=== PATIENT | female | born 1980 | race Caucasian/White ===

== ENCOUNTER 2017-02-13 12:37 | Emergency (ER) | payer SELFPAY ==
--- NOTE | 2017-02-13 14:26 | RAD ---
INDICATION: Cough COMPARISON: None TECHNIQUE: PA and lateral views of the chest were obtained. FINDINGS: The heart and mediastinum are normal in size and contour. The lungs are grossly clear. There is no evidence of large pleural effusion. Visualized bones are normal for the patient's age. There is no radiographic evidence of free air beneath the diaphragm IMPRESSION: No radiographic evidence of acute cardiopulmonary disease.
--- NOTE | 2017-02-13 14:48 | ED ---
Shasta Rocha Erika, scribed for Lobo Cline MD on 02/13/17 at 1334 . Palpitations / Dysrhythmia - HPI Summary HPI Summary: Patient is a 36-year-old female presenting to the ED with a CC of palpitations starting a few days ago. Patient reports that she developed a rapid heart rate then. Associated symptoms include SOB and left 4th and 5th finger numbness. Patient also reports that since October 2016, she has had a cough, nausea, and decreased appetite. Cough is aggravated by deep breathing. Patient also reports symptoms of polydipsia and polyuria, and intermittent bilateral lower extremity swelling. Patient reports she has been under a lot of stress. She denies any chest pain. Patient takes suboxone and sertraline. Patient reports suboxone treatment started after patient was prescribed oxycodone for knee pain a few years ago. Hx kidney stones, anxiety. Patient is followed by Dr. Robertson. Patient smokes and is trying to quit. - History of Current Complaint Chief Complaint: EDShortnessOfBreath Time Seen by Provider: 02/13/17 12:55 Hx Obtained From: Patient Onset/Duration: Gradual Onset, Lasting Days, Still Present Timing: Constant Severity Currently: Moderate Character: Fast Alleviating: Nothing Associated Signs & Symptoms: Shortness of Breath - Allergy/Home Medications Allergies/Adverse Reactions: Allergies Allergy/AdvReac Type Severity Reaction Status Date / Time No Known Allergies Allergy Verified 02/13/17 12:45 PMH/Surg Hx/FS Hx/Imm Hx Endocrine/Hematology History: Reports: Hx Diabetes - Gestational Diabetes Denies: Hx Thyroid Disease Cardiovascular History: Denies: Hx Hypertension Respiratory History: Denies: Hx Asthma, Hx Chronic Obstructive Pulmonary Disease (COPD) GI History: Denies: Hx Ulcer Psychiatric History: Reports: Hx Anxiety, Hx Depression Denies: Hx Eating Disorder, Hx of Violent Episodes Against Others - Surgical History Surgery Procedure, Year, and Place: KIDNEY STENTS, C SECTION Infectious Disease History: Yes Infectious Disease History: Reports: Hx Shingles - Age 71` Denies: Hx Hepatitis, Hx Human Immunodeficiency Virus (HIV), Traveled Outside the [place] in Last 30 Days - Family History Known Family History: Positive: Other - depression - Social History Alcohol Use: Daily Alcohol Amount: 2 drinks Hx Substance Use: No Substance Use Type: Reports: None Hx Tobacco Use: Yes Smoking Status (MU): Light Every Day Tobacco Smoker Type: Cigarettes Review of Systems Constitutional: Other - polydipsia and polyuria Positive: Palpitations. Negative: Chest Pain Positive: Shortness Of Breath, Cough Positive: Nausea - with decreased appetite Positive: Edema - bilateral Positive: Numbness - left 4th and 5th fingers Positive: Anxious - with stress All Other Systems Reviewed And Are Negative: Yes Physical Exam Triage Information Reviewed: Yes Vital Signs On Initial Exam: Initial Vitals Temp Pulse Resp BP Pulse Ox 98.8 F 102 16 143/83 97 02/13/17 12:40 02/13/17 12:40 02/13/17 12:40 02/13/17 12:40 02/13/17 12:40 Vital Signs Reviewed: Yes Appearance: Positive: Well-Appearing, No Pain Distress, Obese Skin: Positive: Warm, Skin Color Reflects Adequate Perfusion, Dry, Other - Skin popping scars Head/Face: Positive: Normal Head/Face Inspection Eyes: Positive: Normal ENT: Positive: Normal ENT inspection Neck: Positive: Supple, Nontender Respiratory/Lung Sounds: Positive: Breath Sounds Present, Rhonchi - bilateral lung bases Cardiovascular: Positive: Tachycardia Abdomen Description: Positive: Nontender, Soft Bowel Sounds: Positive: Present Musculoskeletal: Positive: Normal Neurological: Positive: Normal Psychiatric: Positive: Anxious - [place] Coma Scale Coma Scale Total: 15 Diagnostics - Vital Signs Vital Signs Temp Pulse Resp BP Pulse Ox 02/13/17 12:40 98.8 F 102 16 143/83 97 - Laboratory Lab Results: Lab Results 02/13/17 Range/Units 13:22 Influenza A (Rapid) Negative (Negative) Influenza B (Rapid) Negative (Negative) Lab Statement: Any lab studies that have been ordered have been reviewed, and results considered in the medical decision making process. - Radiology CXR Radiology Interpretation Completed By: Radiologist - IMPRESSION: No radiographic evidence of acute cardiopulmonary disease. - EKG 12:56 Cardiac Rate: Tachycardia - borderline at 103 bpm EKG Rhythm: Sinus Tachycardia Re-Evaluation - Re-Evaluation First Eval Re-Evaluation Time: 14:41 Comment: Discussed all results with patient and answered patient's questions. Patient is no longer tachycardic. Pt will be discharged at this time Course/Dx - Course Course Of Treatment: Ms. Martinez C/O a productive cough and occasional rapid heart rate. She is trying to cut down on smoking and is down to about 1/2 ppd. She denies CP or SOB to me, her HR is initially about 100 and she is visibly anxious. A CXR was negative and her lungs were clear although she had paoxysmal coughing during the exam. After she calmed down, her HR dropped down and I am going to treat her for acute bronchitis and recommend close F/U. - Diagnoses Provider Diagnoses: Bronchitis Discharge - Discharge Plan Condition: Stable Disposition: HOME Prescriptions: Clarithromycin TAB* [Biaxin TAB*] 500 mg PO BID #20 tab guaiFENesin/CODIEN 100MG-10MG* [Robitussin AC 100Mg-10Mg*] 5 ml PO Q4H PRN #250 udc MDD 30 PRN Reason: Cough Patient Education Materials: Acute Bronchitis (ED) Referrals: Patricio Robertson MD [Medical Doctor] - 2 Days Additional Instructions: Please follow up with Dr. Robertson. The documentation as recorded by the Shasta levin Erika accurately reflects the service I personally performed and the decisions made by me, Lobo Cline MD.
[2017-02-13 15:02] VITALS: BP 127/72
== END 2017-02-13 15:01 | disposition home or self-care (01) ==
LOC: ED 12:37
DX: J40 Bronchitis, not specified as acute or chronic (principal); R00.0 Tachycardia, unspecified
CPT/HCPCS: 71020; 87502; 93005; 99283

== ENCOUNTER 2017-02-28 10:53 | Emergency (ER) | payer MEDICAID ==
[2017-02-28 11:21] VITALS: BP 147/85
--- NOTE | 2017-03-07 14:53 | UC ---
Nalini Rocha Alok, scribed for Vashti Hayden DO on 02/28/17 at 1218 . Complaint Female HPI - HPI Summary HPI Summary: 36 y/o female presents to the with N/V/D and c/o inability to tolerate food for over a month. Pt states that she is able to ingest liquid foods but often vomits it back up later, whereas solid food she is unable to ingest at all. Pt states her abd feels distended with tenderness to palpation and has lost about 15-20 lbs in the last month. Her nausea has been continuous, vomiting at least twice a day and her diarrhea is dark. Additionally, pt notes bilateral lower extremity edema with pruritus and erythema. Pt also notes some chills, scleral icterous as of two days ago, finger numbness in her left hand, lightheadedness, fatigue, dark urine color, heart racing, and SOB. Pt denies confusion, fever, sore throat, or ear ache. PMHx includes intrehepatic cholestasis and gestational DM during her last about 6 years ago with liver enzyme elevation she did not follow up on. Pt was last diagnosed with bronchitis 3 weeks ago after visiting the ED for increased HR, leg swelling, and a cough. Pt takes Zoloft and Soboxone. Pt states she has been stressed at home, and drinks EtOH daily approximately 4 drinks/day plus 15 cigarettes/day tobacco product. - History Of Current Complaint Chief Complaint: UCGeneralIllness Stated Complaint: NAUSEA,DIZZY,CONFUSED Time Seen by Provider: 02/28/17 11:00 Hx Obtained From: Patient Hx Last Menstrual Period: unknown ?: No Onset/Duration: Gradual Onset, Lasting Weeks, Still Present Timing: Constant Severity Initially: Moderate Severity Currently: Moderate Aggravating Factor(s): Nothing Alleviating Factor(s): Nothing Associated Signs And Symptoms: Positive: Nausea, Vomiting(# Of Episodes =) - twice per day. Negative: Fever - Allergies/Home Medications Allergies/Adverse Reactions: Allergies Allergy/AdvReac Type Severity Reaction Status Date / Time No Known Allergies Allergy Verified 02/28/17 11:21 PMH/Surg Hx/FS Hx/Imm Hx Previously Healthy: No Endocrine History Of: Reports: Diabetes - Gestational Diabetes Denies: Thyroid Disease Cardiovascular History Of: Denies: Cardiac Disorders, Hypertension Respiratory History Of: Denies: COPD, Asthma GI/ History Of: Denies: Ulcer - liver dz Psychological History Of: Reports: Anxiety, Depression - Surgical History Surgical History: Yes Surgery Procedure, Year, and Place: KIDNEY STENTS, C SECTION - Family History Known Family History: Positive: Hypertension - Mother, Diabetes - Grandmother, Other - depression Family History: R & n/C - Social History Lives: With Family Alcohol Use: Daily Alcohol Amount: 3 drinks per day Substance Use Type: None, Prescribed Substance Use Comment - Amount & Last Used: suboxone Smoking Status (MU): Light Every Day Tobacco Smoker Type: Cigarettes Amount Used/How Often: 1/2ppd Cessation Counseling: Patient Advised to Stop - Immunization History Most Recent Influenza Vaccination: [id number] Most Recent Tetanus Shot: Pt is unsure Most Recent Pneumonia Vaccination: never Review of Systems Constitutional: Chills Skin: Rash - bl le redness Eyes: Other - scleral icterous ENT: Negative Respiratory: Shortness Of Breath Cardiovascular: Negative Gastrointestinal: Abdominal Pain, Vomiting, Diarrhea Genitourinary: Other - Dark urine Motor: Negative Neurovascular: Other - left hand finger numbness Musculoskeletal: Edema - bl le Neurological: Weakness Psychological: Anxious All Other Systems Reviewed And Are Negative: Yes Physical Exam Triage Information Reviewed: Yes Appearance: No Pain Distress, Ill-Appearing - mild, Obese Vital Signs: Initial Vital Signs Temp 96.7 F 02/28/17 11:14 Pulse 108 02/28/17 11:14 Resp 24 02/28/17 11:14 BP 147/85 02/28/17 11:14 Pulse Ox 98 02/28/17 11:14 Vital Signs Reviewed: Yes Eyes: Positive: Other: - borderline sclera icterus. Negative: Discharge ENT: Positive: Hearing grossly normal. Negative: Muffled/hoarse voice Neck exam: Normal Neck: Positive: Supple Respiratory: Positive: Lungs clear, Normal breath sounds, No respiratory distress, No accessory muscle use Cardiovascular: Positive: RRR, No Murmur Abdomen Description: Positive: Distended, Hepatomegaly, Other: - eval for shifting dullness inconclusive. Negative: CVA Tenderness (R), CVA Tenderness (L ), Guarding, [place]'s Point Tenderness Bowel Sounds: Positive: Present Musculoskeletal Exam: Normal Neurological: Positive: Alert, Muscle Tone Normal Psychological Exam: Normal Psychological: Positive: Age Appropriate Behavior Skin Exam: Normal, Other - warm, dry, normal color Diagnostics - EKG Cardiac Rate: Tachycardia - 106 bpm Cardiac Rhythm: Sinus: New - Time: 1105. No ST Elevations Complaint Female Dx - Differential Dx/Diagnosis Differential Diagnosis/HQI/PQRI: Urinary Tract Infection, Other - hepatitis, ascites, metabolic abnormality Provider Diagnoses: lower extremity edema Discharge - Discharge Plan Condition: Stable Disposition: TRANS HIGHER LVL OF CARE FAC Referrals: Brian Rios MD [Primary Care Provider] - The documentation as recorded by the Nalini levin Alok accurately reflects the service I personally performed and the decisions made by , Vashti Hayden DO.
== END 2017-02-28 13:20 | disposition short-term general hospital (02) ==
LOC: UCEAST 10:53
DX: R60.0 Localized edema (principal); R06.02 Shortness of breath; R42 Dizziness and giddiness; R53.83 Other fatigue; R21 Rash and other nonspecific skin eruption; R11.2 Nausea with vomiting, unspecified; R20.0 Anesthesia of skin; R00.0 Tachycardia, unspecified; F41.8 Other specified anxiety disorders; E66.9 Obesity, unspecified; F17.210 Nicotine dependence, cigarettes, uncomplicated
CPT/HCPCS: 93005; 99213; G0463

== ENCOUNTER 2017-02-28 13:36 | Inpatient (IN) | payer MEDICAID, OTHER ==
[2017-02-28] MEDS ORDERED: NS 0.9% 1000 ML* 1,000 ML IV ONE (15:00)
[2017-02-28] MEDS ORDERED: Ondansetron INJ* 2 MG/ML VIAL IV ONE (15:00)
[2017-02-28 15:30] LABS: Hematocrit 32 % (35-47); Hemoglobin 10.7 g/dl (12.0-16.0); Mean Corpuscular HGB Conc 34 g/dl (31-36); Mean Corpuscular Hemoglobin 33 pg (27-31); Mean Corpuscular Volume 100 fL (80-97); Mean Platelet Volume 11 um3 (7.4-10.4); Red Blood Count 3.21 10^6/ul (4.0-5.4); Red Cell Distribution Width 16 % (10.5-15); White Blood Count 9.7 10^3/ul (3.5-10.8)
[2017-02-28 15:53] LABS: Urine Bacteria Absent (Absent); Urine Bilirubin 2+ (Negative); Urine Glucose Negative (Negative); Urine Nitrite Negative (Negative)
[2017-02-28 16:03] LABS: ALT 59 U/L (7-52); AST 201 U/L (13-39); Albumin 2.7 g/dL (3.2-5.2); Alkaline Phosphatase 292 U/L (34-104); Anion Gap 8 mmol/L (2-11); BUN/Creatinine Ratio 6.8 (8-20); Blood Urea Nitrogen 3 mg/dL (6-24); CO2 Carbon Dioxide 29 mmol/L (22-32); Calcium 8.3 mg/dL (8.6-10.3); Chloride 98 mmol/L (101-111); EGFR African American 206.9 (>60); EGFR Non-African American 160.9 (>60); Globulin 4.8 g/dL (2-4); Glucose 162 mg/dL (70-100); Potassium 3.2 mmol/L (3.5-5.0); Sodium 135 mmol/L (133-145); Total Protein 7.5 g/dL (6.4-8.9)
--- NOTE | 2017-02-28 16:06 | RAD ---
INDICATION: Distended abdomen, enlarged liver and evaluate for ascites. COMPARISON: Comparison is made with a prior CT of the abdomen and pelvis from November 25, 2013. TECHNIQUE: Multiple real-time images of the right upper quadrant were obtained. FINDINGS: The gallbladder appear normal. No gallbladder wall thickening or pericholecystic fluid is present. No intra or extrahepatic ductal distention is present. The common bile duct measured 0.5 cm in diameter. The liver is enlarged and heterogeneous in echogenicity. No focal abnormality is seen. The portal vein is not well visualized. The pancreas is not visualized. The right kidney is normal in size without evidence for hydronephrosis. There is a small amount of ascites adjacent to the liver. IMPRESSION: 1. ENLARGED HETEROGENEOUS LIVER. 2. SMALL AMOUNT OF ASCITES.
--- NOTE | 2017-02-28 16:15 | RAD ---
INDICATION: Nausea. COMPARISON: Comparison is made with a prior chest x-ray study from our 26 2017. TECHNIQUE: A portable view of the chest was obtained. FINDINGS: Cardiac and mediastinal contours appear to be within normal limits. The lungs are clear. No pleural effusion is seen. IMPRESSION: NO EVIDENCE FOR ACUTE DISEASE.
[2017-02-28] MEDS ORDERED: Potassium Chlor TAB* 20 MEQ TAB.ER PO ONE (17:31)
--- NOTE | 2017-02-28 17:34 | ED ---
Aj, DoctorChinyere, scribed for Miroslava Bonds MD on 02/28/17 at 1501 . Complex/Multi-Sys Presentation - HPI Summary HPI Summary: 36 year old female arrived to [facility] c/o nausea and decreased appetite for the past few weeks. She reports vomiting, diarrhea, and stomach distention as well. Pt was dx with Bronchitis at [facility] a few weeks ago; no longer coughing. She reports a PMHx of gestational diabetes and intrahepatic cholestasis with her past two pregnancies. Additionally, pt is a regular drinker and reports skin diaphoresis with alcohol withdrawal; pt has history with narcotics abuse ( currently taking Seboxone). - History Of Current Complaint Chief Complaint: EDWeakness Hx Obtained From: Patient Onset/Duration: Gradual Onset Timing: Constant Severity Currently: Moderate Severity Initially: Moderate Associated Signs And Symptoms: Positive: Nausea, Vomiting, Diarrhea, Decreased Oral Intake, Diaphoresis - with alcohol withdrawal, Other - stomach distention - Allergies/Home Medications Allergies/Adverse Reactions: Allergies Allergy/AdvReac Type Severity Reaction Status Date / Time No Known Allergies Allergy Verified 02/28/17 11:21 Home Medications: Home Medications Buprenorphine/Naloxone SL TAB* [Suboxone 8-2 mg SL TAB*] 1 tab.sl SL DAILY 02/28 [History Confirmed 02/28/17] PMH/Surg Hx/FS Hx/Imm Hx Endocrine/Hematology History: Reports: Hx Diabetes - Gestational Diabetes Denies: Hx Thyroid Disease Cardiovascular History: Denies: Hx Hypertension Respiratory History: Denies: Hx Asthma, Hx Chronic Obstructive Pulmonary Disease (COPD) GI History: Denies: Hx Ulcer Psychiatric History: Reports: Hx Anxiety, Hx Depression Denies: Hx Eating Disorder, Hx of Violent Episodes Against Others - Surgical History Surgery Procedure, Year, and Place: KIDNEY STENTS, C SECTION Infectious Disease History: No Infectious Disease History: Reports: Hx Shingles - Age 71` Denies: Hx Hepatitis, Hx Human Immunodeficiency Virus (HIV), Traveled Outside the [place] in Last 30 Days - Family History Known Family History: Positive: Other - depression Family History: R & n/C - Social History Occupation: Employed Full-time Lives: With Family Alcohol Use: Daily Alcohol Amount: 3 drinks per day Hx Substance Use: No Substance Use Type: Reports: None, Prescribed Substance Use Comment - Amount & Last Used: suboxone Hx Tobacco Use: Yes Smoking Status (MU): Light Every Day Tobacco Smoker Type: Cigarettes Amount Used/How Often: 1/2ppd Review of Systems Positive: Skin Diaphoresis - with alcohol withdrawal. Negative: Fever Positive: Vomiting, Diarrhea, Nausea, Other - decreased per os intake Positive: Other - stomach distention All Other Systems Reviewed And Are Negative: Yes Physical Exam Triage Information Reviewed: Yes Vital Signs On Initial Exam: Initial Vitals Temp Pulse Resp BP Pulse Ox 99.8 F 104 18 146/79 96 02/28/17 13:44 02/28/17 13:44 02/28/17 13:44 02/28/17 13:44 02/28/17 13:44 Vital Signs Reviewed: Yes Appearance: Positive: Well-Appearing, No Pain Distress Skin: Positive: Warm, Skin Color Reflects Adequate Perfusion, Dry Eyes: Positive: EOMI, ADDI ENT: Positive: Pharynx normal, TMs normal Neck: Positive: Supple, Nontender Respiratory/Lung Sounds: Positive: Clear to Auscultation, Breath Sounds Present. Negative: Rales, Rhonchi, Wheezes Cardiovascular: Positive: RRR. Negative: Murmur, Rub Abdomen Description: Positive: Soft, Other: - Liver edge 4 cm below position. Negative: Nontender Bowel Sounds: Positive: Present Musculoskeletal: Positive: Strength/ROM Intact, Edema Left - some bilateral lower extremity edema, Edema Right - some bilateral lower extremity edema Neurological: Positive: Sensory/Motor Intact, Alert, Oriented to Person Place, Time, CN Intact II-III Psychiatric: Positive: Affect/Mood Appropriate - [place] Coma Scale Coma Scale Total: 15 Diagnostics - Vital Signs Vital Signs Temp Pulse Resp BP Pulse Ox 02/28/17 13:45 99.8 F 103 18 146/79 96 02/28/17 13:44 99.8 F 104 18 146/79 96 - Laboratory Lab Results: Lab Results 02/28/17 02/28/17 02/28/17 Range/Units 12:40 12:40 12:40 WBC 9.7 (3.5-10.8) 10^3/ul RBC 3.21 L (4.0-5.4) 10^6/ul Hgb 10.7 L (12.0-16.0) g/dl Hct 32 L (35-47) % MCV 100 H (80-97) fL MCH 33 H (27-31) pg MCHC 34 (31-36) g/dl RDW 16 H (10.5-15) % Plt Count 119 L (150-450) 10^3/ul MPV 11 H (7.4-10.4) um3 Neut % (Auto) 84.8 H (38-83) % Lymph % (Auto) 8.8 L (25-47) % [place] % (Auto) 5.1 (1-9) % Eos % (Auto) 0.5 (0-6) % Baso % (Auto) 0.8 (0-2) % Absolute Neuts (auto) 8.2 H (1.5-7.7) 10^3/ul Absolute Lymphs (auto) 0.9 L (1.0-4.8) 10^3/ul Absolute Monos (auto) 0.5 (0-0.8) 10^3/ul Absolute Eos (auto) 0 (0-0.6) 10^3/ul Absolute Basos (auto) 0.1 (0-0.2) 10^3/ul Absolute Nucleated RBC 0 10^3/ul Nucleated RBC % 0 INR (Anticoag Therapy) 1.65 H (0.89-1.11) APTT 38.0 H (26.0-36.3) seconds Sodium 135 (133-145) mmol/L Potassium 3.2 L (3.5-5.0) mmol/L Chloride 98 L (101-111) mmol/L Carbon Dioxide 29 (22-32) mmol/L Anion Gap 8 (2-11) mmol/L BUN 3 L (6-24) mg/dL Creatinine 0.44 L (0.51-0.95) mg/dL Est GFR ( Amer) 206.9 (>60) Est GFR (Non-Af Amer) 160.9 (>60) BUN/Creatinine Ratio 6.8 L (8-20) Glucose 162 H (70-100) mg/dL Lactic Acid (0.5-2.0) mmol/L Calcium 8.3 L (8.6-10.3) mg/dL Total Bilirubin 6.60 H (0.2-1.0) mg/dL AST 201 H (13-39) U/L ALT 59 H (7-52) U/L Alkaline Phosphatase 292 H (34-104) U/L Ammonia (16-53) mol/L Troponin I Pending Total Protein 7.5 (6.4-8.9) g/dL Albumin 2.7 L (3.2-5.2) g/dL Globulin 4.8 H (2-4) g/dL Albumin/Globulin Ratio 0.6 L (1-3) Beta HCG, Quant Pending Urine Color Urine Appearance Urine pH (5-9) Ur Specific [place] (1.010-1.030) Urine Protein (Negative) Urine Ketones (Negative) Urine Blood (Negative) Urine Nitrate (Negative) Urine Bilirubin (Negative) Urine Urobilinogen (Negative) Ur Leukocyte Esterase (Negative) Urine WBC (Auto) (Absent) Urine RBC (Auto) (Absent) Ur Squamous Epith Cells (Absent) Urine Bacteria (Absent) Urine Glucose (Negative) 02/28/17 02/28/17 02/28/17 Range/Units 15:40 15:40 15:40 WBC (3.5-10.8) 10^3/ul RBC (4.0-5.4) 10^6/ul Hgb (12.0-16.0) g/dl Hct (35-47) % MCV (80-97) fL MCH (27-31) pg MCHC (31-36) g/dl RDW (10.5-15) % Plt Count (150-450) 10^3/ul MPV (7.4-10.4) um3 Neut % (Auto) (38-83) % Lymph % (Auto) (25-47) % [place] % (Auto) (1-9) % Eos % (Auto) (0-6) % Baso % (Auto) (0-2) % Absolute Neuts (auto) (1.5-7.7) 10^3/ul Absolute Lymphs (auto) (1.0-4.8) 10^3/ul Absolute Monos (auto) (0-0.8) 10^3/ul Absolute Eos (auto) (0-0.6) 10^3/ul Absolute Basos (auto) (0-0.2) 10^3/ul Absolute Nucleated RBC 10^3/ul Nucleated RBC % INR (Anticoag Therapy) (0.89-1.11) APTT (26.0-36.3) seconds Sodium (133-145) mmol/L Potassium (3.5-5.0) mmol/L Chloride (101-111) mmol/L Carbon Dioxide (22-32) mmol/L Anion Gap (2-11) mmol/L BUN (6-24) mg/dL Creatinine (0.51-0.95) mg/dL Est GFR ( Amer) (>60) Est GFR (Non-Af Amer) (>60) BUN/Creatinine Ratio (8-20) Glucose (70-100) mg/dL Lactic Acid 1.6 (0.5-2.0) mmol/L Calcium (8.6-10.3) mg/dL Total Bilirubin (0.2-1.0) mg/dL AST (13-39) U/L ALT (7-52) U/L Alkaline Phosphatase (34-104) U/L Ammonia 101 H (16-53) mol/L Troponin I Total Protein (6.4-8.9) g/dL Albumin (3.2-5.2) g/dL Globulin (2-4) g/dL Albumin/Globulin Ratio (1-3) Beta HCG, Quant Urine Color Sue Urine Appearance Clear Urine pH 7.0 (5-9) Ur Specific [place] 1.014 (1.010-1.030) Urine Protein 2+(100 mg/dl) H (Negative) Urine Ketones Negative (Negative) Urine Blood Negative (Negative) Urine Nitrate Negative (Negative) Urine Bilirubin 2+ H (Negative) Urine Urobilinogen Positive H (Negative) Ur Leukocyte Esterase Negative (Negative) Urine WBC (Auto) Trace(0-5/hpf) (Absent) Urine RBC (Auto) Trace(0-2/hpf) (Absent) Ur Squamous Epith Cells Present H (Absent) Urine Bacteria Absent (Absent) Urine Glucose Negative (Negative) Result Diagrams: 02/28/17 12:40 02/28/17 12:40 Lab Statement: Any lab studies that have been ordered have been reviewed, and results considered in the medical decision making process. - Radiology CXR Radiology Interpretation Completed By: Radiologist - IMPRESSION: NO EVIDENCE FOR ACUTE DISEASE. - Ultrasound No standard instances Ultrasound Interpretation Completed By: Radiologist - Abdomen US IMPRESSION: 1. ENLARGED HETEROGENEOUS LIVER. 2. SMALL AMOUNT OF ASCITES. Complex Multi-Symp Course/Dx Course Of Treatment: 36 yo female with a difficult social situation,she is leaving the father of her children. Both the father and the pt drink heavily, she is stable on suboxone for opiate use disorder (she has never injected drugs ) and reports several weeks of vomiting and at this point not being able to keep anything down, she notices that her abdomen is bloated. She does admit to being quite fearful that her symptoms are due to her liver. Her labs show she does have cirhossis and GI and the hospitalists have been contacted - Diagnoses Provider Diagnoses: Cirrhosis, Alcoholism - Physician Notifications Discussed Care Of Patient With: 15:18 - Discussed care of pt with Dr. Anthony ( hospitalist), agrees to admit pt. 16:37 - Discussed care of pt with Dr. Nash (GI) Discharge - Discharge Plan Condition: Stable Disposition: ADMITTED TO [facility] The documentation as recorded by the Doctor levin Tahera accurately reflects the service I personally performed and the decisions made by me, Miroslava Bonds MD.
[2017-02-28] MEDS ORDERED: Nicotine Inhaler* 10 MG AMP INH PRN (17:49)
[2017-02-28] MEDS: Spironolactone TAB* 25 MG PO SCH (18:13)
[2017-02-28] MEDS: Thiamine TAB* 100 MG TAB PO SCH (18:14)
[2017-02-28] MEDS: Nicotine PATCH 14 MG/24 HR* PATCH TRANSDERM SCH (18:14)
[2017-02-28 18:27] LABS: Troponin I 0.01 ng/mL (<0.04)
[2017-02-28] MEDS: Lactulose* 15 ML UDC PO SCH (21:24)
[2017-02-28] MEDS: Nicotine Patch Removal NOTE PATCH OFF SCH (21:24)
[2017-02-28] MEDS: LORazepam TAB(*) 1 MG PO SCH (22:32)
[2017-02-28] MEDS ORDERED: CMCS - Melatonin (NF) 3 MG TAB PO PRN (22:59)
[2017-03-01] MEDS: LORazepam TAB(*) 1 MG PO SCH (00:50)
[2017-03-01 05:02] LABS: Hematocrit 30 % (35-47); Hemoglobin 10.2 g/dl (12.0-16.0); Mean Corpuscular HGB Conc 34 g/dl (31-36); Mean Corpuscular Hemoglobin 34 pg (27-31); Mean Corpuscular Volume 100 fL (80-97); Mean Platelet Volume 10 um3 (7.4-10.4); Red Blood Count 3.04 10^6/ul (4.0-5.4); Red Cell Distribution Width 16 % (10.5-15); White Blood Count 9.5 10^3/ul (3.5-10.8)
[2017-03-01 05:17] LABS: Albumin 2.4 g/dL (3.2-5.2); Calcium 7.9 mg/dL (8.6-10.3); EGFR African American 153.5 (>60); EGFR Non-African American 119.3 (>60); Globulin 4.7 g/dL (2-4); Potassium 3.1 mmol/L (3.5-5.0); Total Bilirubin 7.1 mg/dL (0.2-1.0); Total Protein 7.1 g/dL (6.4-8.9)
--- NOTE | 2017-03-01 06:05 | HP ---
HISTORY AND PHYSICAL: DATE OF ADMISSION: 02/28/17 PRIMARY CARE PHYSICIAN: Dr. Robertson. CHIEF COMPLAINT: Generalized weakness. HISTORY OF PRESENT ILLNESS: Ms. Martinez is a 36-year-old female with history of daily alcohol use ever since she turned 18 with a short break of a few months in between August 2016 and November 2016. Also, has a history of chronic narcotic use and she was placed on Suboxone by her primary care provider. The patient stated that for the past month she has been having early satiety. She lost approximately 15 pounds of weight, although she also noted that her abdomen had increased circumference and her legs were more swollen. She also noted more pruritus, especially on the skin in bilateral lower extremities. She states that she drinks at least 5 heavy liquor drinks a day. Once again, she started drinking when she was 18. PAST MEDICAL HISTORY: 1. History of liver cholestasis during her pregnancies in 2004 and 2009. 2. Depression. 3. History of alcohol use in the past. 4. History of osteoarthritis of the knee, history of chronic narcotic use due to that and currently on Suboxone. 5. History of depression. 6. Agoraphobia. 7. Anxiety. MEDICATIONS: Include: 1. Suboxone 1 tablet daily. 2. Zoloft 50 mg daily. ALLERGIES: No known drug allergies. FAMILY HISTORY: Positive for mother who at the age of 60 of bladder cancer. Father secondary to COPD. SOCIAL HISTORY: The patient denies any drug use. She smoked approximately a little bit less than a pack a day and she started smoking when she was a teenager. Alcohol use as above. She is . Her also has problems with alcohol. As a surrogate, she names her father, Blake Guzman. REVIEW OF SYSTEMS: Please see history of present illness. Positive for weight loss of 15 pounds in the past 4 weeks. For the past month, the patient had problems with 4 to 5 loose bowel movements a day. She denies abdominal pain. She denies any increase in abdominal girth and leg edema. She also noted generalized weakness. She stated that her skin was "itchy" and she had been scratching it on her legs. All the remaining 14 systems were reviewed with the patient and were otherwise negative. The patient's last drink was yesterday. PHYSICAL EXAMINATION GENERAL: The patient is a very pleasant 36-year-old female who is in no acute distress. The patient is alert, awake, and oriented x3. Tearful during the evaluation due to her diagnosis. VITAL SIGNS: Blood pressure 131/79, heart rate of 116 and regular, respiratory rate 18, oxygen saturation 96% on room air, and temperature of 99.8. HEENT: Head: Atraumatic, normocephalic. Eyes: Pupils equal, reactive to light and accommodation. Scleral icterus noted bilaterally. Oropharynx clear. Mucosa moist. NECK: Supple. No JVD, no bruit bilaterally. RESPIRATORY: Clear to auscultation bilaterally. CARDIOVASCULAR: Regular rate and rhythm. No murmurs. ABDOMEN: Very protuberant. Soft, nontender. Hepatomegaly is palpated approximately 8 cm below the right costal margin. Marked moderate ascites noted. EXTREMITIES: There is trace bilateral pedal edema. Pulses +2 bilaterally. No clubbing or cyanosis. Upon evaluation of the skin, the patient is jaundiced. There are superficial excoriations noted in bilateral lower extremities. NEUROLOGIC: Cranial nerves II through XII grossly intact. Motor strength is 5/ 5 bilaterally. PSYCHIATRIC EVALUATION: The patient is visibly upset about diagnosis of liver failure. Otherwise, there is no anxiety noted. LABORATORY DATA AND DIAGNOSTIC STUDIES: Showed sodium of 135, potassium of 3.2 , chloride 98, carbon dioxide 29, BUN 3, creatinine 0.44. Liver function tests showed bilirubin of 6.6, AST of 201, ALT of 59, alkaline phosphatase of 292. Ammonia was 101. Albumin of 2.7, globulin of 4.8. INR was 1.6. Urinalysis showed +2 protein, +2 bilirubin. Ultrasound of the abdomen, impression: "Enlarged heterogenous liver. Small amount of ascites." Portable chest x-ray, impression: "No evidence of acute disease." ASSESSMENT AND PLAN: A 36-year-old female with a history of alcohol use on a daily basis as well as depression and chronic narcotic use, currently on Suboxone, who presents with acute renal failure. In regards to the patient's acute renal failure, it is most likely alcoholic. Nevertheless, antimitochondrial antibody is going to be obtained as well as acute hepatitis panel. The patient is going to be placed on Aldactone and omeprazole. Dr. Lechuga will see the patient in consult in the morning. In regards to the patient's chronic pain, I educated the patient that Suboxone is contraindicated in liver failure. The patient is going to be weaned off narcotic opioid medications. If she develops withdrawal, she may need to be treated with benzodiazepines and/or clonidine. In regards to alcoholism, as above mentioned, benzodiazepines are going to be used for withdrawal. The patient is also going to be placed on thiamine and folate. Social work consult is going to be requested. In regards to DVT prophylaxis, the patient is at low risk and ambulation is encouraged. In regards to tobacco abuse, the patient was counseled to quit. The patient is going to be placed on nicotine patch and nicotine inhaler as needed. TIME SPENT: Approximately 65 minutes were spent on admission of this patient, more than half that time was spent [id number] with the patient during the interview and physical exam. CC: Dr. Lechuga; Dr. Robertson* [id number]/[facility] #: [id number] MTDD
[2017-03-01] MEDS: Omeprazole CAP* 20 MG PO SCH (06:17)
[2017-03-01] MEDS ORDERED: Potassium Chlor TAB* 20 MEQ TAB.ER PO ONE (07:19)
[2017-03-01] MEDS: Thiamine TAB* 100 MG TAB PO SCH (08:05)
[2017-03-01] MEDS: Folic Acid TAB* 1 MG PO SCH (08:05)
[2017-03-01] MEDS: Multivitamins/Minerals TAB PO SCH (08:05)
[2017-03-01] MEDS: Sertraline* 50 MG TAB PO SCH (08:05)
[2017-03-01] MEDS: Spironolactone TAB* 25 MG PO SCH (08:05)
[2017-03-01] MEDS: Lactulose* 15 ML UDC PO SCH (08:06)
[2017-03-01] MEDS: Nicotine PATCH 14 MG/24 HR* PATCH TRANSDERM SCH (08:07)
--- NOTE | 2017-03-01 13:59 | PN ---
Subjective Date of Service: 03/01/17 Interval History: pt feels "more awake". Has occasional "pulling sensation" on R abd when moving. Pt c/o mild tremor and seeing "animal faces" when eyes closed. Objective Active Medications: Folic Acid (Folvite Tab*) 1 mg PO DAILY [facility] Last Admin: 03/01/17 08:05 Dose: 1 mg Lactulose (Lactulose*) 15 ml PO BID [facility] Last Admin: 03/01/17 08:06 Dose: 15 ml Lorazepam (Ativan Tab(*)) 0 mg PO .[facility] PRN Reason: Protocol Last Admin: 03/01/17 00:50 Dose: 1 mg Melatonin (Melatonin (Nf)) 3 mg PO BEDTIME PRN; Protocol PRN Reason: Sleep Last Admin: 03/01/17 00:51 Dose: 3 mg Multivitamins/Minerals (Theragran/Minerals Tab*) 1 tab PO DAILY [facility] Last Admin: 03/01/17 08:05 Dose: 1 tab Nicotine (Nicotine Inhaler*) 10 mg INH Q2H PRN PRN Reason: CRAVING Nicotine (Nicotine Patch 14 Mg/24 Hr*) 1 patch TRANSDERM Q24HR [facility] Last Admin: 03/01/17 08:07 Dose: 1 patch Omeprazole (Prilosec Cap*) 20 mg PO DAILY@0600 [facility] Last Admin: 03/01/17 06:17 Dose: 20 mg Pharmacy Profile Note (Nicotine Patch Removal Note*) 1 note PATCH OFF 2100 [facility] Last Admin: 02/28/17 21:24 Dose: 1 note Sertraline HCl (Zoloft*) 50 mg PO DAILY [facility] Last Admin: 03/01/17 08:05 Dose: 50 mg Spironolactone (Aldactone Tab*) 25 mg PO DAILY [facility] Last Admin: 03/01/17 08:05 Dose: 25 mg Thiamine HCl (Vitamin B-1 Tab*) 100 mg PO DAILY [facility] Last Admin: 03/01/17 08:05 Dose: 100 mg Vital Signs 02/28/17 02/28/17 02/28/17 18:10 20:00 20:02 Temperature 97.3 F 98.4 F Pulse Rate 104 109 Respiratory 16 20 16 Rate Blood Pressure 149/78 142/72 (mmHg) O2 Sat by Pulse 98 98 Oximetry 02/28/17 02/28/17 03/01/17 22:12 22:32 00:05 Temperature 98.0 F 98.7 F Pulse Rate 101 103 Respiratory 24 20 Rate Blood Pressure 132/71 127/71 (mmHg) O2 Sat by Pulse 98 97 Oximetry 03/01/17 03/01/17 03/01/17 00:50 02:04 04:14 Temperature Pulse Rate 99 96 Respiratory 20 Rate Blood Pressure 109/64 104/47 (mmHg) O2 Sat by Pulse 96 96 Oximetry 03/01/17 03/01/17 03/01/17 08:00 08:25 10:10 Temperature 98.9 F Pulse Rate 101 104 Respiratory 14 14 16 Rate Blood Pressure 106/60 107/75 (mmHg) O2 Sat by Pulse 97 96 Oximetry 03/01/17 12:32 Temperature 98.2 F Pulse Rate 103 Respiratory 14 Rate Blood Pressure 111/68 (mmHg) O2 Sat by Pulse 96 Oximetry Oxygen Devices in Use Now: None Appearance: 36 yo F in nAd, aAOx3 Eyes: PERRLA, - - mild scleral icterus Ears/Nose/Mouth/Throat: NL Teeth, Lips, Gums, Mucous Membranes Moist Neck: NL Appearance and Movements; NL JVP, Trachea Midline Respiratory: Symmetrical Chest Expansion and Respiratory Effort, Clear to Auscultation Cardiovascular: NL Sounds; No Murmurs; No JVD, RRR Abdominal: - - palpable hepatomegaly, mild to mod ascites+, soft, NT, BS+ Skin: No Nodules or Sclerosis, - - mils jaundice Neurological: Alert and Oriented x 3, NL Muscle Strength and Tone Result Diagrams: 03/01/17 04:46 03/01/17 04:46 Additional Lab and Data: Lab Results 02/28/17 02/28/17 02/28/17 Range/Units 12:40 12:40 12:40 WBC 9.7 (3.5-10.8) 10^3/ul RBC 3.21 L (4.0-5.4) 10^6/ul Hgb 10.7 L (12.0-16.0) g/dl Hct 32 L (35-47) % MCV 100 H (80-97) fL MCH 33 H (27-31) pg MCHC 34 (31-36) g/dl RDW 16 H (10.5-15) % Plt Count 119 L (150-450) 10^3/ul MPV 11 H (7.4-10.4) um3 Neut % (Auto) 84.8 H (38-83) % Lymph % (Auto) 8.8 L (25-47) % [place] % (Auto) 5.1 (1-9) % Eos % (Auto) 0.5 (0-6) % Baso % (Auto) 0.8 (0-2) % Absolute Neuts (auto) 8.2 H (1.5-7.7) 10^3/ul Absolute Lymphs (auto) 0.9 L (1.0-4.8) 10^3/ul Absolute Monos (auto) 0.5 (0-0.8) 10^3/ul Absolute Eos (auto) 0 (0-0.6) 10^3/ul Absolute Basos (auto) 0.1 (0-0.2) 10^3/ul Absolute Nucleated RBC 0 10^3/ul Nucleated RBC % 0 INR (Anticoag Therapy) 1.65 H (0.89-1.11) APTT 38.0 H (26.0-36.3) seconds Sodium 135 (133-145) mmol/L Potassium 3.2 L (3.5-5.0) mmol/L Chloride 98 L (101-111) mmol/L Carbon Dioxide 29 (22-32) mmol/L Anion Gap 8 (2-11) mmol/L BUN 3 L (6-24) mg/dL Creatinine 0.44 L (0.51-0.95) mg/dL Est GFR ( Amer) 206.9 (>60) Est GFR (Non-Af Amer) 160.9 (>60) BUN/Creatinine Ratio 6.8 L (8-20) Glucose 162 H (70-100) mg/dL Lactic Acid (0.5-2.0) mmol/L Calcium 8.3 L (8.6-10.3) mg/dL Total Bilirubin 6.60 H (0.2-1.0) mg/dL AST 201 H (13-39) U/L ALT 59 H (7-52) U/L Alkaline Phosphatase 292 H (34-104) U/L Ammonia (16-53) mol/L Troponin I Pending Total Protein 7.5 (6.4-8.9) g/dL Albumin 2.7 L (3.2-5.2) g/dL Globulin 4.8 H (2-4) g/dL Albumin/Globulin Ratio 0.6 L (1-3) Beta HCG, Quant Pending Urine Color Urine Appearance Urine pH (5-9) Ur Specific [place] (1.010-1.030) Urine Protein (Negative) Urine Ketones (Negative) Urine Blood (Negative) Urine Nitrate (Negative) Urine Bilirubin (Negative) Urine Urobilinogen (Negative) Ur Leukocyte Esterase (Negative) Urine WBC (Auto) (Absent) Urine RBC (Auto) (Absent) Ur Squamous Epith Cells (Absent) Urine Bacteria (Absent) Urine Glucose (Negative) 02/28/17 02/28/17 02/28/17 Range/Units 15:40 15:40 15:40 WBC (3.5-10.8) 10^3/ul RBC (4.0-5.4) 10^6/ul Hgb (12.0-16.0) g/dl Hct (35-47) % MCV (80-97) fL MCH (27-31) pg MCHC (31-36) g/dl RDW (10.5-15) % Plt Count (150-450) 10^3/ul MPV (7.4-10.4) um3 Neut % (Auto) (38-83) % Lymph % (Auto) (25-47) % [place] % (Auto) (1-9) % Eos % (Auto) (0-6) % Baso % (Auto) (0-2) % Absolute Neuts (auto) (1.5-7.7) 10^3/ul Absolute Lymphs (auto) (1.0-4.8) 10^3/ul Absolute Monos (auto) (0-0.8) 10^3/ul Absolute Eos (auto) (0-0.6) 10^3/ul Absolute Basos (auto) (0-0.2) 10^3/ul Absolute Nucleated RBC 10^3/ul Nucleated RBC % INR (Anticoag Therapy) (0.89-1.11) APTT (26.0-36.3) seconds Sodium (133-145) mmol/L Potassium (3.5-5.0) mmol/L Chloride (101-111) mmol/L Carbon Dioxide (22-32) mmol/L Anion Gap (2-11) mmol/L BUN (6-24) mg/dL Creatinine (0.51-0.95) mg/dL Est GFR ( Amer) (>60) Est GFR (Non-Af Amer) (>60) BUN/Creatinine Ratio (8-20) Glucose (70-100) mg/dL Lactic Acid 1.6 (0.5-2.0) mmol/L Calcium (8.6-10.3) mg/dL Total Bilirubin (0.2-1.0) mg/dL AST (13-39) U/L ALT (7-52) U/L Alkaline Phosphatase (34-104) U/L Ammonia 101 H (16-53) mol/L Troponin I Total Protein (6.4-8.9) g/dL Albumin (3.2-5.2) g/dL Globulin (2-4) g/dL Albumin/Globulin Ratio (1-3) Beta HCG, Quant Urine Color Sue Urine Appearance Clear Urine pH 7.0 (5-9) Ur Specific [place] 1.014 (1.010-1.030) Urine Protein 2+(100 mg/dl) H (Negative) Urine Ketones Negative (Negative) Urine Blood Negative (Negative) Urine Nitrate Negative (Negative) Urine Bilirubin 2+ H (Negative) Urine Urobilinogen Positive H (Negative) Ur Leukocyte Esterase Negative (Negative) Urine WBC (Auto) Trace(0-5/hpf) (Absent) Urine RBC (Auto) Trace(0-2/hpf) (Absent) Ur Squamous Epith Cells Present H (Absent) Urine Bacteria Absent (Absent) Urine Glucose Negative (Negative) Assess/Plan/Problems-Billing Assessment: 36 yo F with h/o alcohol/tobacco abuse, and chronic Suboxone use present with weakness and early satiety, dx with liver failure - Patient Problems (1) Alcohol withdrawal Comment: pt c/o "seeing anmial faces " when her eyes are closed. mild tremor noted on eval. cont WAM, thiamine, folate. (2) Opioid use disorder, mild, in controlled environment Comment: suboxone contraindicated in liver failure, was stopped (3) Acute liver failure Comment: with alcoholic hepatitis. GI consult requested cont PPI, aldactone Acute hepatitis panel pending Antimitochondrial antibody pending (4) Tobacco abuse Comment: counseled at admission Cont nicotine replacement (5) Hyperammonemia Comment: pt's ammonia level was at 101 at admission, but no clear cut symptoms of hepatic encephalopathy . she c/o feelig tired. started on Lactulose daily. (6) DVT prophylaxis Comment: low risk, ambulation Status and Disposition: inpatient, still requires Ativan for withdrawal symptoms. May be able to go home tomorrow.
[2017-03-01] MEDS: Nicotine Patch Removal NOTE PATCH OFF SCH (22:22)
--- NOTE | 2017-03-02 00:25 | CONS ---
GASTROENTEROLOGY CONSULTATION DATE OF CONSULT: 03/01/17 REFERRING PHYSICIANS: Patricio Robertson MD and Kristin Hagan MD. REASON FOR CONSULTATION: Elevated LFTs in a woman admitting to having 5 drinks a night over the last 3 to 4 months. HISTORY: This 36-year-old woman who is undergoing a fair amount of marital discord and anticipates her leaving in a day or two. Came to the emergency room, weak and nauseated. Her LFTs were up with bilirubin 6.6, AST 210, ALT 59, alkaline phosphatase 292, and albumin 2.7. Her INR was 1.65. She states she had been drinking excessively in the past, mostly beer, but then this got interrupted when she was admitted to a behavioral service in [place] which she describes as being primarily oriented to getting off OxyContin. That had been started 6 years before with knee pain being her complaint at that time. After a couple of months of sobriety, she started drinking alcohol again and this rapidly escalated. She has never had any alcohol withdrawal seizures or shaila DTs. She thinks in November some splotchy redness began in her upper chest area. PAST MEDICAL HISTORY: 1. Cholestasis with - in 2004 and 2009. 2. Opiate dependence - from 2009 through July 2016 and placed on Suboxone. 3. Gestational diabetes. SOCIAL HISTORY: She is from this area and her father and mother a year apart 4 years ago. Her grandfather was a longstanding sports book board attendant in [facility] , [facility]. She has a degree in philosophy from [employer] in [place]. She has children born, February 2005 and October 2010, both from the man she anticipates being from soon. She currently works at [employer] fulltime and says it involves a lot of standing. REVIEW OF SYSTEMS: No history of fevers, TB, hemoptysis, prior hepatitis, palpitations, or syncope. Viral hepatitis serologies have been negative. EXAM: She is alert, oriented, and spontaneously gives a detailed accurate history. HEENT exam shows icterus. She has no adenopathy. There are prominent spider angiomas over the upper chest and clavicles. Her chest is clear and heart sounds are normal. Breast and pelvic exams deferred. The abdomen is grossly obese, but soft. Discrete organomegaly cannot be felt. Extremities show some erythema and 1+ edema. Neurologic is nonfocal with normal cranial nerves and no asterixis at this time. Her gait is normal. IMAGING: Ultrasound - no ascites, but diffuse fatty liver and hepatomegaly at 20 cm. LABORATORY DATA: CBC shows hemoglobin 10.7, MCV 100, platelets 119. IMPRESSION: Acute alcoholic hepatitis with hematologic effects of alcohol also. Although she has significant disease, she probably still has a fair amount of liver reserve, and that and her insight and willingness to speak are her assets. She will need social support. Right now, her sister is taking care of her children. She can verbalize that she knows she cannot drink anymore and hopefully, her willpower will match her insight. [id number]/[facility] #: [id number] ELPIDIO
[2017-03-02] MEDS: Omeprazole CAP* 20 MG PO SCH (05:27)
[2017-03-02 06:25] LABS: Albumin 2.4 g/dL (3.2-5.2); BUN/Creatinine Ratio 8.3 (8-20); Calcium 8.1 mg/dL (8.6-10.3); EGFR African American 144.7 (>60); EGFR Non-African American 112.5 (>60); Globulin 4.7 g/dL (2-4); Potassium 3.7 mmol/L (3.5-5.0); Total Bilirubin 7.8 mg/dL (0.2-1.0); Total Protein 7.1 g/dL (6.4-8.9)
[2017-03-02] MEDS ORDERED: Lactulose* 15 ML UDC PO SCH (09:00)
[2017-03-02] MEDS: Multivitamins/Minerals TAB PO SCH (09:46)
[2017-03-02] MEDS: Nicotine PATCH 14 MG/24 HR* PATCH TRANSDERM SCH (09:46)
[2017-03-02] MEDS: Spironolactone TAB* 25 MG PO SCH (09:47)
[2017-03-02] MEDS: Folic Acid TAB* 1 MG PO SCH (09:47)
[2017-03-02] MEDS: Thiamine TAB* 100 MG TAB PO SCH (09:47)
[2017-03-02] MEDS: Sertraline* 50 MG TAB PO SCH (09:47)
--- NOTE | 2017-03-02 12:01 | PN ---
Hospitalist Progress Note . HOSPITALIST DISCHARGE NOTE: See dc instructions and summary by me. Patient stable for dc dc instructions reviewed with the patient at the bedside. DC patient home today.
[2017-03-02 13:17] VITALS: BP 119/71
== END 2017-03-02 14:50 | disposition home or self-care (01) | DRG 773 ==
LOC: ED 13:36 → MED 17:16
PROVIDERS: ADMIT Internal Medicine; ATTEND Internal Medicine
DX: F10.239 Alcohol dependence with withdrawal, unspecified (principal); F11.90 Opioid use, unspecified, uncomplicated; E72.20 Disorder of urea cycle metabolism, unspecified; K70.40 Alcoholic hepatic failure without coma; K70.10 Alcoholic hepatitis without ascites; F32.9 Major depressive disorder, single episode, unspecified; M17.10 Unilateral primary osteoarthritis, unspecified knee; F41.9 Anxiety disorder, unspecified; F40.00 Agoraphobia, unspecified; F17.210 Nicotine dependence, cigarettes, uncomplicated; G89.29 Other chronic pain; Z80.52 Family history of malignant neoplasm of bladder; Z82.5 Family history of asthma and other chronic lower respiratory diseases; Z81.8 Family history of other mental and behavioral disorders
CPT/HCPCS: 36415; 71010; 76705; 80053; 80074; 81003; 81015; 82140; 83516; 83605; 84484; 84702; 85025; 85610; 85730; 87040; 99406; A9270-GY; J2405

== ENCOUNTER 2017-04-27 13:25 | Emergency (ER) | payer OTHER ==
[2017-04-27] MEDS ORDERED: Furosemide IV* 10 MG/ML VIAL (40 MG) IV SLOW PU ONE (14:29)
[2017-04-27 15:00] LABS: Hematocrit 29 % (35-47); Hemoglobin 9.6 g/dl (12.0-16.0); Mean Corpuscular HGB Conc 34 g/dl (31-36); Mean Corpuscular Hemoglobin 33 pg (27-31); Mean Corpuscular Volume 99 fL (80-97); Mean Platelet Volume 9 um3 (7.4-10.4); Red Blood Count 2.88 10^6/ul (4.0-5.4); Red Cell Distribution Width 14 % (10.5-15); White Blood Count 9.5 10^3/ul (3.5-10.8)
[2017-04-27 15:04] VITALS: BP 102/56
[2017-04-27 15:12] LABS: ALT 21 U/L (7-52); AST 44 U/L (13-39); Albumin 2.3 g/dL (3.2-5.2); Alkaline Phosphatase 117 U/L (34-104); Amylase 13 U/L (29-103); Anion Gap 7 mmol/L (2-11); BUN/Creatinine Ratio 6.3 (8-20); Blood Urea Nitrogen 4 mg/dL (6-24); CO2 Carbon Dioxide 26 mmol/L (22-32); Calcium 8.4 mg/dL (8.6-10.3); Chloride 103 mmol/L (101-111); Creatine Kinase 89 U/L (10-223); EGFR African American 136.7 (>60); EGFR Non-African American 106.3 (>60); Globulin 4.6 g/dL (2-4); Glucose 123 mg/dL (70-100); Lipase 16 U/L (11.0-82.0); Potassium 3.1 mmol/L (3.5-5.0); Sodium 136 mmol/L (133-145); Total Protein 6.9 g/dL (6.4-8.9)
[2017-04-27 15:36] LABS: Acetaminophen < 15 mcg/mL; Alcohol < 10 mg/dL (<10)
--- NOTE | 2017-04-27 22:26 | ED ---
kay Rocha Timothy, scribed for Anson Gorman MD on 04/27/17 at 1351 . Complex/Multi-Sys Presentation - HPI Summary HPI Summary: Gita Martinez is a 36 yo female presenting to [facility] with diffuse swelling and 6/10 tightness with some fatigue secondary to liver disease, ongoing and worsening since 04/13/17. She states that she has particularly bad swelling in her abdomen and legs. She was Dx with liver disease in February of this year. She notes dark urine presented, but then resolved in the past few weeks. She notes frequent epistaxis as well as chills and states she vomited once in the recent past. She notes that she has gotten her appetite back since her visit to the hospital in February. She states that she sleeps on her right side and is not orthopnic. She denies SOB with exertion. She denies any abd pain, THOMPSON, or fever. She states that she has a Hx of narcotic abuse mixed with tylenol. She states she used to drink EtOH often, but has not been drinking recently. She denies any use of water pills. She consulted her PCP, Dr. Robertson, this morning who recommended she present to [facility]. 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 - History Of Current Complaint Chief Complaint: EDGeneral Time Seen by Provider: 04/27/17 14:10 Hx Obtained From: Patient Onset/Duration: Gradual Onset, Lasting Weeks, Still Present Timing: Constant Severity Currently: Moderate Severity Initially: Moderate Character: Pressure - tightness Associated Signs And Symptoms: Positive: Edema - diffuse, secondary to liver disease, Vomiting, Other - diffuse tightness secondary to liver disease. Negative: Headache, SOB, Abdominal Pain - Allergies/Home Medications Allergies/Adverse Reactions: Allergies Allergy/AdvReac Type Severity Reaction Status Date / Time No Known Allergies Allergy Verified 02/28/17 11:21 Home Medications: Home Medications Buprenorphine TAB* [Subutex TAB*] 2 mg SL QAM 04/27/17 [History Confirmed ] PMH/Surg Hx/FS Hx/Imm Hx Endocrine/Hematology History: Reports: Hx Diabetes - Gestational Diabetes Denies: Hx Thyroid Disease Cardiovascular History: Denies: Hx Hypertension Respiratory History: Denies: Hx Asthma, Hx Chronic Obstructive Pulmonary Disease (COPD) GI History: Denies: Hx Ulcer Sensory History: Denies: Hx Contacts or Glasses, Hx Hearing Aid Opthamlomology History: Denies: Hx Contacts or Glasses Psychiatric History: Reports: Hx Anxiety, Hx Depression Denies: Hx Eating Disorder, Hx of Violent Episodes Against Others - Surgical History Surgery Procedure, Year, and Place: KIDNEY STENTS, C SECTION Infectious Disease History: Reports: Hx Shingles - Age 71` Denies: Hx Hepatitis, Hx Human Immunodeficiency Virus (HIV), Traveled Outside the [place] in Last 30 Days - Family History Known Family History: Positive: Hypertension, Diabetes, Other - depression, no liver disease Negative: Cardiac Disease Family History: R & n/C - Social History Alcohol Use: Daily Alcohol Amount: 3 drinks per day Hx Substance Use: No Substance Use Type: Reports: None, Prescribed Substance Use Comment - Amount & Last Used: suboxone Hx Tobacco Use: Yes Smoking Status (MU): Light Every Day Tobacco Smoker Type: Cigarettes Amount Used/How Often: 1/2ppd Review of Systems Positive: Chills. Negative: Fever Eyes: Negative ENT: Negative Cardiovascular: Negative Respiratory: Negative Negative: Shortness Of Breath Positive: Vomiting. Negative: Abdominal Pain Positive: other - dark urine, resolved Positive: Edema - diffuse, diffuse tightness Skin: Negative Neurological: Negative Negative: Headache Psychological: Normal All Other Systems Reviewed And Are Negative: Yes Physical Exam - Summary Physical Exam Summary: The patient is obese in no mild distress and in no acute pain. The skin is warm and dry and is pale. There is some decreased skin turgor. HEENT: The head is normocephalic and atraumatic. The pupils are equal and reactive. There are bilateral jaundiced sclera. Nares are patent and without drainage. Mouth reveals dry oral mucous membranes and the throat is without erythema and exudate. She is jaundiced under her tongue. There is no rhinorrhea The external ears are intact. The ear canals are patent and without drainage. The tympanic membranes are intact. Neck is supple with full range of motion and non-tender. There are no carotid bruits. There is neck vein distension. Respiratory: Chest is non-tender. Lungs are clear to auscultation and breath sounds are symmetrical and equal. There is no rales, rhonchi, or wheezing. Cardiovascular: Heart is regular rate and rhythm. There is no murmur or rub auscultated. There is no peripheral edema and pulses are symmetrical and equal. Abdomen: The abdomen is soft, obese and non-tender. The abd is full of ascites and there seems to be a fluid shift. There is pitting edema in the abd wall. There are normal bowel sounds heard in all four quadrants and there is no organomegaly palpated. There is no CVA tenderness. Musculoskeletal: There is no back pain noted. Extremities are non-tender with full range of motion. There is good capillary refill and pulses. There is pitting edema and erythema all the way up the bilateral lower extremities, but no edema is noted in the upper extremities. Neurological: Patient is alert and oriented to person, place and time. The patient has symmetrical motor strength in all four extremities. Cranial nerves are grossly intact. Deep tendon reflexes are symmetrical and equal in all four extremities. Psychiatric: The patient has an appropriate affect and does not exhibit any anxiety or depression. Triage Information Reviewed: Yes Vital Signs On Initial Exam: Initial Vitals Temp Pulse Resp BP Pulse Ox 98.9 F 99 18 125/56 98 04/27/17 13:26 04/27/17 13:26 04/27/17 13:26 04/27/17 13:26 04/27/17 13:26 Vital Signs Reviewed: Yes Diagnostics - Vital Signs Vital Signs Temp Pulse Resp BP Pulse Ox 04/27/17 13:26 98.9 F 99 18 125/56 98 - Laboratory Lab Results: Lab Results 04/27/17 04/27/17 04/27/17 Range/Units 14:44 14:44 14:44 WBC 9.5 (3.5-10.8) 10^3/ul RBC 2.88 L (4.0-5.4) 10^6/ul Hgb 9.6 L (12.0-16.0) g/dl Hct 29 L (35-47) % MCV 99 H (80-97) fL MCH 33 H (27-31) pg MCHC 34 (31-36) g/dl RDW 14 (10.5-15) % Plt Count 114 L (150-450) 10^3/ul MPV 9 (7.4-10.4) um3 Neut % (Auto) 71.7 (38-83) % Lymph % (Auto) 19.5 L (25-47) % [place] % (Auto) 6.5 (1-9) % Eos % (Auto) 1.7 (0-6) % Baso % (Auto) 0.6 (0-2) % Absolute Neuts (auto) 6.8 (1.5-7.7) 10^3/ul Absolute Lymphs (auto) 1.8 (1.0-4.8) 10^3/ul Absolute Monos (auto) 0.6 (0-0.8) 10^3/ul Absolute Eos (auto) 0.2 (0-0.6) 10^3/ul Absolute Basos (auto) 0.1 (0-0.2) 10^3/ul Absolute Nucleated RBC 0 10^3/ul Nucleated RBC % 0 INR (Anticoag Therapy) (0.89-1.11) APTT (26.0-36.3) seconds Sodium 136 (133-145) mmol/L Potassium 3.1 L (3.5-5.0) mmol/L Chloride 103 (101-111) mmol/L Carbon Dioxide 26 (22-32) mmol/L Anion Gap 7 (2-11) mmol/L BUN 4 L (6-24) mg/dL Creatinine 0.63 (0.51-0.95) mg/dL Est GFR ( Amer) 136.7 (>60) Est GFR (Non-Af Amer) 106.3 (>60) BUN/Creatinine Ratio 6.3 L (8-20) Glucose 123 H (70-100) mg/dL Lactic Acid (0.5-2.0) mmol/L Calcium 8.4 L (8.6-10.3) mg/dL Total Bilirubin 5.70 H (0.2-1.0) mg/dL AST 44 H (13-39) U/L ALT 21 (7-52) U/L Alkaline Phosphatase 117 H (34-104) U/L Ammonia 76 H (16-53) mol/L Total Creatine Kinase 89 (10-223) U/L C-Reactive Protein 15.00 H (< 5.00) mg/L Total Protein 6.9 (6.4-8.9) g/dL Albumin 2.3 L (3.2-5.2) g/dL Globulin 4.6 H (2-4) g/dL Albumin/Globulin Ratio 0.5 L (1-3) Amylase 13 L (29-103) U/L Lipase 16 (11.0-82.0) U/L Acetaminophen < 15 mcg/mL Serum Alcohol < 10 (<10) mg/dL 04/27/17 04/27/17 Range/Units 14:44 14:44 WBC (3.5-10.8) 10^3/ul RBC (4.0-5.4) 10^6/ul Hgb (12.0-16.0) g/dl Hct (35-47) % MCV (80-97) fL MCH (27-31) pg MCHC (31-36) g/dl RDW (10.5-15) % Plt Count (150-450) 10^3/ul MPV (7.4-10.4) um3 Neut % (Auto) (38-83) % Lymph % (Auto) (25-47) % [place] % (Auto) (1-9) % Eos % (Auto) (0-6) % Baso % (Auto) (0-2) % Absolute Neuts (auto) (1.5-7.7) 10^3/ul Absolute Lymphs (auto) (1.0-4.8) 10^3/ul Absolute Monos (auto) (0-0.8) 10^3/ul Absolute Eos (auto) (0-0.6) 10^3/ul Absolute Basos (auto) (0-0.2) 10^3/ul Absolute Nucleated RBC 10^3/ul Nucleated RBC % INR (Anticoag Therapy) 1.65 H (0.89-1.11) APTT 39.0 H (26.0-36.3) seconds Sodium (133-145) mmol/L Potassium (3.5-5.0) mmol/L Chloride (101-111) mmol/L Carbon Dioxide (22-32) mmol/L Anion Gap (2-11) mmol/L BUN (6-24) mg/dL Creatinine (0.51-0.95) mg/dL Est GFR ( Amer) (>60) Est GFR (Non-Af Amer) (>60) BUN/Creatinine Ratio (8-20) Glucose (70-100) mg/dL Lactic Acid 2.3 H* (0.5-2.0) mmol/L Calcium (8.6-10.3) mg/dL Total Bilirubin (0.2-1.0) mg/dL AST (13-39) U/L ALT (7-52) U/L Alkaline Phosphatase (34-104) U/L Ammonia (16-53) mol/L Total Creatine Kinase (10-223) U/L C-Reactive Protein (< 5.00) mg/L Total Protein (6.4-8.9) g/dL Albumin (3.2-5.2) g/dL Globulin (2-4) g/dL Albumin/Globulin Ratio (1-3) Amylase (29-103) U/L Lipase (11.0-82.0) U/L Acetaminophen mcg/mL Serum Alcohol (<10) mg/dL Result Diagrams: 04/27/17 14:44 04/27/17 14:44 Lab Statement: Any lab studies that have been ordered have been reviewed, and results considered in the medical decision making process. Re-Evaluation - Re-Evaluation First Eval Re-Evaluation Time: 15:58 Change: Unchanged Comment: Reviewed lab results with Pt. Pt had her questions answered to her satisfaction. Complex Multi-Symp Course/Dx Assessment/Plan: Gita Martinez is a 36 yo female presenting to [facility] with 6/ 10 tightness and diffuse swelling secondary to liver disease with dark urine, epistaxis, chills, and vomiting in the past few weeks. Her medication list is reviewed this visit. Pt's previous MHx was reviewed, notably her bilirubin levels which appeared to have stabilized. In the ED course she received Lasix. Pt was counseled to take her Potassium as prescribed. After clinical examination and review of her lab studies, she will be discharged with hepatic failure with abscites and hypokalemia with appropraite instructions. - Diagnoses Differential Diagnoses/HQI/PQRI: Metabolic Abnormality, Other - ascites, hepatic encephalopathy, anasarca Provider Diagnoses: hepatic failure with ascites, Hypokalemia Discharge - Discharge Plan Condition: Stable Disposition: HOME Prescriptions: Furosemide TAB* [Lasix TAB*] 40 mg PO DAILY #30 tab Lactulose* 30 ml PO BID #1 bottle Spironolactone [Aldactone 100 MG-] 100 mg PO DAILY #30 tab Patient Education Materials: Hypokalemia (ED), Ascites (ED) Referrals: Patricio Robertson MD [Primary Care Provider] - 2 Days Kulwinder Lechuga MD [Medical Doctor] - 1 Day Additional Instructions: Please call Dr. Lechuga's office tomorrow morning and inform them that you were seen by the emergency department and ask if you can schedule your appointment with them sooner. Please take your potassium as prescribed. Return to the emergency department with any new or recurring symptoms. The documentation as recorded by the kay levin Timothy accurately reflects the service I personally performed and the decisions made by me, Anson Gorman MD.
== END 2017-04-27 16:29 | disposition home or self-care (01) ==
LOC: ED 13:25
DX: K72.90 Hepatic failure, unspecified without coma (principal); R18.8 Other ascites; E87.6 Hypokalemia; R11.10 Vomiting, unspecified; F41.9 Anxiety disorder, unspecified; F32.9 Major depressive disorder, single episode, unspecified; F17.210 Nicotine dependence, cigarettes, uncomplicated
CPT/HCPCS: 36415; 80053; 80320; 80329; 82140; 82150; 82550; 83605; 83690; 85025; 85610; 85730; 86140; 96374; 99284; G0480; J1940

== ENCOUNTER 2017-05-02 22:19 | Observation (INO) | payer OTHER ==
[2017-05-03 00:47] LABS: Hematocrit 29 % (35-47); Hemoglobin 9.4 g/dl (12.0-16.0); Mean Corpuscular HGB Conc 33 g/dl (31-36); Mean Corpuscular Hemoglobin 33 pg (27-31); Mean Corpuscular Volume 99 fL (80-97); Mean Platelet Volume 9 um3 (7.4-10.4); Red Blood Count 2.88 10^6/ul (4.0-5.4); Red Cell Distribution Width 14 % (10.5-15); White Blood Count 12.5 10^3/ul (3.5-10.8)
[2017-05-03 00:48] LABS: Urine Bacteria 3+ (Absent); Urine Bilirubin 1+ (Negative); Urine Glucose Negative (Negative); Urine Nitrite Positive (Negative)
[2017-05-03 01:02] LABS: Albumin 2.5 g/dL (3.2-5.2); BUN/Creatinine Ratio 5.8 (8-20); Calcium 8.6 mg/dL (8.6-10.3); EGFR African American 123.1 (>60); EGFR Non-African American 95.7 (>60); Globulin 4.8 g/dL (2-4); Magnesium 1.7 mg/dL (1.9-2.7); Total Bilirubin 6.2 mg/dL (0.2-1.0); Total Protein 7.3 g/dL (6.4-8.9)
[2017-05-03] MEDS ORDERED: Sulfamethox/Trimethoprim DS 800/160* TAB PO ONE (01:04)
[2017-05-03 01:09] LABS: Potassium 2.6 mmol/L (3.5-5.0)
[2017-05-03] MEDS ORDERED: Potassium Chloride LIQUID* 20 MEQ PACKET PO ONE (01:10)
--- NOTE | 2017-05-03 01:12 | ED ---
I, Rosendo,Alicia, scribed for Hugo Napier MD on 05/03/17 at 0030 . Complex/Multi-Sys Presentation - HPI Summary HPI Summary: This 36 y/o female presents to ED from her primary care office for low level of potassium. Pt reports change in urine color. Pt reports being previously evaluated for fluid build up 5 days ago. She is noted with distended abd at time of initial evaluation. PMHx includes unspecified liver disease, gestational DM, kidney stone, anxiety, and Suboxone treatment. - History Of Current Complaint Chief Complaint: EDGeneral Time Seen by Provider: 05/03/17 00:18 Hx Obtained From: Patient, Medical Records Onset/Duration: Gradual Onset Timing: Constant Associated Signs And Symptoms: Positive: Other - Allergies/Home Medications Allergies/Adverse Reactions: Allergies Allergy/AdvReac Type Severity Reaction Status Date / Time No Known Allergies Allergy Verified 02/28/17 11:21 PMH/Surg Hx/FS Hx/Imm Hx Endocrine/Hematology History: Reports: Hx Diabetes - Gestational Diabetes Denies: Hx Thyroid Disease Cardiovascular History: Denies: Hx Hypertension Respiratory History: Denies: Hx Asthma, Hx Chronic Obstructive Pulmonary Disease (COPD) GI History: Denies: Hx Ulcer Sensory History: Denies: Hx Contacts or Glasses, Hx Hearing Aid Opthamlomology History: Denies: Hx Contacts or Glasses Psychiatric History: Reports: Hx Anxiety, Hx Depression Denies: Hx Eating Disorder, Hx of Violent Episodes Against Others - Surgical History Surgery Procedure, Year, and Place: KIDNEY STENTS, C SECTION Infectious Disease History: Reports: Hx Shingles - Age 71` Denies: Hx Hepatitis, Hx Human Immunodeficiency Virus (HIV), Traveled Outside the [place] in Last 30 Days - Family History Known Family History: Positive: Hypertension, Diabetes, Other - depression, no liver disease Negative: Cardiac Disease - Social History Alcohol Use: Daily Alcohol Amount: 3 drinks per day Hx Substance Use: No Substance Use Type: Reports: None, Prescribed Substance Use Comment - Amount & Last Used: suboxone Hx Tobacco Use: Yes Smoking Status (MU): Light Every Day Tobacco Smoker Type: Cigarettes Amount Used/How Often: 1/2ppd Review of Systems Negative: Fever Positive: Other - abd distended Positive: other - Low K+ All Other Systems Reviewed And Are Negative: Yes Physical Exam Triage Information Reviewed: Yes Vital Signs On Initial Exam: Initial Vitals Temp Pulse Resp BP Pulse Ox 98.6 F 102 18 124/54 95 05/02/17 22:25 05/02/17 22:25 05/02/17 22:25 05/02/17 22:25 05/02/17 22:25 Vital Signs Reviewed: Yes Appearance: Positive: No Pain Distress, Ill-Appearing Skin: Positive: Warm, Pale Head/Face: Positive: Normal Head/Face Inspection Eyes: Positive: ADDI ENT: Positive: Hearing grossly normal Neck: Positive: Supple Respiratory/Lung Sounds: Positive: Decreased Breath Sounds - at bases Cardiovascular: Positive: RRR Abdomen Description: Positive: Distended, Other: - marked ascites Musculoskeletal: Positive: Strength/ROM Intact Neurological: Positive: Alert, Oriented to Person Place, Time, Normal Gait Diagnostics - Vital Signs Vital Signs Temp Pulse Resp BP Pulse Ox 05/02/17 22:25 98.6 F 102 18 124/54 95 - Laboratory Lab Results: Lab Results 05/03/17 05/03/17 05/03/17 Range/Units 00:24 00:36 00:36 WBC 12.5 H (3.5-10.8) 10^3/ul RBC 2.88 L (4.0-5.4) 10^6/ul Hgb 9.4 L (12.0-16.0) g/dl Hct 29 L (35-47) % MCV 99 H (80-97) fL MCH 33 H (27-31) pg MCHC 33 (31-36) g/dl RDW 14 (10.5-15) % Plt Count 125 L (150-450) 10^3/ul MPV 9 (7.4-10.4) um3 Neut % (Auto) 67.4 (38-83) % Lymph % (Auto) 22.8 L (25-47) % [place] % (Auto) 7.5 (1-9) % Eos % (Auto) 2.0 (0-6) % Baso % (Auto) 0.3 (0-2) % Absolute Neuts (auto) 8.5 H (1.5-7.7) 10^3/ul Absolute Lymphs (auto) 2.9 (1.0-4.8) 10^3/ul Absolute Monos (auto) 0.9 H (0-0.8) 10^3/ul Absolute Eos (auto) 0.3 (0-0.6) 10^3/ul Absolute Basos (auto) 0 (0-0.2) 10^3/ul Absolute Nucleated RBC 0 10^3/ul Nucleated RBC % 0 Sodium 135 (133-145) mmol/L Potassium 2.6 L* (3.5-5.0) mmol/L Chloride 100 L (101-111) mmol/L Carbon Dioxide 28 (22-32) mmol/L Anion Gap 7 (2-11) mmol/L BUN 4 L (6-24) mg/dL Creatinine 0.69 (0.51-0.95) mg/dL Est GFR ( Amer) 123.1 (>60) Est GFR (Non-Af Amer) 95.7 (>60) BUN/Creatinine Ratio 5.8 L (8-20) Glucose 102 H (70-100) mg/dL Lactic Acid (0.5-2.0) mmol/L Calcium 8.6 (8.6-10.3) mg/dL Magnesium 1.7 L (1.9-2.7) mg/dL Total Bilirubin 6.20 H (0.2-1.0) mg/dL AST 47 H (13-39) U/L ALT 19 (7-52) U/L Alkaline Phosphatase 108 H (34-104) U/L Total Protein 7.3 (6.4-8.9) g/dL Albumin 2.5 L (3.2-5.2) g/dL Globulin 4.8 H (2-4) g/dL Albumin/Globulin Ratio 0.5 L (1-3) Urine Color Sue Urine Appearance Cloudy Urine pH 6.0 (5-9) Ur Specific [place] 1.010 (1.010-1.030) Urine Protein 2+(100 mg/dl) H (Negative) Urine Ketones Negative (Negative) Urine Blood 3+ H (Negative) Urine Nitrate Positive H (Negative) Urine Bilirubin 1+ H (Negative) Urine Urobilinogen Positive H (Negative) Ur Leukocyte Esterase 3+ H (Negative) Urine WBC (Auto) 3+(>20/hpf) H (Absent) Urine RBC (Auto) 3+(>10/hpf) H (Absent) Ur Squamous Epith Cells Present H (Absent) Urine Bacteria 3+ H (Absent) Urine Glucose Negative (Negative) 05/03/17 Range/Units 00:36 WBC (3.5-10.8) 10^3/ul RBC (4.0-5.4) 10^6/ul Hgb (12.0-16.0) g/dl Hct (35-47) % MCV (80-97) fL MCH (27-31) pg MCHC (31-36) g/dl RDW (10.5-15) % Plt Count (150-450) 10^3/ul MPV (7.4-10.4) um3 Neut % (Auto) (38-83) % Lymph % (Auto) (25-47) % [place] % (Auto) (1-9) % Eos % (Auto) (0-6) % Baso % (Auto) (0-2) % Absolute Neuts (auto) (1.5-7.7) 10^3/ul Absolute Lymphs (auto) (1.0-4.8) 10^3/ul Absolute Monos (auto) (0-0.8) 10^3/ul Absolute Eos (auto) (0-0.6) 10^3/ul Absolute Basos (auto) (0-0.2) 10^3/ul Absolute Nucleated RBC 10^3/ul Nucleated RBC % Sodium (133-145) mmol/L Potassium (3.5-5.0) mmol/L Chloride (101-111) mmol/L Carbon Dioxide (22-32) mmol/L Anion Gap (2-11) mmol/L BUN (6-24) mg/dL Creatinine (0.51-0.95) mg/dL Est GFR ( Amer) (>60) Est GFR (Non-Af Amer) (>60) BUN/Creatinine Ratio (8-20) Glucose (70-100) mg/dL Lactic Acid 2.7 H* (0.5-2.0) mmol/L Calcium (8.6-10.3) mg/dL Magnesium (1.9-2.7) mg/dL Total Bilirubin (0.2-1.0) mg/dL AST (13-39) U/L ALT (7-52) U/L Alkaline Phosphatase (34-104) U/L Total Protein (6.4-8.9) g/dL Albumin (3.2-5.2) g/dL Globulin (2-4) g/dL Albumin/Globulin Ratio (1-3) Urine Color Urine Appearance Urine pH (5-9) Ur Specific [place] (1.010-1.030) Urine Protein (Negative) Urine Ketones (Negative) Urine Blood (Negative) Urine Nitrate (Negative) Urine Bilirubin (Negative) Urine Urobilinogen (Negative) Ur Leukocyte Esterase (Negative) Urine WBC (Auto) (Absent) Urine RBC (Auto) (Absent) Ur Squamous Epith Cells (Absent) Urine Bacteria (Absent) Urine Glucose (Negative) Result Diagrams: 05/03/17 00:36 05/03/17 05:10 Lab Statement: Any lab studies that have been ordered have been reviewed, and results considered in the medical decision making process. Re-Evaluation - Re-Evaluation First Eval Re-Evaluation Time: 05:38 Change: Unchanged - pottasium 2.8 from 2.6 will admit Comment: MD in room to update pt on repeat BMP result and plan of care involving possible admission Complex Multi-Symp Course/Dx Assessment/Plan: This 36 y/o female presents to ED from MD office for low potassium level. Pt reports recent fluid build up and PMHx of unspecified liver disease. Blood work is drawn and is noted with depressed potassium level of 2.6 , Lactic acid of 2.7, elevated LFT, and elevated WBC of 12.5. UA is noted with 3 + WBC, 3+ RBC, 3+ leuk, 3+ bacteria, 1+ bilirubin, and positive squamous cells. Pt is given KCl IVP and bactrim. Repeat BMP is drawn at 0510 AM and noted with slightly improved potassium of 2.8. Physical exam findings and repeat BMP were discussed with Dr. Hoffman, who accept pt's admission. - Diagnoses Provider Diagnoses: Hypokalemia - Physician Notifications Discussed Care Of Patient With: Ezra Hoffman Time Discussed With Above Provider: 05:37 Instructed by Provider To: Admit As Inpatient Discharge - Discharge Plan Condition: Fair Disposition: ADMITTED TO [facility] The documentation as recorded by the Rosendo levin Soohyun accurately reflects the service I personally performed and the decisions made by me, Hugo Napier MD.
[2017-05-03] MEDS: KCL 10 MEQ/50 ML IVPREMIX* 10 MEQ/50 ML BAG IV SCH ×3 (01:52→04:00)
[2017-05-03 05:32] LABS: Calcium 8.4 mg/dL (8.6-10.3); EGFR African American 178.5 (>60); EGFR Non-African American 138.8 (>60); Potassium 2.8 mmol/L (3.5-5.0)
[2017-05-03] MEDS ORDERED: KCL 20 MEQ/100 ML IVPREMIX* 20 MEQ/100 ML BAG IV ONE (05:39)
[2017-05-03] MEDS ORDERED: Acetaminophen TAB* 325 MG PO PRN (05:41)
[2017-05-03] MEDS ORDERED: Albuterol 2.5 MG/3 ML NEB.SOL* (0.083%) INH PRN ×2 (05:42→05:45)
[2017-05-03] MEDS ORDERED: Ondansetron INJ* 2 MG/ML VIAL IV PRN (05:42)
[2017-05-03] MEDS ORDERED: Melatonin (NF) 3 MG TAB PO PRN (05:42)
[2017-05-03] MEDS: Omeprazole CAP* 20 MG PO SCH (06:09)
[2017-05-03] MEDS: Potassium Chlor TAB* 20 MEQ TAB.ER PO SCH ×2 (06:09→08:33)
--- NOTE | 2017-05-03 06:14 | HP ---
H&P (Free Text) History and Physical: PCP: Robert Robertson MD Date/Time of Evaluation: 05/03/2017 0600 CC: hypoKalemia HPI: Mrs Martinez is a 36YO female HX liver disease uncertain if it is autoimmune vs alcoholic who was seen by her PCP yesterday where labwork revealed a K+ of 2.6 yielding a recommendation to present [place] [facility]. She denies new symptoms or complaints, specifically palpitations, chest discomfort, light-headedness, or SOB. She was given 40mEq K+Cl- PO and another 30mEq IV. Recheck K+ was 2.8 prompting request for admission. PMedHx hepatic disease currently being worked up as possible alcoholic vs autoimmune : has not follow up with Sabra Lechuga MD GI macrocytic anemia HX alcohol abuse in remission HX hepatic steatosis in x2 OA w/ chronic pain depression agoraphobia anxiety Ambulatory Orders Nursing to reconcile. Sertraline* [Zoloft*] 50 mg PO DAILY #30 tab 05/03/16 Folic Acid TAB* [Folvite TAB*] 1 mg PO DAILY #30 tab 03/02/17 Multivitamins/Minerals TAB* [Theragran/minerals TAB*] 1 tab PO DAILY tab Thiamine TAB* [Vitamin B-1 TAB 100 MG*] 100 mg PO DAILY #30 tab 03/02/17 Buprenorphine TAB* [Subutex TAB*] 2 mg SL QAM 04/27/17 Furosemide TAB* [Lasix TAB*] 40 mg PO DAILY #30 tab 04/27/17 Lactulose* 30 ml PO BID #1 bottle 04/27/17 Spironolactone [Aldactone 100 MG-] 100 mg PO DAILY #30 tab 04/27/17 Allergies No Known Allergies Allergy (Verified 02/28/17 11:21) SocHx: 1/2PPD cigarettes, no current alcohol but former daily drinker, denies recreational drugs; lives with her & 2 children; full code status FamHx: Mother passed in her 60s 2nd bladder CA. Father passed of COPD. ROS: as above, otherwise reviewed and all were negative Constitutional: NAD, normally developed, well-nourished obese white female vitals: Vital Signs Temp 36.6 C 05/03/17 05:56 Pulse 97 05/03/17 05:56 Resp 19 05/03/17 05:56 BP 127/47 05/03/17 05:56 Pulse Ox 89 05/03/17 05:30 Intake & Output 05/02/17 05/02/17 05/03/17 11:59 23:59 11:59 Intake Total 150 Balance 150 Weight 115.212 kg Intake: IV Fluids 150 HEENM: atraumatic; sclera/conjunctiva: icteric/clear; hearing: clinically intact ; oropharynx: clear, mucosa moist Neck: soft tissue: non-tender; thyroid: normal Pulmonary: clear to auscultation bilaterally, good aeration, no accessory muscle use CV: RR/RR, normal S1S2, no carotid bruit, no jugular venous distention, 2+ B DP/ PT, 2+ BLE edema Abdominal: soft, non-distended, protuberant, non-tender, no rebound/guarding/ rigidity, normoactive bowel sounds, no hepatosplenomegaly or masses, no costovertebral angle tenderness Musculoskeletal: general: grossly intact; gait: stable, uses cane Integumental: mildly jaundiced Psychiatric orientation: AA&O to PPS affect: calm mood: cooperative eye contact: good content: reliable responses: timely insight: fair to good Testing: Lab Results 05/03/17 05/03/17 05/03/17 Range/Units 00:24 00:36 00:36 WBC 12.5 H (3.5-10.8) 10^3/ul RBC 2.88 L (4.0-5.4) 10^6/ul Hgb 9.4 L (12.0-16.0) g/dl Hct 29 L (35-47) % MCV 99 H (80-97) fL MCH 33 H (27-31) pg MCHC 33 (31-36) g/dl RDW 14 (10.5-15) % Plt Count 125 L (150-450) 10^3/ul MPV 9 (7.4-10.4) um3 Neut % (Auto) 67.4 (38-83) % Lymph % (Auto) 22.8 L (25-47) % [place] % (Auto) 7.5 (1-9) % Eos % (Auto) 2.0 (0-6) % Baso % (Auto) 0.3 (0-2) % Absolute Neuts (auto) 8.5 H (1.5-7.7) 10^3/ul Absolute Lymphs (auto) 2.9 (1.0-4.8) 10^3/ul Absolute Monos (auto) 0.9 H (0-0.8) 10^3/ul Absolute Eos (auto) 0.3 (0-0.6) 10^3/ul Absolute Basos (auto) 0 (0-0.2) 10^3/ul Absolute Nucleated RBC 0 10^3/ul Nucleated RBC % 0 Sodium 135 (133-145) mmol/L Potassium 2.6 L* (3.5-5.0) mmol/L Chloride 100 L (101-111) mmol/L Carbon Dioxide 28 (22-32) mmol/L Anion Gap 7 (2-11) mmol/L BUN 4 L (6-24) mg/dL Creatinine 0.69 (0.51-0.95) mg/dL Est GFR ( Amer) 123.1 (>60) Est GFR (Non-Af Amer) 95.7 (>60) BUN/Creatinine Ratio 5.8 L (8-20) Glucose 102 H (70-100) mg/dL Lactic Acid (0.5-2.0) mmol/L Calcium 8.6 (8.6-10.3) mg/dL Magnesium 1.7 L (1.9-2.7) mg/dL Total Bilirubin 6.20 H (0.2-1.0) mg/dL AST 47 H (13-39) U/L ALT 19 (7-52) U/L Alkaline Phosphatase 108 H (34-104) U/L Total Protein 7.3 (6.4-8.9) g/dL Albumin 2.5 L (3.2-5.2) g/dL Globulin 4.8 H (2-4) g/dL Albumin/Globulin Ratio 0.5 L (1-3) Urine Color Sue Urine Appearance Cloudy Urine pH 6.0 (5-9) Ur Specific [place] 1.010 (1.010-1.030) Urine Protein 2+(100 mg/dl) H (Negative) Urine Ketones Negative (Negative) Urine Blood 3+ H (Negative) Urine Nitrate Positive H (Negative) Urine Bilirubin 1+ H (Negative) Urine Urobilinogen Positive H (Negative) Ur Leukocyte Esterase 3+ H (Negative) Urine WBC (Auto) 3+(>20/hpf) H (Absent) Urine RBC (Auto) 3+(>10/hpf) H (Absent) Ur Squamous Epith Cells Present H (Absent) Urine Bacteria 3+ H (Absent) Urine Glucose Negative (Negative) 05/03/17 05/03/17 Range/Units 00:36 05:10 WBC (3.5-10.8) 10^3/ul RBC (4.0-5.4) 10^6/ul Hgb (12.0-16.0) g/dl Hct (35-47) % MCV (80-97) fL MCH (27-31) pg MCHC (31-36) g/dl RDW (10.5-15) % Plt Count (150-450) 10^3/ul MPV (7.4-10.4) um3 Neut % (Auto) (38-83) % Lymph % (Auto) (25-47) % [place] % (Auto) (1-9) % Eos % (Auto) (0-6) % Baso % (Auto) (0-2) % Absolute Neuts (auto) (1.5-7.7) 10^3/ul Absolute Lymphs (auto) (1.0-4.8) 10^3/ul Absolute Monos (auto) (0-0.8) 10^3/ul Absolute Eos (auto) (0-0.6) 10^3/ul Absolute Basos (auto) (0-0.2) 10^3/ul Absolute Nucleated RBC 10^3/ul Nucleated RBC % Sodium 137 (133-145) mmol/L Potassium 2.8 L (3.5-5.0) mmol/L Chloride 103 (101-111) mmol/L Carbon Dioxide 28 (22-32) mmol/L Anion Gap 6 (2-11) mmol/L BUN 3 L (6-24) mg/dL Creatinine 0.50 L (0.51-0.95) mg/dL Est GFR ( Amer) 178.5 (>60) Est GFR (Non-Af Amer) 138.8 (>60) BUN/Creatinine Ratio 6.0 L (8-20) Glucose 91 (70-100) mg/dL Lactic Acid 2.7 H* (0.5-2.0) mmol/L Calcium 8.4 L (8.6-10.3) mg/dL Magnesium (1.9-2.7) mg/dL Total Bilirubin (0.2-1.0) mg/dL AST (13-39) U/L ALT (7-52) U/L Alkaline Phosphatase (34-104) U/L Total Protein (6.4-8.9) g/dL Albumin (3.2-5.2) g/dL Globulin (2-4) g/dL Albumin/Globulin Ratio (1-3) Urine Color Urine Appearance Urine pH (5-9) Ur Specific [place] (1.010-1.030) Urine Protein (Negative) Urine Ketones (Negative) Urine Blood (Negative) Urine Nitrate (Negative) Urine Bilirubin (Negative) Urine Urobilinogen (Negative) Ur Leukocyte Esterase (Negative) Urine WBC (Auto) (Absent) Urine RBC (Auto) (Absent) Ur Squamous Epith Cells (Absent) Urine Bacteria (Absent) Urine Glucose (Negative) ECG, personally reviewed: NSR rate 90, no ischemia Impression: 36F HX liver disease presenting with hypoKalemia & hypoMagnesemia DIAGNOSIS & PLAN Primary hypoKalemia & hypoMagnesemia : replace & recheck Secondary hepatic disease : continue outpatient f/u w/ PCP : arrange outpatient f/u w/ P MD Ankush GI chronic pain : continue buprenorphine once reconciled Admission Rational: observation for electrolyte imbalance DVTp: SCDs Code Status: full
[2017-05-03 13:10] LABS: BUN/Creatinine Ratio 5.5 (8-20); Calcium 8.4 mg/dL (8.6-10.3); EGFR African American 159.9 (>60); EGFR Non-African American 124.4 (>60); Magnesium 2.1 mg/dL (1.9-2.7); Potassium 3.5 mmol/L (3.5-5.0)
[2017-05-03] MEDS ORDERED: cefTRIAXone VIAL(*) 1,000 MG in NS 0.9% 50 ML* 50 ML IVPB SCH (15:00)
--- NOTE | 2017-05-03 17:08 | PN ---
Subjective Date of Service: 05/03/17 Interval History: Patient seen and examined at bedside. Pt states that she is feeling well. Denies fever, chills, shortness of breath, chest discomfort, N/V/D. Pt states that she usually has frequent stools, due to the lactulose that she takes. Pt denies urinary symptoms with the exception of feeling like she didn't empty her bladder after urination. Pt states that she has noticed abdominal swelling and LE edema and has been following with her PCP to assist with medication adjustments for this. Tele: Sinus tachycardia, rate 90-100's. Family History: Unchanged from Admission Social History: Unchanged from Admission Past Medical History: Unchanged from Admission Objective Active Medications: Acetaminophen (Tylenol Tab*) 325 mg PO Q6H PRN Reason: FEVER/PAIN Albuterol (Ventolin 2.5 Mg/3 Ml Neb.Nora*) 2.5 mg INH Q2H PRN Reason: SOB/ WHEEZING Ceftriaxone Sodium 1,000 mg/ (Sodium Chloride) 50 mls @ 200 mls/hr IVPB Q24H IRA Melatonin (Melatonin (Nf)) 3 mg PO BEDTIME PRN; Protocol Reason: Sleep Omeprazole (Prilosec Cap*) 20 mg PO DAILY@0600 IRA Ondansetron HCl (Zofran Inj*) 4 mg IV Q6H PRN Reason: NAUSEA Vital Signs 05/03/17 05/03/17 05/03/17 05:56 06:00 06:10 Temperature 98 F 98.3 F Pulse Rate 97 97 93 Respiratory 19 26 18 Rate Blood Pressure 127/47 133/56 125/54 (mmHg) O2 Sat by Pulse 89 93 Oximetry 05/03/17 05/03/17 05/03/17 06:20 09:20 11:04 Temperature Pulse Rate 94 99 Respiratory 22 16 16 Rate Blood Pressure (mmHg) O2 Sat by Pulse 91 92 Oximetry 05/03/17 05/03/17 11:39 15:17 Temperature 98.7 F 98.4 F Pulse Rate 96 100 Respiratory 16 16 Rate Blood Pressure 92/36 126/56 (mmHg) O2 Sat by Pulse 90 88 Oximetry Oxygen Devices in Use Now: Nasal Cannula - 2L Appearance: NAD, sitting up in bed Eyes: - - Slight scleral icterus Ears/Nose/Mouth/Throat: Mucous Membranes Moist Respiratory: Symmetrical Chest Expansion and Respiratory Effort, Clear to Auscultation Cardiovascular: NL Sounds; No Murmurs; No JVD, RRR Abdominal: NL Sounds; No Tenderness; No Distention, - - + fluid wave Extremities: - - Trace to 1+ bilateral LE edema Skin: No Rash or Ulcers Neurological: Alert and Oriented x 3, NL Muscle Strength and Tone Lines/Tubes/Other Access: Clean, Dry and Intact Peripheral IV - site benign Nutrition: Taking PO's Result Diagrams: 05/03/17 00:36 05/03/17 12:39 Additional Lab and Data: Assess/Plan/Problems-Billing Assessment: Mr. Carrion is a 36 yo female with PMH significant for liver disease of uncertain origin who presented to the emergency room after blood work at her PCP revealed hypokalemia. - Patient Problems (1) UTI (urinary tract infection) Comment: - Afebrile, mild leukocytosis - Urine culture pending - Start ceftriaxone (2) Electrolyte abnormality Code(s): E87.8 - OTH DISORDERS OF ELECTROLYTE AND FLUID BALANCE, NEC SNOMED Code(s): 910400595 Comment: - Hypokalemia and hypomagnesemia. Resolved after replacement will recheck labs in the AM. (3) Hepatic disease Code(s): K76.9 - LIVER DISEASE, UNSPECIFIED SNOMED Code(s): 812197806 Comment: - Continue lactulose, Spironolactone, and Furosemide - Low suspicion for SBP at this time - Continue to follow-up with PCP - Should have outpatient follow-up with GI (4) Chronic pain Code(s): G89.29 - OTHER CHRONIC PAIN SNOMED Code(s): 52948543 Comment: - Continue buprenorphine (5) Depression SNOMED Code(s): 01582770 Comment: - Continue sertraline (6) DVT prophylaxis Code(s): RKB9308 - SNOMED Code(s): 849538242 Comment: - SCDs (7) Full code status Code(s): Z78.9 - OTHER SPECIFIED HEALTH STATUS SNOMED Code(s): 455520156 Status and Disposition: OBV. Discharge to home when medically stable, possibly in the AM.
[2017-05-04 04:58] LABS: Hematocrit 27 % (35-47); Hemoglobin 8.9 g/dl (12.0-16.0); Mean Corpuscular HGB Conc 33 g/dl (31-36); Mean Corpuscular Hemoglobin 33 pg (27-31); Mean Corpuscular Volume 99 fL (80-97); Mean Platelet Volume 9 um3 (7.4-10.4); Red Cell Distribution Width 14 % (10.5-15); White Blood Count 9.7 10^3/ul (3.5-10.8)
[2017-05-04 05:14] LABS: BUN/Creatinine Ratio 4.6 (8-20); Calcium 8.2 mg/dL (8.6-10.3); EGFR African American 131.9 (>60); EGFR Non-African American 102.6 (>60); Magnesium 1.9 mg/dL (1.9-2.7); Potassium 3.3 mmol/L (3.5-5.0)
[2017-05-04] MEDS: Omeprazole CAP* 20 MG PO SCH (05:23)
[2017-05-04] MEDS ORDERED: Furosemide TAB* 40 MG PO SCH (08:00)
[2017-05-04] MEDS ORDERED: Spironolactone TAB* 25 MG PO SCH (09:00)
[2017-05-04] MEDS ORDERED: Folic Acid TAB* 1 MG PO SCH (09:00)
[2017-05-04] MEDS ORDERED: Buprenorphine TAB* 2 MG TAB.SL SL SCH (09:00)
[2017-05-04] MEDS ORDERED: Thiamine TAB* 100 MG TAB PO SCH (09:00)
[2017-05-04] MEDS ORDERED: Potassium Chlor TAB* 20 MEQ TAB.ER PO SCH (09:00)
[2017-05-04] MEDS ORDERED: Multivitamins/Minerals TAB PO SCH (09:00)
[2017-05-04] MEDS ORDERED: Sertraline* 50 MG TAB PO SCH (09:00)
[2017-05-04 16:16] VITALS: BP 120/64
--- NOTE | 2017-05-05 05:20 | DS ---
CC: Patricio Robertson MD; Kulwinder Lechuga MD * DISCHARGE SUMMARY: DATE OF ADMISSION: 05/03/17 DATE OF DISCHARGE: 05/04/17 PRIMARY CARE PROVIDER: Patricio Robertson MD PRINCIPAL DIAGNOSES: Hypokalemia and hypomagnesemia likely secondary to diuretic use. SECONDARY DIAGNOSES: 1. 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 2. History of alcohol abuse - in remission. 3. Depression. 4. Agoraphobia. 5. Anxiety. DISCHARGE MEDICATIONS: 1. Potassium chloride 20 mEq p.o. daily. 2. Folic acid 1 mg p.o. daily. 3. Buprenorphine 2 mg SL daily. 4. Thiamine 100 mg p.o. daily. 5. Spironolactone 100 mg p.o. daily. 6. Sertraline 50 mg p.o. daily. 7. Multivitamin 1 tab p.o. daily. 8. Lactulose 15 mL p.o. b.i.d. (reduced dose). 9. Lasix 40 mg p.o. b.i.d. HOSPITAL COURSE: Ms. Martinez is a 36-year-old female, who had routine blood work performed for her primary care provider who was then contacted by a member of her primary care provider's group stating that her potassium level was low. The patient was referred to the emergency room. In the ER, the patient's potassium level was found to be low at 2.6. The patient received IV potassium supplementation in the ER and despite this, her potassium only went up to 2.8. She was admitted for further electrolyte management. The patient continued to receive potassium supplementation. Ultimately, on the day of discharge, the patient's potassium level was 3.3. She received additional potassium supplementation. With this, her potassium is up to 4.2. I suspect the hypokalemia is secondary to losses related to her Lasix use. Additionally, the patient was found to be hypomagnesemic (mild). This too improved with supplementation. Of note, the patient had been taking over-the- counter potassium supplement of 99 mg daily. This contains only a few milliequivalents of potassium, which is clearly not enough for the patient. She had recently been prescribed 20 mEq of potassium daily by her primary; however, had yet to start this medication at home. The patient has been instructed to roll picker this medication and continue on the recommended dose of potassium supplementation. Additionally, the patient has a followup appointment with Dr. Lechuga scheduled for 05/12/17 to discuss her liver disease and further workup. At this point, the patient is felt to be stable for discharge to home and continue on her usual home medication regimen. On the day of discharge, the patient is awake, alert, and oriented, sitting up in bed, appearing to be in no acute distress. Her vital signs are stable and she is afebrile. The patient is noted to have a normal S1 and S2 with regular rate and rhythm. She does have marked tensed lower extremity edema, though she states that this is much is improved from prior. The patient's pulmonary exam reveals clear lungs. Her abdominal exam reveals marked ascites and marked abdominal distention with mild tenderness to palpation. Bowel sounds were present. At this point, again the patient is stable for discharge to home. FOLLOWUP CONCERNS: The patient is being discharged home today on 05/04/17. The patient should follow up with Dr. Robertson in the next 4 to 7 days and have a CBC, BMP and magnesium level obtained on 05/06/17. ACTIVITY LEVEL: As tolerated. DIET: Regular. CONDITION ON DISCHARGE: Stable. TIME SEEN: 35 minutes were spent discharging this patient. [id number]/[facility] #: [id number] MTDD
== END 2017-05-04 17:10 | disposition home or self-care (01) ==
LOC: ED 22:19 → MEDTELE 05-03 05:55
PROVIDERS: ADMIT Hospitalist; ATTEND Hospitalist
DX: E87.6 Hypokalemia (principal); E83.42 Hypomagnesemia; K76.9 Liver disease, unspecified; G89.29 Other chronic pain; E87.8 Other disorders of electrolyte and fluid balance, not elsewhere classified; D53.9 Nutritional anemia, unspecified; F32.9 Major depressive disorder, single episode, unspecified; F41.9 Anxiety disorder, unspecified; F40.00 Agoraphobia, unspecified; Z79.899 Other long term (current) drug therapy; F17.210 Nicotine dependence, cigarettes, uncomplicated
CPT/HCPCS: 36415; 80048; 80053; 81003; 81015; 83605; 83735; 84132; 85025; 87077; 87086; 87186; 93005; 96361; 96365; 96366; 96367; 99284; 99406; A9270-GY; G0378; J0696; J3475; J3480

== ENCOUNTER 2017-08-03 13:08 | Inpatient (IN) | payer OTHER ==
[2017-08-03 15:27] LABS: Hematocrit 25 % (35-47); Hemoglobin 8.5 g/dl (12.0-16.0); Mean Corpuscular HGB Conc 34 g/dl (31-36); Mean Corpuscular Hemoglobin 31 pg (27-31); Mean Corpuscular Volume 91 fL (80-97); Mean Platelet Volume 8 um3 (7.4-10.4); Red Blood Count 2.79 10^6/ul (4.0-5.4); Red Cell Distribution Width 15 % (10.5-15); White Blood Count 8.7 10^3/ul (3.5-10.8)
[2017-08-03 15:50] LABS: ALT 14 U/L (7-52); AST 35 U/L (13-39); Albumin 3.3 g/dL (3.2-5.2); Alkaline Phosphatase 99 U/L (34-104); Anion Gap 6 mmol/L (2-11); BUN/Creatinine Ratio 13.1 (8-20); Blood Urea Nitrogen 8 mg/dL (6-24); CO2 Carbon Dioxide 27 mmol/L (22-32); Calcium 9.4 mg/dL (8.6-10.3); Chloride 103 mmol/L (101-111); EGFR African American 141.9 (>60); EGFR Non-African American 110.4 (>60); Globulin 5.2 g/dL (2-4); Glucose 127 mg/dL (70-100); Potassium 3.7 mmol/L (3.5-5.0); Sodium 136 mmol/L (133-145); Total Protein 8.5 g/dL (6.4-8.9)
--- NOTE | 2017-08-03 15:52 | RAD ---
HISTORY: Trauma COMPARISONS: None TECHNIQUE: Multiple contiguous axial CT scans were obtained of the head without intravenous contrast. FINDINGS: HEMORRHAGE/INFARCT: There is focal hypoattenuation of the choroid plexus within the body of the right lateral ventricle further described below. Elsewhere, there is no hemorrhage or acute infarct. MASSES/SHIFT: There is no parenchymal mass. There is a high attenuation lesion of the choroid plexus of the right lateral ventricle. There is no shift. EXTRA-AXIAL SPACES: There are no extra-axial fluid collections. SULCI AND VENTRICLES: As noted above, there is a circumscribed hyperattenuating lesion of the choroid plexus within the right lateral ventricle measuring approximately 0.7 cm in size. There is no ventriculomegaly. CEREBRUM: There are no focal parenchymal abnormalities. BRAINSTEM: There are no focal parenchymal abnormalities. CEREBELLUM: There are no focal parenchymal abnormalities. VESSELS: The vessels are grossly normal. PARANASAL SINUSES: The paranasal sinuses are clear. ORBITS: The orbits are unremarkable. BONES AND SOFT TISSUE: No bone or soft tissue abnormalities are noted. OTHER: None IMPRESSION: THERE IS A HIGH ATTENUATION LESION OF THE CORD PLEXUS OF THE BODY OF THE RIGHT LATERAL VENTRICLE. GIVEN THE HISTORY OF TRAUMA, THIS MAY REPRESENT CHOROID PLEXUS HEMORRHAGE, THOUGH THIS IS UNCOMMON. THIS MAY REPRESENT A PRIMARY CHOROID PLEXUS LESION, INCLUDING A CHOROID PLEXUS MENINGIOMA OR AN ADENOMA. ADDITIONALLY, GIVEN THE HISTORY OF PARASITIC INFECTION, NEUROCYSTICERCOSIS IS WITHIN THE DIFFERENTIAL, THOUGH THIS IS ALSO CONSIDERED LESS LIKELY. RECOMMEND ATTENTION ON FOLLOW-UP EXAMINATION AND CONSIDERATION OF CONTRAST-ENHANCED MRI OF THE BRAIN IN THE NONACUTE SETTING. PRELIMINARY FINDINGS WERE DISCUSSED WITH DR. FIGUEROA AT APPROXIMATELY 3:46 PM ON 08/03/2017..
[2017-08-03 15:59] LABS: Alcohol < 10 mg/dL (<10)
[2017-08-03 17:00] LABS: Urine Bacteria Absent (Absent); Urine Bilirubin Negative (Negative); Urine Glucose Negative (Negative); Urine Nitrite Negative (Negative)
[2017-08-03 17:18] LABS: Benzodiazepine Urine Screen None Detected (None Detect)
[2017-08-03] MEDS ORDERED: Al Hydrox/Mg Hydrox/Simet LIQ* 30 ML UDC PO PRN (18:09)
--- NOTE | 2017-08-03 20:59 | ED ---
Willie Rcoha Thomas, scribed for Lobo Cline MD on 08/03/17 at 1514 . Complex/Multi-Sys Presentation - HPI Summary HPI Summary: The pt is a 36 y/o F presenting to the ED who is convinced that she is infected with parasites. She claims that there are worms in her skin, eyes, and nose. She says the worms look clear or bloody and they wriggle a bit. She has ascites and a Hx of liver disease. She has peripheral edema in bilateral lower extremities with areas of excoriation. The patient also has a periorbital hematoma on the left that she says results from a fall down the stairs a few days ago. The pt rates the pain 04/30. PMHx: intrahepatic cholestasis, DM, ascites, kidney stones, anxiety, depression, suboxone treatment, ETOH abuse. PSHx: kidney stents, . SHx: current smoker, prescribed suboxone, denies alcohol use although prior alcohol abuse. FHx: DM, HTN, depression. - History Of Current Complaint Chief Complaint: EDGeneral Time Seen by Provider: 08/03/17 13:45 Hx Obtained From: Patient Onset/Duration: Still Present Timing: Constant Severity Currently: Mild Aggravating Factor(s): None Alleviating Factor(s): None Associated Signs And Symptoms: Positive: Other - POS: peripheral edema in lower extremities, periorbital hematoma, areas of excoriation on lower extremities Related History: Other - Hx of liver disease and ascites - Allergies/Home Medications Allergies/Adverse Reactions: Allergies Allergy/AdvReac Type Severity Reaction Status Date / Time No Known Allergies Allergy Verified 08/03/17 13:12 Home Medications: Home Medications Spironolactone TAB* [Aldactone TAB*] 100 mg PO DAILY 08/03/17 [History Confirmed 08/03/17] PMH/Surg Hx/FS Hx/Imm Hx Previously Healthy: No Endocrine/Hematology History: Reports: Hx Diabetes Denies: Hx Thyroid Disease Cardiovascular History: Denies: Hx Hypertension Respiratory History: Denies: Hx Asthma, Hx Chronic Obstructive Pulmonary Disease (COPD) GI History: Reports: Other GI Disorders - ascites Denies: Hx Ulcer Sensory History: Denies: Hx Contacts or Glasses, Hx Hearing Aid Opthamlomology History: Denies: Hx Contacts or Glasses Psychiatric History: Reports: Hx Anxiety, Hx Depression Denies: Hx Eating Disorder, Hx of Violent Episodes Against Others - Surgical History Surgery Procedure, Year, and Place: KIDNEY STENTS, C SECTION Infectious Disease History: No Infectious Disease History: Reports: Hx Shingles Denies: Hx Hepatitis, Hx Human Immunodeficiency Virus (HIV), Traveled Outside the [place] in Last 30 Days - Family History Known Family History: Positive: Hypertension, Diabetes, Other - depression, no liver disease Negative: Cardiac Disease Family History: R & n/C - Social History Alcohol Use: None Alcohol Amount: denies Hx Substance Use: No Substance Use Type: Reports: None, Prescribed Substance Use Comment - Amount & Last Used: suboxone- currently denies Hx Tobacco Use: Yes Smoking Status (MU): Light Every Day Tobacco Smoker Type: Cigarettes Amount Used/How Often: 1/2ppd Review of Systems Positive: Edema - peripheral edema in her lower extremities Positive: Other - POS: excoriated areas in bilateral lower extremities, periorbital hematoma on the left Neurological: Other - POS: fall down stairs a few days ago with unknown cause Positive: Other - POS: convinced that she is infection with parasites. All Other Systems Reviewed And Are Negative: Yes Physical Exam Triage Information Reviewed: Yes Vital Signs On Initial Exam: Initial Vitals Temp Pulse Resp BP Pulse Ox 99.6 F 104 16 136/68 100 08/03/17 13:13 08/03/17 13:13 08/03/17 13:13 08/03/17 13:13 08/03/17 13:13 Vital Signs Reviewed: Yes Appearance: Positive: Well-Appearing, No Pain Distress Skin: Positive: Warm, Skin Color Reflects Adequate Perfusion, Dry, Other - She has venous stasis changes and excoriated areas Head/Face: Positive: Normal Head/Face Inspection Eyes: Positive: Other: - She has a periorbital hematoma on the left ENT: Positive: Normal ENT inspection Neck: Positive: Supple, Nontender Respiratory/Lung Sounds: Positive: Clear to Auscultation, Breath Sounds Present Cardiovascular: Positive: RRR Abdomen Description: Positive: Nontender, Soft, Other: - She has ascites Bowel Sounds: Positive: Present Musculoskeletal: Positive: Other - She has peripheral edema in her lower extremities Neurological: Positive: Normal Psychiatric: Positive: Normal, Affect/Mood Appropriate - Loyal Coma Scale Coma Scale Total: 15 Diagnostics - Vital Signs Vital Signs Temp Pulse Resp BP Pulse Ox 08/03/17 15:00 120 100 08/03/17 14:30 131/62 08/03/17 14:00 103 131/76 100 08/03/17 13:50 99.6 F 100 16 123/56 100 08/03/17 13:42 100 100 08/03/17 13:40 123/56 08/03/17 13:13 99.6 F 104 16 136/68 100 - Laboratory Lab Results: Lab Results 08/03/17 08/03/17 08/03/17 Range/Units 15:15 15:15 15:15 WBC (3.5-10.8) 10^3/ul RBC (4.0-5.4) 10^6/ul Hgb (12.0-16.0) g/dl Hct (35-47) % MCV (80-97) fL MCH (27-31) pg MCHC (31-36) g/dl RDW (10.5-15) % Plt Count (150-450) 10^3/ul MPV (7.4-10.4) um3 Neut % (Auto) (38-83) % Lymph % (Auto) (25-47) % Dorado % (Auto) (1-9) % Eos % (Auto) (0-6) % Baso % (Auto) (0-2) % Absolute Neuts (auto) (1.5-7.7) 10^3/ul Absolute Lymphs (auto) (1.0-4.8) 10^3/ul Absolute Monos (auto) (0-0.8) 10^3/ul Absolute Eos (auto) (0-0.6) 10^3/ul Absolute Basos (auto) (0-0.2) 10^3/ul Absolute Nucleated RBC 10^3/ul Nucleated RBC % INR (Anticoag Therapy) 1.32 H (0.89-1.11) Sodium 136 (133-145) mmol/L Potassium 3.7 (3.5-5.0) mmol/L Chloride 103 (101-111) mmol/L Carbon Dioxide 27 (22-32) mmol/L Anion Gap 6 (2-11) mmol/L BUN 8 (6-24) mg/dL Creatinine 0.61 (0.51-0.95) mg/dL Est GFR ( Amer) 141.9 (>60) Est GFR (Non-Af Amer) 110.4 (>60) BUN/Creatinine Ratio 13.1 (8-20) Glucose 127 H (70-100) mg/dL Lactic Acid (0.5-2.0) mmol/L Calcium 9.4 (8.6-10.3) mg/dL Total Bilirubin 2.10 H (0.2-1.0) mg/dL AST 35 (13-39) U/L ALT 14 (7-52) U/L Alkaline Phosphatase 99 (34-104) U/L Ammonia 51 (16-53) mol/L Troponin I 0.00 (<0.04) ng/mL Total Protein 8.5 (6.4-8.9) g/dL Albumin 3.3 (3.2-5.2) g/dL Globulin 5.2 H (2-4) g/dL Albumin/Globulin Ratio 0.6 L (1-3) Beta HCG, Quant < 0.60 mIU/mL Urine Color Urine Appearance Urine pH (5-9) Ur Specific Mobile (1.010-1.030) Urine Protein (Negative) Urine Ketones (Negative) Urine Blood (Negative) Urine Nitrate (Negative) Urine Bilirubin (Negative) Urine Urobilinogen (Negative) Ur Leukocyte Esterase (Negative) Urine WBC (Auto) (Absent) Urine RBC (Auto) (Absent) Ur Squamous Epith Cells (Absent) Calcium Oxalate Crystal (Absent) Urine Bacteria (Absent) Urine Glucose (Negative) Urine Opiates Screen (None Detect) Ur Barbiturates Screen (None Detect) Ur Phencyclidine Scrn (None Detect) Ur Amphetamines Screen (None Detect) U Benzodiazepines Scrn (None Detect) Urine Cocaine Screen (None Detect) U Cannabinoids Screen (None Detect) Serum Alcohol < 10 (<10) mg/dL 08/03/17 08/03/17 08/03/17 Range/Units 15:15 15:15 16:45 WBC 8.7 (3.5-10.8) 10^3/ul RBC 2.79 L (4.0-5.4) 10^6/ul Hgb 8.5 L (12.0-16.0) g/dl Hct 25 L (35-47) % MCV 91 (80-97) fL MCH 31 (27-31) pg MCHC 34 (31-36) g/dl RDW 15 (10.5-15) % Plt Count 136 L (150-450) 10^3/ul MPV 8 (7.4-10.4) um3 Neut % (Auto) 77.4 (38-83) % Lymph % (Auto) 13.4 L (25-47) % Dorado % (Auto) 5.1 (1-9) % Eos % (Auto) 3.5 (0-6) % Baso % (Auto) 0.6 (0-2) % Absolute Neuts (auto) 6.8 (1.5-7.7) 10^3/ul Absolute Lymphs (auto) 1.2 (1.0-4.8) 10^3/ul Absolute Monos (auto) 0.4 (0-0.8) 10^3/ul Absolute Eos (auto) 0.3 (0-0.6) 10^3/ul Absolute Basos (auto) 0 (0-0.2) 10^3/ul Absolute Nucleated RBC 0 10^3/ul Nucleated RBC % 0 INR (Anticoag Therapy) (0.89-1.11) Sodium (133-145) mmol/L Potassium (3.5-5.0) mmol/L Chloride (101-111) mmol/L Carbon Dioxide (22-32) mmol/L Anion Gap (2-11) mmol/L BUN (6-24) mg/dL Creatinine (0.51-0.95) mg/dL Est GFR ( Amer) (>60) Est GFR (Non-Af Amer) (>60) BUN/Creatinine Ratio (8-20) Glucose (70-100) mg/dL Lactic Acid 1.0 (0.5-2.0) mmol/L Calcium (8.6-10.3) mg/dL Total Bilirubin (0.2-1.0) mg/dL AST (13-39) U/L ALT (7-52) U/L Alkaline Phosphatase (34-104) U/L Ammonia (16-53) mol/L Troponin I (<0.04) ng/mL Total Protein (6.4-8.9) g/dL Albumin (3.2-5.2) g/dL Globulin (2-4) g/dL Albumin/Globulin Ratio (1-3) Beta HCG, Quant mIU/mL Urine Color Sue Urine Appearance Cloudy Urine pH 7.0 (5-9) Ur Specific Mobile 1.016 (1.010-1.030) Urine Protein 1+(30 mg/dl) H (Negative) Urine Ketones Negative (Negative) Urine Blood 3+ H (Negative) Urine Nitrate Negative (Negative) Urine Bilirubin Negative (Negative) Urine Urobilinogen Positive H (Negative) Ur Leukocyte Esterase Trace H (Negative) Urine WBC (Auto) Trace(0-5/hpf) (Absent) Urine RBC (Auto) 3+(>10/hpf) H (Absent) Ur Squamous Epith Cells Present H (Absent) Calcium Oxalate Crystal Present H (Absent) Urine Bacteria Absent (Absent) Urine Glucose Negative (Negative) Urine Opiates Screen (None Detect) Ur Barbiturates Screen (None Detect) Ur Phencyclidine Scrn (None Detect) Ur Amphetamines Screen (None Detect) U Benzodiazepines Scrn (None Detect) Urine Cocaine Screen (None Detect) U Cannabinoids Screen (None Detect) Serum Alcohol (<10) mg/dL 08/03/17 Range/Units 16:45 WBC (3.5-10.8) 10^3/ul RBC (4.0-5.4) 10^6/ul Hgb (12.0-16.0) g/dl Hct (35-47) % MCV (80-97) fL MCH (27-31) pg MCHC (31-36) g/dl RDW (10.5-15) % Plt Count (150-450) 10^3/ul MPV (7.4-10.4) um3 Neut % (Auto) (38-83) % Lymph % (Auto) (25-47) % Dorado % (Auto) (1-9) % Eos % (Auto) (0-6) % Baso % (Auto) (0-2) % Absolute Neuts (auto) (1.5-7.7) 10^3/ul Absolute Lymphs (auto) (1.0-4.8) 10^3/ul Absolute Monos (auto) (0-0.8) 10^3/ul Absolute Eos (auto) (0-0.6) 10^3/ul Absolute Basos (auto) (0-0.2) 10^3/ul Absolute Nucleated RBC 10^3/ul Nucleated RBC % INR (Anticoag Therapy) (0.89-1.11) Sodium (133-145) mmol/L Potassium (3.5-5.0) mmol/L Chloride (101-111) mmol/L Carbon Dioxide (22-32) mmol/L Anion Gap (2-11) mmol/L BUN (6-24) mg/dL Creatinine (0.51-0.95) mg/dL Est GFR ( Amer) (>60) Est GFR (Non-Af Amer) (>60) BUN/Creatinine Ratio (8-20) Glucose (70-100) mg/dL Lactic Acid (0.5-2.0) mmol/L Calcium (8.6-10.3) mg/dL Total Bilirubin (0.2-1.0) mg/dL AST (13-39) U/L ALT (7-52) U/L Alkaline Phosphatase (34-104) U/L Ammonia (16-53) mol/L Troponin I (<0.04) ng/mL Total Protein (6.4-8.9) g/dL Albumin (3.2-5.2) g/dL Globulin (2-4) g/dL Albumin/Globulin Ratio (1-3) Beta HCG, Quant mIU/mL Urine Color Urine Appearance Urine pH (5-9) Ur Specific Mobile (1.010-1.030) Urine Protein (Negative) Urine Ketones (Negative) Urine Blood (Negative) Urine Nitrate (Negative) Urine Bilirubin (Negative) Urine Urobilinogen (Negative) Ur Leukocyte Esterase (Negative) Urine WBC (Auto) (Absent) Urine RBC (Auto) (Absent) Ur Squamous Epith Cells (Absent) Calcium Oxalate Crystal (Absent) Urine Bacteria (Absent) Urine Glucose (Negative) Urine Opiates Screen None detected (None Detect) Ur Barbiturates Screen None detected (None Detect) Ur Phencyclidine Scrn None detected (None Detect) Ur Amphetamines Screen None detected (None Detect) U Benzodiazepines Scrn None detected (None Detect) Urine Cocaine Screen None detected (None Detect) U Cannabinoids Screen None detected (None Detect) Serum Alcohol (<10) mg/dL Result Diagrams: 08/03/17 15:15 08/03/17 15:15 Lab Statement: Any lab studies that have been ordered have been reviewed, and results considered in the medical decision making process. - CT CT Brain CT Interpretation: Positive (See Comments) - THERE IS A HIGH ATTENUATION LESION OF THE CORD PLEXUS OF THE BODY OF THE RIGHT LATERAL VENTRICLE. GIVEN THE HISTORY OF TRAUMA, THIS MAY REPRESENT CHOROID PLEXUS HEMORRHAGE, THOUGH THIS IS UNCOMMON. THIS MAY REPRESENT A PRIMARY CHOROID PLEXUS LESION, INCLUDING A CHOROID PLEXUS MENINGIOMA OR AN ADENOMA. ADDITIONALLY, GIVEN THE HISTORY OF PARASITIC INFECTION, NEUROCYSTICERCOSIS IS WITHIN THE DIFFERENTIAL, THOUGH THIS IS ALSO CONSIDERED LESS LIKELY. RECOMMEND ATTENTION ON FOLLOW-UP EXAMINATION AND CONSIDERATION OF CONTRAST-ENHANCED MRI OF THE BRAIN IN THE NONACUTE SETTING. CT Interpretation Completed By: Radiologist Complex Multi-Symp Course/Dx Course Of Treatment: Ms. Martinez presented with a concern for parasites in her skin and all orifices. She was AAOX3 but it was difficult to tell if she was confused or delusional. She had a black eye from falling down the steps and her INR runs high routinely so a head CT was obtained which was equivocal for bleeding. Dr. Riley and Dr. Johnson were contacted and she karina be admitted. - Diagnoses Provider Diagnoses: Confusion, Cerebral hemorrhage following injury - Physician Notifications Discussed Care Of Patient With: Eric Johnson Time Discussed With Above Provider: 16:48 Instructed by Provider To: Other - I discussed care with Dr. Johnson, hospitalist. He is aware of the patient. I also consulted with Dr. Riley, neurosurgery, at 16:41 regarding patient care. I also cosulted with Dr. Carpenter, hospitalist, who admits the patient at 18:09. Discharge - Discharge Plan Condition: Fair Disposition: ADMITTED TO [facility] documentation as recorded by the Willie levin Thomas accurately reflects the service I personally performed and the decisions made by me, Lobo Cline MD.
[2017-08-03] MEDS ORDERED: Gadoteridol* (CONTRAST) 279.3 MG/ML 10 ML IV ONE (21:08)
[2017-08-03] MEDS ORDERED: Phytonadione Oral Solution* 5 MG/25 ML UDC PO ONE (21:30)
--- NOTE | 2017-08-03 21:44 | HP ---
HISTORY AND PHYSICAL: DATE OF ADMISSION: 08/03/17 PRIMARY CARE PHYSICIAN: Dr. Robertson. CHIEF COMPLAINT: Worms. HISTORY OF PRESENT ILLNESS: This is a 36-year-old female with history of unspecified liver disease presenting to the emergency department complaining that she sees worms that she believes are parasites coming out of her legs, her pupils, her stool, and "everywhere on my body." She has been noticing this for several months; however, this has gotten worse and today she reports being so scared by seeing creatures coming out of her body that she came to the emergency department. She said she saw little white worms coming out of her right pupil and also out of her nose. She denies any visual hallucinations or other psychiatric illnesses. She is not currently drinking. She has not recently followed up with Dr. Lechuga for further workup of her liver disease. Incidentally, she is found to have a hematoma around her left eye and she reports having fallen down the stairs on Tuesday. She denies domestic abuse in regards to the fall down the stairs; however, she does note that her balance has been unsteady recently. PAST MEDICAL HISTORY: Unspecified liver disease. She is told that it is all secondary to alcohol. FAMILY HISTORY: She denies any family history of liver disease. Her mother of bladder cancer. Her father of COPD. SOCIAL HISTORY: She lives at home with her , Hu, and her 2 children. Hu's phone number is [phone] and [phone]; he would be her decision maker if she were unable to make decisions. She smokes 5 cigarettes per day. She has been abstinent from alcohol since the spring when she was diagnosed with liver disease. She is currently not working. REVIEW OF SYSTEMS: General: Positive for 50-pound weight loss in the past few months that was unintentional. HEENT: Denies headache. Denies change in vision. Chest: Denies chest pain, shortness of breath. Does note severe left shoulder pain since her fall on Tuesday. Abdomen: Positive for abdominal distention. Positive for loose stools. Positive for seeing parasites in her stool. Extremities: Positive for bilateral swelling, excoriation, and again seeing worms coming out of her legs. PHYSICAL EXAMINATION GENERAL: Alert, pale, anxious female, in no distress. VITAL SIGNS: Blood pressure 102/61, oxygen saturation 100% on room air, heart rate 97 to 120, temperature 99.6 degrees. HEENT: Dried blood around left naris, ecchymosis surrounding left orbit. Pupils equal, round, and reactive to light. Moist mucosa. NECK: No lymphadenopathy. Thyroid nonpalpable. LUNGS: Lungs are clear bilaterally with no rhonchi or wheezes. HEART: Regular rate and rhythm with systolic murmur heard best at the left lower sternal border. ABDOMEN: Distended with thick striae. No appreciable fluid wave. Liver is palpable 2 to 3 cm below the costal margin. Spleen is not palpable. EXTREMITIES: 2+ edema to the thighs with diffuse excoriation, warmth, and erythema. No worms or parasites are noted. Strength is 5+ bilaterally. NEUROLOGICAL: Oriented x3. No asterixis though some fasciculations noted in her tongue while she does express seeing worms. She also expresses insight that she knows people think she is crazy. DIAGNOSTIC STUDIES/LAB DATA: On admission, hemoglobin 8.5, baseline is above 9 ; white blood cells 8.7; MCV 91; platelets 136. Sodium 136, potassium 3.7, chloride 103, bicarb 27, BUN 8, creatinine 0.61. INR 1.32. Albumin 3.3, total protein 8.5. Total bilirubin 2.1, ALT 14, AST 35, alk phos 99. UA positive for protein, blood, and rbc's. Urine drug screen is negative. CT head showed a high attenuation lesion of the choroid plexus of the body of the right lateral ventricle. Given the history of trauma this may represent choroid plexus hemorrhage, though this is uncommon. It may also represent a primary choroid plexus lesion including choroid plexus meningioma or adenoma. Additionally, given the history of parasitic infection, neurocysticercosis is on the differential though this is also considered less likely. ASSESSMENT AND PLAN: This is a 36-year-old female with history of unspecified liver disease presenting seeing parasites coming out of her legs, incidentally found to have a hematoma and concern now for a choroid plexus hemorrhage. 1. CT findings of possible choroid plexus hemorrhage. This is certainly possible given her history of trauma. I would like to better qualify these findings with an MRI with and without contrast and she has no contraindications to an MRI. Also, given her coagulopathy in the presence of a possible bleed, I am giving vitamin K now. If bleed is confirmed through MRI, she may benefit from more vitamin K. While neurocysticercosis is included in the differential on the radiology report, she has no exposure to raw meat, travel, raw fish, etc. 2. Decompensated liver failure with coagulopathy. I am reversing her coagulopathy as above. Her liver failure etiology is unclear to me, but seems out of proportion to her degree of alcohol abuse in the past. It will be helpful to have the outpatient records for autoimmune workup. 3. Normocytic anemia. She is near baseline. I suspect this is also related to her liver failure; however, there may be some component of blood loss given her recent epistaxis and trauma. 4. Amenorrhea. She reports not having had a period for the past few years. Check HCG. 5. Proteinuria. Likely related to her liver disease. Serum albumin is within normal limits. 6. DVT prophylaxis. Contraindicated in the setting of coagulopathy and concern for bleed. [id number]/[facility] #: [id number] MTDD
[2017-08-04 06:30] LABS: Hematocrit 24 % (35-47); Mean Corpuscular HGB Conc 34 g/dl (31-36); Mean Corpuscular Hemoglobin 31 pg (27-31); Mean Corpuscular Volume 92 fL (80-97); Mean Platelet Volume 8 um3 (7.4-10.4); Red Blood Count 2.57 10^6/ul (4.0-5.4); Red Cell Distribution Width 15 % (10.5-15); White Blood Count 7.1 10^3/ul (3.5-10.8)
[2017-08-04 06:38] LABS: Albumin 3.6 g/dL (3.2-5.2); BUN/Creatinine Ratio 13.6 (8-20); Calcium 9.3 mg/dL (8.6-10.3); EGFR African American 129.6 (>60); EGFR Non-African American 100.8 (>60); Globulin 4.3 g/dL (2-4); Potassium 3.6 mmol/L (3.5-5.0); Total Bilirubin 2.1 mg/dL (0.2-1.0); Total Protein 7.9 g/dL (6.4-8.9)
--- NOTE | 2017-08-04 07:55 | RAD ---
HISTORY: Concern for choroid plexus hemorrhage COMPARISONS: CT dated August 03, 2017 TECHNIQUE: The following sequences were obtained of the head: Sagittal T1-weighted images, axial T2-weighted images, axial FLAIR images, axial susceptibility weighted images, axial T1-weighted images. Additionally, axial diffusion-weighted images were obtained with calculated apparent diffusion coefficients. FINDINGS: The study is limited by patient motion artifact. HEMORRHAGE/INFARCT: There is no hemorrhage or acute infarct. MASSES/SHIFT: There is no mass or shift. EXTRA-AXIAL SPACES/MENINGES: There are no extra-axial fluid collections. SULCI AND VENTRICLES: There is a low T1 and low T2 signal lesion of the body of right lateral ventricle corresponding to the attenuation lesion noted on CT. There is associated susceptibility artifact. There is no enhancement. This measures approximately 0.5 cm in size. There is no ventriculomegaly. CEREBRUM: There are no focal parenchymal abnormalities. BRAINSTEM: There are no focal parenchymal abnormalities. CEREBELLUM: There are no focal parenchymal abnormalities. The cerebellar tonsils are normal in size and position. SELLA: The sella is normal. PINEAL: The pineal region is clear. CP ANGLE/TEMPORAL BONES: The labyrinthine structures are grossly normal. VESSELS: Normal flow-voids are noted within the visualized vertebral vasculature. DIFFUSION ABNORMALITIES: There are no diffusion abnormalities. PARANASAL SINUSES/MASTOIDS: The paranasal sinuses are clear. ORBITS: The orbits are unremarkable. BONES AND SOFT TISSUE: There is preorbital soft tissue swelling on the left OTHER: None IMPRESSION: 1. THE LESION NOTED WITHIN THE RIGHT LATERAL VENTRICLE ON CT HAS IMAGING FEATURES SUGGESTIVE OF CALCIFICATION RATHER THAN HEMORRHAGE OR PROTEINACEOUS FLUID. THERE IS NO ASSOCIATED ENHANCEMENT. THIS IS OF UNCLEAR ETIOLOGY, THOUGH IS LIKELY AN INDOLENT LESION, INCIDENTAL TO THE PRESENTING HISTORY. THE DIFFERENTIAL INCLUDES CALCIFIED XANTHOGRANULOMA, CALCIFIED/OSSIFIED CHOROID PLEXUS NEOPLASM, INCLUDING MENINGIOMA, PAPILLOMA, OR EPENDYMOMA, OR DYSTROPHIC CALCIFICATION, INCLUDING RELATED TO PREVIOUS INFECTION. WHILE THE NEUROCYSTICERCOSIS IS WITHIN THE DIFFERENTIAL, THIS IS CONSIDERED LESS LIKELY GIVEN THE ABSENCE OF ANY OTHER LESIONS ELSEWHERE IN THE BRAIN. 2. LEFT PREORBITAL SOFT TISSUE SWELLING 3. RECOMMEND ATTENTION ON FOLLOW-UP IMAGING.
[2017-08-04] MEDS: Furosemide TAB* 40 MG PO SCH ×2 (09:25→16:49)
[2017-08-04] MEDS: Potassium Chlor TAB* 20 MEQ TAB.ER PO SCH (09:25)
[2017-08-04] MEDS: Spironolactone TAB* 25 MG PO SCH (09:25)
[2017-08-04] MEDS: Multivitamins/Minerals TAB PO SCH (09:25)
[2017-08-04] MEDS: Folic Acid TAB* 1 MG PO SCH (09:26)
[2017-08-04] MEDS: Sertraline* 50 MG TAB PO SCH (09:26)
[2017-08-04] MEDS: Thiamine TAB* 100 MG TAB PO SCH (09:26)
[2017-08-04] MEDS: Buprenorphine TAB* 2 MG TAB.SL SL SCH (09:36)
--- NOTE | 2017-08-04 16:09 | PN ---
Subjective Date of Service: 08/04/17 Interval History: Patient seen and examined at bedside. Denies fever, chills, shortness of breath , chest discomfort, N/V/D. Pt states that she fell down the stairs on Tuesday resulting in a left black eye and bruising to her left shoulder. She also notes that since she fell she has a lump in her left upper breast, this area is not painful. Pt states that she has felt like "something was crawling on her skin" since she was diagnosed with a liver condition in February of this year. She also reports swelling in her legs and abdomen. Pt reports "brown" drainage from her legs. She denies alcohol use since February. Pt feels that there are "worms" everywhere on here skin and when she picks at a scabbed area, she can see "tentacles". Family History: Unchanged from Admission Social History: Unchanged from Admission Past Medical History: Unchanged from Admission Objective Active Medications: Al Hydrox/Mg Hydrox/Simethicone (Maalox Plus*) 30 ml PO Q6H PRN Reason: INDIGESTION Buprenorphine HCl (Subutex Tab*) 2 mg SL QAM IRA Folic Acid (Folvite Tab*) 1 mg PO DAILY IRA Furosemide (Lasix Tab*) 40 mg PO 0800,1600 IRA Lactulose (Lactulose*) 15 ml PO BID IRA Multivitamins/Minerals (Theragran/Minerals Tab*) 1 tab PO DAILY IRA Potassium Chloride (Klor Con Er Tab*) 20 meq PO DAILY IRA Sertraline HCl (Zoloft*) 50 mg PO DAILY IRA Spironolactone (Aldactone Tab*) 100 mg PO DAILY IRA Thiamine HCl (Vitamin B-1 Tab*) 100 mg PO DAILY IRA Vital Signs 08/03/17 08/03/17 08/03/17 18:30 18:34 19:00 Temperature Pulse Rate 106 103 105 Respiratory Rate Blood Pressure 89/58 92/50 (mmHg) O2 Sat by Pulse 96 96 96 Oximetry 08/03/17 08/03/17 08/03/17 19:01 19:04 20:00 Temperature 100.2 F 98.4 F Pulse Rate 105 103 Respiratory 18 18 Rate Blood Pressure 93/51 125/60 (mmHg) O2 Sat by Pulse 99 100 Oximetry 08/03/17 08/03/17 08/04/17 20:11 23:37 03:40 Temperature 98.4 F 98.3 F 95.8 F Pulse Rate 103 96 94 Respiratory 18 18 12 Rate Blood Pressure 125/60 113/60 128/49 (mmHg) O2 Sat by Pulse 100 99 100 Oximetry 08/04/17 08/04/17 08/04/17 07:39 08:00 09:36 Temperature 98.3 F Pulse Rate 89 Respiratory 17 17 16 Rate Blood Pressure 108/51 (mmHg) O2 Sat by Pulse 99 Oximetry 08/04/17 11:40 Temperature 98.6 F Pulse Rate 90 Respiratory 17 Rate Blood Pressure 121/56 (mmHg) O2 Sat by Pulse 98 Oximetry Oxygen Devices in Use Now: None Appearance: NAD, sitting on the side of the bed Eyes: PERRLA, - - Ecchymosis surrounding left eye Ears/Nose/Mouth/Throat: Mucous Membranes Moist, - - Dry blood in left nares Respiratory: Symmetrical Chest Expansion and Respiratory Effort, Clear to Auscultation Cardiovascular: RRR, - - Systolic murmur herd best at the left lower sternal border Abdominal: - - ABD large with pannus, thick stiae noted on lower abd. no fluid wave noted. Lump noted in the left upper breast at ~ 12 o'clock is ~ 4 (h) x 1 ( w) cm and is not tender to palpation. Skin: - - Multiple areas to arms and legs that appear to be scabs from skin picking. Bilateral LE with weeping edema, slight erythema. No parasites noted. Neurological: Alert and Oriented x 3, NL Muscle Strength and Tone Lines/Tubes/Other Access: Clean, Dry and Intact Peripheral IV - site benign Nutrition: Taking PO's Result Diagrams: 08/04/17 05:45 08/04/17 05:45 Diagnostic Imaging: Brain CT on 08/03 - IMPRESSION: THERE IS A HIGH ATTENUATION LESION OF THE CORD PLEXUS OF THE BODY OF THE RIGHT LATERAL VENTRICLE. GIVEN THE HISTORY OF TRAUMA, THIS MAY REPRESENT CHOROID PLEXUS HEMORRHAGE, THOUGH THIS IS UNCOMMON. THIS MAY REPRESENT A PRIMARY CHOROID PLEXUS LESION, INCLUDING A CHOROID PLEXUS MENINGIOMA OR AN ADENOMA. ADDITIONALLY , GIVEN THE HISTORY OF PARASITIC INFECTION, NEUROCYSTICERCOSIS IS WITHIN THE DIFFERENTIAL, THOUGH THIS IS ALSO CONSIDERED LESS LIKELY. RECOMMEND ATTENTION ON FOLLOW-UP EXAMINATION AND CONSIDERATION OF CONTRAST-ENHANCED MRI OF THE BRAIN IN THE NONACUTE SETTING. Brain MRI on 9/14 - IMPRESSION: 1. THE LESION NOTED WITHIN THE RIGHT LATERAL VENTRICLE ON CT HAS IMAGING FEATURES SUGGESTIVE OF CALCIFICATION RATHER THAN HEMORRHAGE OR PROTEINACEOUS FLUID. THERE IS NO ASSOCIATED ENHANCEMENT. THIS IS OF UNCLEAR ETIOLOGY, THOUGH IS LIKELY AN INDOLENT LESION, INCIDENTAL TO THE PRESENTING HISTORY. THE DIFFERENTIAL INCLUDES CALCIFIED XANTHOGRANULOMA, CALCIFIED/OSSIFIED CHOROID PLEXUS NEOPLASM, INCLUDING MENINGIOMA, PAPILLOMA, OR EPENDYMOMA, OR DYSTROPHIC CALCIFICATION, INCLUDING RELATED TO PREVIOUS INFECTION. WHILE THE NEUROCYSTICERCOSIS IS WITHIN THE DIFFERENTIAL, THIS IS CONSIDERED LESS LIKELY GIVEN THE ABSENCE OF ANY OTHER LESIONS ELSEWHERE IN THE BRAIN. 2. LEFT PREORBITAL SOFT TISSUE SWELLING 3. RECOMMEND ATTENTION ON FOLLOW-UP IMAGING. Assess/Plan/Problems-Billing Assessment: Ms. 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 - Patient Problems (1) Choroid plexus hemorrhage Code(s): I61.9 - NONTRAUMATIC INTRACEREBRAL HEMORRHAGE, UNSPECIFIED SNOMED Code(s): 48645452 Comment: - Brain CT with findings consistent with possible hemorrhage - Brain MRI with findings consistent with possible calcification and no hemorrhage noted - Neurosurgery reviewed the scans and feels there is no need for a surgical intervention at this time - Neuro checks WNL (2) Hepatic disease Current Visit: No Status: Chronic Code(s): K76.9 - LIVER DISEASE, UNSPECIFIED SNOMED Code(s): 631621345 Comment: - Suspect this is alcoholic hepatitis - Low suspicion for SBP at this time - Continue to follow-up with PCP and GI outpatient - Continue lactulose, Spironolactone, and Furosemide (3) Hepatic encephalopathy Code(s): K72.90 - HEPATIC FAILURE, UNSPECIFIED WITHOUT COMA SNOMED Code(s): 45438385 Comment: - ? if this is the cause of some of the Pt's hallucinations - She has not had a BM since 08/02 - Ammonia 51 on admission - Will check ammonia level in the AM - Increase lactulose to TID with goal of 3-4 BMs daily (4) Hallucinations, visual Code(s): R44.1 - VISUAL HALLUCINATIONS SNOMED Code(s): 87796342 Comment: - Suspect this may be related to hepatic encephalopathy - Psychiatric consult pending (5) Normocytic anemia Code(s): D64.9 - ANEMIA, UNSPECIFIED SNOMED Code(s): 979388191 Comment: - Appears to be near her baseline - Suspect secondary to her liver failure (6) Tobacco abuse Code(s): Z72.0 - TOBACCO USE SNOMED Code(s): 715768366 Comment: - Continue nicotine replacement (7) Anxiety and depression Code(s): F41.8 - OTHER SPECIFIED ANXIETY DISORDERS SNOMED Code(s): 913444940 Comment: - Continue sertraline (8) Thrombocytopenia Code(s): D69.6 - THROMBOCYTOPENIA, UNSPECIFIED SNOMED Code(s): 865417131 Comment: - Appears to be near baseline - Suspect secondary to liver disease (9) Proteinuria Code(s): R80.9 - PROTEINURIA, UNSPECIFIED SNOMED Code(s): 18740003 Comment: - Suspect secondary to liver disease - Albumin WNL (10) Amenorrhea Code(s): N91.2 - AMENORRHEA, UNSPECIFIED SNOMED Code(s): 26083094 Comment: - No menses for a few years - HCG negative (11) Left breast lump Code(s): N63 - UNSPECIFIED LUMP IN BREAST SNOMED Code(s): 32545662 Comment: - Lump noted in the left upper breast at ~ 12 o'clock ~ 4 (h) x 1 (w) cm, that is not tender to palpation. - Pt has never had a mammogram - Suggest outpatient follow-up (12) DVT prophylaxis Current Visit: No Status: Acute Code(s): BGQ3213 - SNOMED Code(s): 334388814 Comment: - SCDs only in the setting of coagulopathy (13) Full code status Code(s): Z78.9 - OTHER SPECIFIED HEALTH STATUS SNOMED Code(s): 127996060 Status and Disposition: Inpatient. Discharge to home when medically stable.
[2017-08-04] MEDS ORDERED: Nicotine Inhaler* 10 MG AMP INH PRN (16:40)
[2017-08-04] MEDS ORDERED: Mouth Piece, Nicotine* 1 EACH CARTRIDGE INH ONE (17:00)
[2017-08-05 06:49] LABS: Hematocrit 24 % (35-47); Hemoglobin 8.2 g/dl (12.0-16.0); Mean Corpuscular HGB Conc 34 g/dl (31-36); Mean Corpuscular Hemoglobin 31 pg (27-31); Mean Corpuscular Volume 92 fL (80-97); Mean Platelet Volume 8 um3 (7.4-10.4); Red Blood Count 2.63 10^6/ul (4.0-5.4); Red Cell Distribution Width 15 % (10.5-15); White Blood Count 5.9 10^3/ul (3.5-10.8)
[2017-08-05] MEDS: Furosemide TAB* 40 MG PO SCH ×2 (09:55→16:39)
[2017-08-05] MEDS: Sertraline* 50 MG TAB PO SCH (09:55)
[2017-08-05] MEDS: Spironolactone TAB* 25 MG PO SCH (09:55)
[2017-08-05] MEDS: Potassium Chlor TAB* 20 MEQ TAB.ER PO SCH (09:56)
[2017-08-05] MEDS: Multivitamins/Minerals TAB PO SCH (09:56)
[2017-08-05] MEDS: Thiamine TAB* 100 MG TAB PO SCH (09:56)
[2017-08-05] MEDS: Folic Acid TAB* 1 MG PO SCH (09:56)
[2017-08-05] MEDS: Buprenorphine TAB* 2 MG TAB.SL SL SCH (12:25)
--- NOTE | 2017-08-05 17:50 | PN ---
Subjective Date of Service: 08/05/17 Interval History: Patient seen and examined at bedside. Denies fever, chills, shortness of breath , chest discomfort, N/V/D. Pt is upset that no one believes her about the parasites that she has but she is working on excepting that. She reports that she isn't sure if she would like to take the seroquel, she was asked to think about it overnight. Family History: Unchanged from Admission Social History: Unchanged from Admission Past Medical History: Unchanged from Admission Objective Active Medications: Al Hydrox/Mg Hydrox/Simethicone (Maalox Plus*) 30 ml PO Q6H PRN Reason: INDIGESTION Buprenorphine HCl (Subutex Tab*) 2 mg SL QAM IRA Folic Acid (Folvite Tab*) 1 mg PO DAILY IRA Furosemide (Lasix Tab*) 40 mg PO 0800,1600 IRA Lactulose (Lactulose*) 30 ml PO QID SCHl Multivitamins/Minerals (Theragran/Minerals Tab*) 1 tab PO DAILY IRA Nicotine (Nicotine Inhaler*) 10 mg INH Q2H PRN Reason: CRAVING Potassium Chloride (Klor Con Er Tab*) 20 meq PO DAILY IRA Quetiapine Fumarate (Seroquel Tab*) 200 mg PO BEDTIME IRA Sertraline HCl (Zoloft*) 50 mg PO DAILY IRA Spironolactone (Aldactone Tab*) 100 mg PO DAILY IRA Thiamine HCl (Vitamin B-1 Tab*) 100 mg PO DAILY IRA Vital Signs 08/04/17 08/04/17 08/04/17 20:00 20:26 23:27 Temperature 98.2 F 98.4 F Pulse Rate 95 91 Respiratory 18 20 15 Rate Blood Pressure 120/57 141/64 (mmHg) O2 Sat by Pulse 99 100 Oximetry 08/05/17 08/05/17 08/05/17 03:39 07:31 08:00 Temperature 98.3 F 98.0 F Pulse Rate 92 93 Respiratory 14 18 16 Rate Blood Pressure 115/53 119/45 (mmHg) O2 Sat by Pulse 99 98 Oximetry 08/05/17 08/05/17 08/05/17 12:25 14:19 16:59 Temperature 97.8 F Pulse Rate 92 Respiratory 16 16 20 Rate Blood Pressure 105/61 (mmHg) O2 Sat by Pulse 99 Oximetry Oxygen Devices in Use Now: None Appearance: NAD, sitting up on the side of the bed Eyes: PERRLA, - - Ecchymosis to left eye Ears/Nose/Mouth/Throat: Mucous Membranes Moist Respiratory: Symmetrical Chest Expansion and Respiratory Effort, Clear to Auscultation Cardiovascular: NL Sounds; No Murmurs; No JVD, RRR Abdominal: NL Sounds; No Tenderness; No Distention Extremities: - - Bilateral LE edema Skin: - - MARIELOS wraps to bilateral LEs, multiple areas of skin picking Neurological: Alert and Oriented x 3, NL Muscle Strength and Tone Lines/Tubes/Other Access: Clean, Dry and Intact Peripheral IV - site benign Nutrition: Taking PO's Result Diagrams: 08/05/17 06:34 08/04/17 05:45 Additional Lab and Data: Diagnostic Imaging: Brain CT on 08/03 - IMPRESSION: THERE IS A HIGH ATTENUATION LESION OF THE CORD PLEXUS OF THE BODY OF THE RIGHT LATERAL VENTRICLE. GIVEN THE HISTORY OF TRAUMA, THIS MAY REPRESENT CHOROID PLEXUS HEMORRHAGE, THOUGH THIS IS UNCOMMON. THIS MAY REPRESENT A PRIMARY CHOROID PLEXUS LESION, INCLUDING A CHOROID PLEXUS MENINGIOMA OR AN ADENOMA. ADDITIONALLY , GIVEN THE HISTORY OF PARASITIC INFECTION, NEUROCYSTICERCOSIS IS WITHIN THE DIFFERENTIAL, THOUGH THIS IS ALSO CONSIDERED LESS LIKELY. RECOMMEND ATTENTION ON FOLLOW-UP EXAMINATION AND CONSIDERATION OF CONTRAST-ENHANCED MRI OF THE BRAIN IN THE NONACUTE SETTING. Brain MRI on 08/04 - IMPRESSION: 1. THE LESION NOTED WITHIN THE RIGHT LATERAL VENTRICLE ON CT HAS IMAGING FEATURES SUGGESTIVE OF CALCIFICATION RATHER THAN HEMORRHAGE OR PROTEINACEOUS FLUID. THERE IS NO ASSOCIATED ENHANCEMENT. THIS IS OF UNCLEAR ETIOLOGY, THOUGH IS LIKELY AN INDOLENT LESION, INCIDENTAL TO THE PRESENTING HISTORY. THE DIFFERENTIAL INCLUDES CALCIFIED XANTHOGRANULOMA, CALCIFIED/OSSIFIED CHOROID PLEXUS NEOPLASM, INCLUDING MENINGIOMA, PAPILLOMA, OR EPENDYMOMA, OR DYSTROPHIC CALCIFICATION, INCLUDING RELATED TO PREVIOUS INFECTION. WHILE THE NEUROCYSTICERCOSIS IS WITHIN THE DIFFERENTIAL, THIS IS CONSIDERED LESS LIKELY GIVEN THE ABSENCE OF ANY OTHER LESIONS ELSEWHERE IN THE BRAIN. 2. LEFT PREORBITAL SOFT TISSUE SWELLING 3. RECOMMEND ATTENTION ON FOLLOW-UP IMAGING. Assess/Plan/Problems-Billing Assessment: Ms. 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 - Patient Problems (1) Choroid plexus hemorrhage Code(s): I61.9 - NONTRAUMATIC INTRACEREBRAL HEMORRHAGE, UNSPECIFIED SNOMED Code(s): 54301690 Comment: - Brain CT with findings consistent with possible hemorrhage - Brain MRI with findings consistent with possible calcification and no hemorrhage noted - Neurosurgery reviewed the scans and feels there is no need for a surgical intervention at this time - Neuro checks WNL (2) Hepatic disease Current Visit: No Status: Chronic Code(s): K76.9 - LIVER DISEASE, UNSPECIFIED SNOMED Code(s): 076296303 Comment: - Suspect this is alcoholic hepatitis - Low suspicion for SBP at this time - Continue to follow-up with PCP and GI outpatient - Continue lactulose, Spironolactone, and Furosemide (3) Hepatic encephalopathy Code(s): K72.90 - HEPATIC FAILURE, UNSPECIFIED WITHOUT COMA SNOMED Code(s): 72648556 Comment: - ? if this is the cause of some of the Pt's hallucinations - She has not had a BM since 08/02 - Ammonia 51 on admission and 32 today - Increase lactulose to QID with goal of 3-4 BMs daily (4) Hallucinations, visual Code(s): R44.1 - VISUAL HALLUCINATIONS SNOMED Code(s): 85198195 Comment: - Suspect this may be related to hepatic encephalopathy - Psychiatric consult, input appreciated - Started on Seroquel (5) Normocytic anemia Code(s): D64.9 - ANEMIA, UNSPECIFIED SNOMED Code(s): 150093030 Comment: - Appears to be near her baseline - Suspect secondary to her liver failure (6) Tobacco abuse Code(s): Z72.0 - TOBACCO USE SNOMED Code(s): 997694933 Comment: - Continue nicotine replacement (7) Anxiety and depression Code(s): F41.8 - OTHER SPECIFIED ANXIETY DISORDERS SNOMED Code(s): 086105956 Comment: - Continue sertraline (8) Thrombocytopenia Code(s): D69.6 - THROMBOCYTOPENIA, UNSPECIFIED SNOMED Code(s): 196516477 Comment: - Appears to be near baseline - Suspect secondary to liver disease (9) Proteinuria Code(s): R80.9 - PROTEINURIA, UNSPECIFIED SNOMED Code(s): 91540555 Comment: - Suspect secondary to liver disease - Albumin WNL (10) Amenorrhea Code(s): N91.2 - AMENORRHEA, UNSPECIFIED SNOMED Code(s): 56758799 Comment: - No menses for a few years - HCG negative (11) Left breast lump Code(s): N63 - UNSPECIFIED LUMP IN BREAST SNOMED Code(s): 12557107 Comment: - Lump noted in the left upper breast at ~ 12 o'clock ~ 4 (h) x 1 (w) cm, that is not tender to palpation. - Pt has never had a mammogram - Suggest outpatient follow-up (12) DVT prophylaxis Current Visit: No Status: Acute Code(s): JGP0493 - SNOMED Code(s): 995016599 Comment: - SCDs only in the setting of coagulopathy (13) Full code status Code(s): Z78.9 - OTHER SPECIFIED HEALTH STATUS SNOMED Code(s): 774007242 Status and Disposition: Inpatient. Discharge to home vs voluntary psychiatric admission when medically stable, possibly in 1-2 days.
[2017-08-05] MEDS ORDERED: QUEtiapine TAB* 100 MG PO SCH (21:00)
--- NOTE | 2017-08-05 22:28 | CONS ---
PSYCHIATRIC CONSULTATION REPORT: DATE OF CONSULT: 08/05/17 DATE OF ADMISSION: 08/03/17 ATTENDING PROVIDER: Irais Marshall NP SUPERVISING PSYCHIATRIST: Dr. Andres Braden. ( DICTATED BY TIMUR ROBBINS NP) REASON FOR CONSULTATION: Visual hallucinations and skin picking. SUBJECTIVE HISTORY: Psychiatry was asked to see this 36-year-old white female with a history of depression and anxiety. She was diagnosed with liver disease 4 months ago. This was felt to be secondary to alcohol use. She states that she has stopped drinking alcohol since that time as has her as well. Therefore, there is no alcohol in the home. The patient presented to the emergency department with complaints of seeing worms that she believes are parasites coming out of various orifices in her body. She was admitted to the medical floor from the emergency department to rule out hemorrhage in the brain. Recently, she has been losing balance and falling often. She is noted to have multiple bruises all over her body including her left eye. She denies domestic violence and her report of falling down the stairs is corroborated by various family members. Brain imaging was done prior to psychiatric consultation. At the time of consult, the patient was pleasant and cooperative. She states understanding of reason for psychiatric consultation. She acknowledges that her symptoms can be construed as mental health in nature. Gita states "they think I am crazy because I have a parasite that no one sees." She reports that the onset was approximately a month ago. She said she started seeing tiny worms under her skin. She says prior to that, she blew her nose and noticed a large blood clot and blew her nose again and then saw a tiny worm. She describes picking sores on her arms and legs and goes into great detail about the various stages of the larva and worms that she sees. She states that her and her son and another friend of hers have verified her accounts. She notices some in the corners of her mouth, corners of her eyes and eye brows as well. She states that her has also seen like a translucent worm shaped organism floating across her eyes including the iris and the pupil. She denies audio hallucination. She denies depersonalization or other delusions. She denies depressed mood, anxiousness, SI, HI, or . Gita states that she realizes that her liver disease can cause various symptoms including decreased concentration and what she calls a brain fog. She endorses that she has noticed these symptoms since the summer. She reports her sleep is very inconsistent. She denies feeling tired, but her sister who is present for part of the interview reports that Gita is often tired and tends to fall asleep mid sentence or mid conversation via text or phone. Gita is noted to have a significant peripheral edema in bilateral lower extremities. There are many weeping wounds and scabs. She states that she engages in picking these in a compulsive manner. She states that while picking these, she notices small worm type organisms beginning to protrude and then they sink back into her tissues. During the conversation, she reports that she notices these organisms especially after using apricot scrubs. I followed her into the bathroom and she uses apricot scrub on her face and her lips. She states "there is one my eye lash" and she peels it off and it is likely a piece of skin or dried matter from eye exudate. She identified various parasites where she calls parasites on her lips and inside of her mucous membrane on her mouth. This underwriter solicitation director informs her that these are likely canker sores or pieces of epidermis. The patient is tearful as underwriter solicitation director attempts to reframe her perceptions. She is agreeable to suggestion of second generation antipsychotic for both insomnia and to identify and to rule out hallucinations. PAST PSYCHIATRIC HISTORY: The patient was treated briefly for 1 day at [facility] in April of 2016. According to records, she had been out of insurance for approximately 1 month and had increasing panic and depressive symptoms. She was discharged the same day upon her request and agreement with her . She has a history of being treated with Zoloft and clonazepam by her primary care provider. She has a past diagnoses of major depressive disorder, panic disorder, generalized anxiety disorder and rule out PTSD. TRAUMA/ABUSE HISTORY: The patient found her after he attempted to kill himself approximately 6 years ago with an overdose on medications and alcohol. Their then 5-year-old son was with her when she found him. Her father in 2011 and she was holding him at the time. Her mother passed way in 2012 after significant bettencourt with cancer. She was very close to her parents. Her mother was a nurse on the psychiatric unit for many years. Her grandfather passed way in 2012. PAST MEDICAL HISTORY: Chronic knee pain and unspecified liver disease. She currently has significant lymphedema in her lower extremities. PAST SURGICAL HISTORY: . HOME MEDICATIONS: 1. Thiamin 100 mg daily. 2. Spironolactone 100 mg daily. 3. Sertraline 50 mg daily. 4. Potassium chloride 20 mEq daily. 5. Multivitamins daily. 6. Lactulose 5 mL p.o. b.i.d. 7. Lasix 400 mg b.i.d. 8. Folic acid 1 mg daily. 9. Subutex 2 mg sublingual q.a.m. 10. While on the fourth floor, she has also been receiving increased lactulose due to complaints of constipation. FAMILY PSYCHIATRIC HISTORY: Mother and father both have history of alcohol use. Cousin with trichotillomania. has been sober from alcohol for quite a few months after attending rehab this year. SOCIAL HISTORY: Gita grew up in [place] and has 1 sister. She has 2 sons, 12- year- old and 6-year-old and they are doing well in the [place] [employer]. Gita is currently unemployed. As stated above, she reports has been abstinent from alcohol since February. She smokes approximately 5 cigarettes per day. MENTAL STATUS EXAM: The patient is a 36-year-old female who is thin framed but noted to have significant abdominal distention and peripheral edema. She is disheveled wearing pink top without undergarments and hospital scrubs. She is pleasant and cooperative. She answers questions fully. She is alert and oriented x3. Her concentration is fair. Her memory is 3/3. Her mood is "fine ". Affect is full range. Speech is articulate, soft, normal rate, rhythm and volume. Thought process is circumstantial in regards to hallucinations. She has somewhat loose associations, but easily redirectable. Content of thought is negative for SI, HI or . She denies auditory hallucinations. She is preoccupied with current symptoms. Her insight is poor. Judgment is fair. Her fund of knowledge is otherwise excellent. ASSESSMENT: This is a 36-year-old female with liver disease of unknown etiology. She is presenting with visual or tactile hallucinations and is unclear if this in the context of liver or brain disease. She has a history of major depressive disorder and generalized anxiety disorder. There is potentially some PTSD symptoms going on as well. She is currently prescribed Zoloft through her primary care provider, Dr. Robertson, in [place]. RECOMMENDATIONS TO TEAM: Psychiatry suggests the trial of quetiapine 200 mg at bedtime to target insomnia and psychotic symptoms. If she tolerates this, this can be increased to 300 mg. The patient is medically clear and would like to be voluntarily admitted to the mental health unit. She can be offered voluntary admission. On-call psychiatrist will be notified of this consult and primary team can enter another consult if the patient wants to be admitted to the psychiatric unit. Otherwise, she is encouraged to follow up with her primary care provider and potentially outpatient mental health services or Neurology. Hepatic specialist would also be encouraged as tactile and visual hallucinations are usually medically or chemically involved. Thank you very much for opportunity to meet this interesting young woman. TIMUR ROBBINS NP [id number]/[facility] #: [id number] ELPIDIO
[2017-08-06] MEDS: Buprenorphine TAB* 2 MG TAB.SL SL SCH (07:51)
[2017-08-06] MEDS: Spironolactone TAB* 25 MG PO SCH (07:52)
[2017-08-06] MEDS: Folic Acid TAB* 1 MG PO SCH (07:52)
[2017-08-06] MEDS: Potassium Chlor TAB* 20 MEQ TAB.ER PO SCH (07:52)
[2017-08-06] MEDS: Furosemide TAB* 40 MG PO SCH (07:52)
[2017-08-06] MEDS: Multivitamins/Minerals TAB PO SCH (07:52)
[2017-08-06] MEDS: Thiamine TAB* 100 MG TAB PO SCH (07:52)
[2017-08-06] MEDS: Sertraline* 50 MG TAB PO SCH (07:52)
[2017-08-06 14:08] VITALS: BP 122/65
--- NOTE | 2017-08-07 02:31 | DS ---
CC: Patricio Robertson MD * DISCHARGE SUMMARY: DATE OF ADMISSION: 08/03/17 DATE OF DISCHARGE: 08/06/17 ADMISSION DIAGNOSES: 1. Choroid plexus hemorrhage. 2. Decompensated liver failure with coagulopathy. 3. Normocytic anemia. 4. Amenorrhea. 5. Proteinuria. DISCHARGE DIAGNOSES: 1. Choroid plexus hemorrhage. 2. Decompensated liver failure with coagulopathy. 3. Normocytic anemia. 4. Amenorrhea. 5. Proteinuria. 6. Depression, possibly posttraumatic stress disorder. 7. Generalized anxiety. HOSPITAL COURSE: The patient is a 36-year-old woman who presented to [facility] with a chief complaint that parasites were coming out of her entire body. The patient apparently also fell down the stairs. The patient was found to have a choroid plexus hemorrhage. This was discussed with Neurosurgery, who said no intervention was necessary. The patient was also found to be in decompensated liver failure with coagulopathy. It seems that she may have had a history of alcohol abuse, but this was unclear. The patient was observed for three days. The patient continued her concerns about worms coming out of her nose and eyes. A consultation was made with Psychiatry who though she had depressive disorder, generalized anxiety disorder, possibly PTSD. They said that she did not need involuntary admission, but could have voluntary admission to psych unit, she declined. The patient was put on Seroquel 200 mg, but this seemed too much for her. She was quite sleepy the next day, so we cut that in half. She had no incidents from the choroid plexus hemorrhage. So, she was stable for discharge on 08/06/17. She also had significant lymphedema in both of her legs and these were wrapped and she was told to follow up with her PCP concerning the same. Again, the patient had numerous concerns that may be related to both her alcohol abuse and mental illness that need to followed up on. Furthermore, she had a lump in her left breast which should be followed up on as she has never had a mammogram. She is only 36, however. Apparently, she states she has not had menses for a few years , so she should see [facility] concerning the same. PHYSICAL EXAMINATION: On the date of discharge, temperature 97.3 degrees, heart rate 104 beats per minute, respiratory rate 18 breaths per minute, pulse ox 100% on room air, blood pressure 122/65. HEENT: Normocephalic, atraumatic. Pupils equal, round, and reactive. Moist mucous membranes. Neck: Supple. No JVD, bruits, palpable thyroid, or lymphadenopathy. Chest: Clear to auscultation and percussion bilaterally. Cardiovascular Exam: S1 and S2 appreciated. Regular rate. Abdominal Exam: Positive bowel sounds in all 4 quadrants. Soft, nontender, and nondistended. Extremities: Bilateral lymphedema, right greater than left with dressings on both. Neuro: Alert and oriented x3. She moves all extremities. Skin: Only aforementioned lymphedema. No distinct rashes or abnormalities. STUDIES DONE WHILE IN THE HOSPITAL: Brain CT, 08/03/17. Impression: High attenuation lesion of the choroid plexus of the body of the right lateral ventricle. Given the history of trauma, this may represent choroid plexus hemorrhage though this is uncommon, this may represent a primary choroid plexus lesions including choroid plexus meningioma or adenoma. Additionally given the history of parasitic infection, neurocysticercosis is within the differential, although this is also considered less likely. Recommended attention on followup examination, consideration for contrast enhanced MRI of the brain in a non-acute setting. Brain MRI, 08/03/17, impression: Lesion over the right lateral ventricle. CT was suggestive of calcification rather than hemorrhage or proteinaceous fluid. There is no associated enhancement. This is of unclear etiology. Likely, history. Differential includes calcified xanthogranuloma, calcified choroid plexus neoplasm including meningioma, papilloma or ependymoma or dystrophic calcification including _. While the neurocysticercosis is on the differential, this is considered less likely given the absence of any other lesions in the brain. Periorbital soft tissue swelling. Recommended attention on followup imaging. DISCHARGE MEDICATIONS: 1. Folic acid 1 mg daily. 2. Potassium chloride 20 mEq daily. 3. Multivitamin 1 tablet daily. 4. Lactulose 15 cc twice daily. 5. Furosemide 40 mg twice daily. 6. Spironolactone 100 mg daily. 7. Subutex 2 mg sublingual q.a.m. 8. Thiamine 100 mg daily. 9. Sertraline 50 mg daily. 10. Quetiapine 100 mg daily. DISCHARGE PLAN: The patient will be discharged to home. Follow up with Dr. Robertson this week. Again, we recommend psychiatric followup. She should have followup with a mammogram considering her breast lump. She may benefit from followup imaging on her CAT scan. She should have followup labs considering she had numerous abnormalities including thrombocytopenia, proteinuria, anemia. The patient was also strongly encouraged to stop smoking. TIME SPENT: Over 50 minutes were spent on this discharge, more than 30 minutes of which was spent in direct [id number] contact with the patient in evaluation , physical exam, counseling, and coordination of care. [id number]/[facility] #: [id number] ELPIDIO
== END 2017-08-06 15:40 | disposition home or self-care (01) | DRG 55 ==
LOC: ED 13:08 → MED 18:09
PROVIDERS: ADMIT Internal Medicine; ATTEND Internal Medicine
DX: S06.360A Traumatic hemorrhage of cerebrum, unspecified, without loss of consciousness, initial encounter (principal); K83.1 Obstruction of bile duct; R18.8 Other ascites; D68.9 Coagulation defect, unspecified; D69.6 Thrombocytopenia, unspecified; Z82.5 Family history of asthma and other chronic lower respiratory diseases; Z80.52 Family history of malignant neoplasm of bladder; F17.210 Nicotine dependence, cigarettes, uncomplicated; H31.301 Unspecified choroidal hemorrhage, right eye; D64.9 Anemia, unspecified; N91.2 Amenorrhea, unspecified; R80.9 Proteinuria, unspecified; E11.9 Type 2 diabetes mellitus without complications; Z87.442 Personal history of urinary calculi; Z80.49 Family history of malignant neoplasm of other genital organs; Z83.3 Family history of diabetes mellitus; Z81.8 Family history of other mental and behavioral disorders; R40.2412 Glasgow coma scale score 13-15, at arrival to emergency department; W10.9XXA Fall (on) (from) unspecified stairs and steps, initial encounter; Y92.9 Unspecified place or not applicable; K72.90 Hepatic failure, unspecified without coma; R44.1 Visual hallucinations; N63 Unspecified lump in breast; F41.0 Panic disorder [episodic paroxysmal anxiety]; F41.1 Generalized anxiety disorder; G89.29 Other chronic pain; M25.569 Pain in unspecified knee; I89.0 Lymphedema, not elsewhere classified; Z81.1 Family history of alcohol abuse and dependence; F43.10 Post-traumatic stress disorder, unspecified; F32.9 Major depressive disorder, single episode, unspecified
CPT/HCPCS: 36415; 70450; 70553; 80053; 80307; 80320; 81003; 81015; 82140; 83605; 84484; 84702; 85025; 85610; 87086; A9270-GY; A9579; G0480

== ENCOUNTER 2020-02-07 10:33 | Inpatient (IN) | payer SELFPAY ==
--- NOTE | 2020-02-07 10:46 | ED ---
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 No abdominal pain. Patient has not been feeling well for the last 5 days per EMS. EMS noted patient to be cold, diaphoretic, pale, short of breath, tachycardic. EMS noticed half empty bottle of ibuprofen next to patient's bed. Patient ingested about 60 tablets in the last 3 days. IV established and patient given fluids and Zofran. Respiration in high 30s initially. She was placed on supplemental nasal cannula oxygen with improvement in respiration. EMS notes improvement in skin color as well. Symptoms aggravated by nothing. Symptoms alleviated by fluids, Zofran, supplemental oxygen. No cardiac hx. Medications reviewed. She does not take Tylenol or aspirin. No GI FHx. - History Of Current Complaint Hx Obtained From: Patient, EMS Onset/Duration: Lasting Hours, Lasting Days, Still Present Timing: Constant Aggravating Factor(s): Nothing Alleviating Factor(s): fluids, Zofran, supplemental oxygen - Allergies/Home Medications Allergies/Adverse Reactions: Allergies Allergy/AdvReac Type Severity Reaction Status Date / Time No Known Allergies Allergy Verified 08/03/17 13:12 Home Medications: Home Medications Folic Acid TAB* [Folvite TAB*] 1 mg PO DAILY #30 tab 03/02/17 [Rx Confirmed ] Multivitamins/Minerals TAB* [Theragran/minerals TAB*] 1 tab PO DAILY tab [Rx Confirmed 02/07/20] Thiamine TAB* [Vitamin B-1 TAB 100 MG*] 100 mg PO DAILY #30 tab 03/02/17 [Rx Confirmed 02/07/20] Buprenorphine TAB* [Subutex TAB*] 2 mg SL QAM 04/27/17 [History Confirmed ] Spironolactone TAB* [Aldactone TAB 25 MG*] 100 mg PO DAILY 08/03/17 [History Confirmed 02/07/20] Ascorbic Acid TAB* [Vitamin C TAB*] 500 mg PO DAILY 02/07/20 [History Confirmed 02/07/20] Cyanocobalamin TAB* [Vitamin B12 TAB*] 500 mcg PO DAILY 02/07/20 [History Confirmed 02/07/20] Ibuprofen TAB* [Motrin TAB* 800 MG] 800 mg PO Q8H PRN 02/07/20 [History Confirmed 02/07/20] Iron Ps Complex/B12/Folic Acid [Poly-Iron 150 Forte] 1 cap PO DAILY 02/07/20 [ History Confirmed 02/07/20] L.acidoph,Paracasei, B.lactis [Probiotic] 1 each PO DAILY 02/07/20 [History Confirmed 02/07/20] Lactulose* 15 ml PO EVERY OTHER DAY 02/07/20 [History Confirmed 02/07/20] Magnesium Oxide TAB* [MagOx 400 TAB*] 400 mg PO DAILY 02/07/20 [History Confirmed 02/07/20] Methylsulfonylmethane [MSM] 1,000 mg PO DAILY 02/07/20 [History Confirmed ] Niacin ER CAP* [Niaspan ER CAP*] 500 mg PO DAILY 02/07/20 [History Confirmed ] Oregano Oil [Oil of Oregano] 1,500 mg PO DAILY 02/07/20 [History Confirmed 02/06] Reishi Mushroom Extract 1 dose PO .TAKE DIRECTED 02/07/20 [History Confirmed 02/07/20] Sertraline* [Zoloft*] 150 mg PO DAILY 02/07/20 [History Confirmed 02/07/20] Ubidecarenone [Coq-10] 30 mg PO DAILY 02/07/20 [History Confirmed 02/07/20] PMH/Surg Hx/FS Hx/Imm Hx Endocrine/Hematology History: Reports: Hx Diabetes Denies: Hx Thyroid Disease Cardiovascular History: Denies: Hx Hypertension, Hx Pacemaker/ICD Respiratory History: Denies: Hx Asthma, Hx Chronic Obstructive Pulmonary Disease (COPD) GI History: Reports: Other GI Disorders - ascites, liver failure History: Reports: Hx Kidney Stones - with stenting Psychiatric History: Reports: Hx Anxiety, Hx Depression, Hx Substance Abuse - ETOH - Surgical History Surgery Procedure, Year, and Place: KIDNEY STENTS, C SECTION Infectious Disease History: Reports: Hx Shingles Denies: Hx Hepatitis, Hx Human Immunodeficiency Virus (HIV) - Family History Known Family History: Positive: Hypertension, Diabetes, Other - depression, no liver disease Negative: Cardiac Disease Family History: NEG GI FHx - Social History Alcohol Use: None Alcohol Amount: denies Hx Substance Use: Yes Substance Use Type: Reports: Prescribed Substance Use Comment - Amount & Last Used: suboxone- currently denies Hx Tobacco Use: Yes Smoking Status (MU): Light Every Day Tobacco Smoker Type: Cigarettes Amount Used/How Often: 1/2ppd Have You Smoked in the Last Year: Yes Review of Systems Positive: Chills, Skin Diaphoresis, Other - pale Positive: Other - tachycardic Positive: Shortness Of Breath Positive: Other - blood in stool, hematemesis. Negative: Abdominal Pain All Other Systems Reviewed And Are Negative: Yes Physical Exam - Summary Physical Exam Summary: Constitutional: Ill-appearing, Alert. (-) Distressed Skin: Diaphoretic, pale; macerated and weeping skin of the bilateral lower extremities HENT: Normocephalic; Atraumatic Eyes: Conjunctiva normal Neck: Musculoskeletal ROM normal neck. (-) JVD, (-) Stridor, (-) Nuchal rigidity Cardio: Rhythm regular, tachycardic, Heart sounds normal; Intact distal pulses; Radial pulses are 2+ and symmetric. (-) Murmur Pulmonary/Chest wall: Effort normal. (-) Respiratory distress, (-) Wheezes, (-) Rales Abd: Soft, (-) tenderness, (-) Distension, (-) Guarding, (-) Rebound Rectal exam chaperoned by Yumiko ALMEIDA: Melanotic stools Musculoskeletal: (-) Edema Lymph: (-) Cervical adenopathy Neuro: Alert, Oriented x3 Psych: Mood and affect Normal Triage Information Reviewed: Yes Vital Signs Reviewed: Yes Procedures - Sedation Patient Received Moderate/Deep Sedation with Procedure: No Diagnostics - Laboratory Result Diagrams: 02/07/20 11:45 02/07/20 11:06 Lab Statement: Any lab studies that have been ordered have been reviewed, and results considered in the medical decision making process. - Radiology CXR Radiology Interpretation Completed By: Radiologist - IMPRESSION: TIP IN THE SUPERIOR VENA CAVA. NO PNEUMOTHORAX IS NOTED. ED physician has reviewed this imaging report. Re-Evaluation - Re-Evaluation First Eval Re-Evaluation Time: 11:22 Change: Worse - patient is hypotensive. 3rd liter of fluids given. Second Eval Re-Evaluation Time: 11:46 Change: Unchanged - Dr. Amin here to see patient Complex Multi-Symp Course/Dx Course Of Treatment: 39 y/o F p/w GIB. - on arrival the ED, patient diaphoretic and pale. Melena on exam. Patient given 2 L of fluid, 2 large- bore IVs are in place from EMS. Type and cross sent. Hemoglobin 3.0. GI consulted and agreed with plan including Protonix and octreotide. ICU consultation for admission. ICU place central line. Patient was briefly placed on peripheral vasopressin while awaiting blood products. Patient transfuse 2 units of blood. Patient had large bloody bowel movement while in ED. Given vanc for LE wounds - Diagnoses Provider Diagnoses: GI bleed, Anemia, Wound of lower extremity - Physician Notifications Discussed Care Of Patient With: Laverntl Johnson - She agrees to admit. Time Discussed With Above Provider: 11:32 - Critical Care Time Critical Care Time: 30-74 min - Upon my evaluation, this patient had a high probability of imminent or life-threatening deterioration due to anemia, shock which required my direct attention, intervention, and personal management. I have personally provided 75 minutes of critical care time exclusive of time spent on separately billable procedures. Time includes review of laboratory data , radiology results, discussion with consultants, and monitoring for potential decompensation. Interventions were performed as documented above. Discharge ED - Sign-Out/Discharge Documenting (check all that apply): Patient Departure - Discharge Plan Condition: Stable Disposition: ADMITTED TO [facility] Referrals: Patricio Robertson MD [Primary Care Provider] - - Billing Disposition and Condition Condition: STABLE Disposition: Admitted to [facility] - Attestation Statements Document Initiated by Carolannibe: Yes Documenting Scribe: Smiley Jj Provider For Whom Deepak is Documenting (Include Credential): Baltazar Marsh MD Scribe Attestation: I, Smiley Jj, scribed for Baltazar Marsh MD on 02/07/20 at 1355. Scribe Documentation Reviewed: Yes Provider Attestation: The documentation as recorded by the Smiley levin accurately reflects the service I personally performed and the decisions made by me, Baltazar Marsh MD Status of Scribe Document: Viewed
[2020-02-07] MEDS ORDERED: Vancomycin(*) 2,000 MG in NS 0.9% 500 ML* 500 ML IVPB ONE (11:22)
[2020-02-07] MEDS ORDERED: Pantoprazole IV* 40 MG IV ONE (11:25)
[2020-02-07] MEDS ORDERED: NS 0.9% 1000 ML** 1,000 ML IV ONE ×2 (11:26→11:38)
[2020-02-07 11:32] LABS: Hematocrit 10 % (35-47); Mean Corpuscular HGB Conc 31 g/dL (31-36); Mean Corpuscular Hemoglobin 31 pg (27-31); Mean Corpuscular Volume 101 fL (80-97); Mean Platelet Volume 8.7 fL (7.4-10.4); Platelet Count 476 10^3/uL (150-450); Red Blood Count 0.95 10^6 /uL (3.70-4.87); Red Cell Distribution Width 15 % (10-15); White Blood Count 27.5 10^3/uL (3.5-10.8)
[2020-02-07] MEDS ORDERED: Pantoprazole* 80 mg IN NS 80 MG/250 ML BAG IV ONE (11:35)
[2020-02-07 11:36] LABS: INR 1.46 (0.82-1.09)
[2020-02-07 11:39] LABS: ALT 11 U/L (7-52); AST 18 U/L (13-39); Albumin 2.1 g/dL (3.2-5.2); Albumin/Globulin Ratio 0.8 (1-3); Alkaline Phosphatase 57 U/L (34-104); BUN/Creatinine Ratio 30.2 (8-20); Blood Urea Nitrogen 39 mg/dL (6-24); Calcium 7.5 mg/dL (8.6-10.3); Chloride 109 mmol/L (101-111); EGFR African American 55.4 (>60); EGFR Non-African American 45.8 (>60); Globulin 2.7 g/dL (2-4); Glucose 286 mg/dL (70-100); Potassium 3.3 mmol/L (3.5-5.0); Sodium 137 mmol/L (135-145); Total Protein 4.8 g/dL (6.4-8.9)
[2020-02-07 11:45] LABS: Anion Gap 21 mmol/L (2-11); CO2 Carbon Dioxide 7 mmol/L (22-32)
[2020-02-07 11:50] LABS: ABS Basophils 0.2 10^3/ul (0-0.2); ABS Eosinophils 0.1 10^3/ul (0-0.6); ABS Lymphocytes 3.6 10^3/ul (1.0-4.8); ABS Monocytes 0.7 10^3/ul (0-0.8); ABS Nucleated RBC 0.3 10^3/ul; Eosinophil % 0.5 %; Lymphocyte % 12.9 %
[2020-02-07 11:51] LABS: Polychromasia 2+
[2020-02-07 11:56] LABS: Acetaminophen < 15 mcg/mL; Salicylate < 2.50 mg/dL (<30)
[2020-02-07 11:59] LABS: Hematocrit 10 % (35-47); Hemoglobin 2.9 g/dL (12.0-16.0)
[2020-02-07] MEDS ORDERED: Norepinephrine 16MCG/ML IVPRE* 4,000 MCG/250 ML BAG IV SCH (12:00)
[2020-02-07] MEDS ORDERED: Octreotide Acetate* 50 MCG in NS 0.9% 50 ML* 50 ML IV ONE (12:39)
[2020-02-07] MEDS ORDERED: Octreotide Acetate* 500 MCG in NS 0.9% 100 ML* 100 ML IV SCH (13:00)
[2020-02-07] MEDS: Octreotide Acetate* 500 MCG in NS 0.9% 100 ML* 100 ML IV SCH ×2 (14:07→21:45)
[2020-02-07 15:29] LABS: Hematocrit 13 % (35-47); Hemoglobin 3.9 g/dL (12.0-16.0); Mean Corpuscular HGB Conc 31 g/dL (31-36); Mean Corpuscular Hemoglobin 29 pg (27-31); Mean Corpuscular Volume 93 fL (80-97); Mean Platelet Volume 7.9 fL (7.4-10.4); Platelet Count 461 10^3/uL (150-450); Red Blood Count 1.37 10^6 /uL (3.70-4.87); Red Cell Distribution Width 15 % (10-15); White Blood Count 42.5 10^3/uL (3.5-10.8)
[2020-02-07] MEDS: Lactated Ringers 1000 ML Bag* 1,000 ML IV SCH (15:37)
[2020-02-07 15:40] LABS: BUN/Creatinine Ratio 30.7 (8-20); EGFR African American 56.4 (>60); EGFR Non-African American 46.6 (>60); Magnesium 1.9 mg/dL (1.9-2.7); Phosphorus 4.9 mg/dL (2.5-5.0); Potassium 3.5 mmol/L (3.5-5.0)
--- NOTE | 2020-02-07 17:26 | CONS ---
CC: Dr. Patricio Robertson * CONSULTATION REPORT: DATE OF CONSULT: 02/07/20 PRIMARY CARE PHYSICIAN: Dr. Patricio Robertson. INDICATION FOR CONSULT: Acute blood loss anemia, hematemesis, hemorrhagic shock. REQUESTING: Dr. Marsh. HISTORY OF PRESENT ILLNESS: This is a 39-year-old female with a past medical history of alcoholism, who presented to the emergency room with dyspnea, shortness of breath, melena, and hematemesis. She states for the last 3 to 4 days she has had black in her stool. She has chronic sores on her legs for which she has been taking additional ibuprofen. She states that she has taken about 60 tablets over the last 3 to 4 days. She has a history of extensive alcoholism. She quit in 2016 and then about 6 to 7 months later returned to drinking about 2 to 3 beers nightly per patient. She denies any additional hard liquor. She admits to some abdominal distention and swelling in her legs and again the chronic aforementioned sores of her legs. She has conversational dyspnea during the interview and denies any weight loss or weight gain. She has never had an endoscopic procedure. Denies any family history of GI or liver problems. The remainder of the 14 point review of systems were grossly negative except for as described in the HPI. PAST MEDICAL HISTORY: Alcoholism, hepatic insufficiency. HOME MEDICATIONS: 1. Ibuprofen in excess. 2. Folic acid. 3. Multivitamin. 4. Thiamine. 5. Subutex. 6. Spironolactone 25 mg. 7. Ascorbic acid. 8. Vitamin B12. 9. Iron. 10. Acidophilus. 11. Lactulose. 12. Magnesium oxide. 13. Niacin. 14. Oregano oil. 15. Mushroom extract. 16. Sertraline. 17. Coenzyme Q10. ALLERGIES: No known drug allergies. FAMILY HISTORY: Denies any family history of liver disease or GI diagnoses. SOCIAL HISTORY: Lives at home with . Active alcohol use with about 2 beers a day. Active tobacco abuse. Denies any IV drug use or other illicit substances. REVIEW OF SYSTEMS: Remainder of the 14 point review of systems grossly negative except for as described in the HPI. PHYSICAL EXAMINATION: Vital Signs: Blood pressure is 52/38, pulse 95, respiratory rate is 20. She is 100% on 5 L. Temperature is 96.1. In general, chronically ill appearing, dyspneic. HEENT: Atraumatic, normocephalic. Pupils equal, round, and reactive to light. Extraocular movements are intact. Conjunctiva are pale. Cardiovascular: Tachycardic, S1 S2. Respiratory: Diminished at the base bilaterally. Abdomen: Distended. Bowel sounds positive. Can appreciate some shifting dullness. Extremities: Bilateral weeping of the skin on the lower extremities. DIAGNOSTIC STUDIES/LAB DATA: Hemoglobin 2.9, WBC count 27.5, platelet count 476 , however, prior visit show a typical platelet count around 104. INR 1.46. Potassium 3.3, carbon dioxide 7, BUN 39, creatinine 1.29. Tylenol less than 15. IMPRESSION: A 49-year-old female with hemorrhagic shock. 1. Hemorrhagic shock. She will be transferred to the ICU. Media Supervisor team is working up to achieve hemodynamic stability. From a GI perspective, we can check H and H every 6 hours, keep at least 2 units of PRBCs on hold, transfuse as needed to achieve a hemoglobin of 7 per open hearth helper team. We will start the patient on pantoprazole drip with an 80 mg IV bolus along with an octreotide drip given her history of thrombocytopenia and liver disease in the past. With a hemoglobin of 2.9 and her current vital signs, unable to safely perform endoscopy. The patient needs to be hemodynamically resuscitated; when that is achieved, can consider upper endoscopy at that time. Differentials include ulcer and variceal bleeding. Contact GI service if change in patient condition or when hemodynamic stability has been achieved. 2. History of alcohol abuse, possible cirrhosis. She will need further evaluation once stabilized. The patient was seen and examined in the emergency room at noon today. [id number]/[facility] #: [id number] [facility]ENT[facility]ikram
--- NOTE | 2020-02-07 18:04 | HP ---
History of Present Illness - History of Present Illness Reason for Visit: hematemesis and bloody stool History of Present Illness: Gita Martinez is a 39 y/o female with history of unspecified liver disease, depression, anxiety, bilateral leg ulcer with chronic leg pain, "Morgellons disease", presented to [facility] melena and hematemesis for 4 days. She started to have vomiting with dark brown emesis since this Tuesday, she also noticed that she turned more lightheaded to the point that she couldn't get up. She also noticed dark brown stool the whole week. She has been taking ibuprofen for her chronic leg pain with non healing wound for almost 1 year, initially she was taking only a few pills of ibuprofen daily, but recently with the worsening of leg pain, she was taking about 60 pills in the past few days to help with the pain. She had a history of opioid dependence for which it took her long time to recover, therefore she didn't want to touch opioid again. She was noticed to be cold, diaphoretic, pale, short of breath, tachycardic on arrival in ED, found to have Hb 3.0. She received 2L of IV fluid bolus, and 4U of PRBC. She was placed a right IJ central line as well, and she required levophed for BP support. - Past Medical History Past Medical History: 1. 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 2. Depression 3. Anxiety 4. 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 OA 6. History of alcohol abuse, in remission, drinking 2 cans of beer now 7. History of opioid dependence ([id number]), in remission 8. History of cholestasis x2 in - Past Surgical History Past Surgical History: Kidney stent C- section - Past Family History Past Family History: History of depression in family, no history of liver disease, or GI disorder in family. - Past Social History Past Social History: Works in [employer] in [place]. Lost insurance recently thus delayed in seeking medical care this time. Stays with his Hu and his two son, 7 years old and 15 years old. His Hu is his health care proxy. She would like full code. Medications: Home Medications Medication Instructions Recorded Confirmed Type Folic Acid TAB* [Folvite TAB*] 1 mg PO DAILY #30 tab 03/02/17 02/07/20 Rx Multivitamins/Minerals TAB* 1 tab PO DAILY tab 03/02/17 02/07/20 Rx [Theragran/minerals TAB*] Thiamine TAB* [Vitamin B-1 TAB 100 100 mg PO DAILY #30 tab 03/02/17 02/07/20 Rx MG*] Buprenorphine TAB* [Subutex TAB*] 2 mg SL QAM 04/27/17 02/07/20 History Spironolactone TAB* [Aldactone TAB 100 mg PO DAILY 08/03/17 02/07/20 History 25 MG*] Ascorbic Acid TAB* [Vitamin C 500 mg PO DAILY 02/07/20 02/07/20 History TAB*] Cyanocobalamin TAB* [Vitamin B12 500 mcg PO DAILY 02/07/20 02/07/20 History TAB*] Ibuprofen TAB* [Motrin TAB* 800 MG] 800 mg PO Q8H PRN 02/07/20 02/07/20 History Iron Ps Complex/B12/Folic Acid 1 cap PO DAILY 02/07/20 02/07/20 History [Poly-Iron 150 Forte] L.acidoph,Paracasei, B.lactis 1 each PO DAILY 02/07/20 02/07/20 History [Probiotic] Lactulose* 15 ml PO EVERY OTHER DAY 02/07/20 02/07/20 History Magnesium Oxide TAB* [MagOx 400 400 mg PO DAILY 02/07/20 02/07/20 History TAB*] Methylsulfonylmethane [MSM] 1,000 mg PO DAILY 02/07/20 02/07/20 History Niacin ER CAP* [Niaspan ER CAP*] 500 mg PO DAILY 02/07/20 02/07/20 History Oregano Oil [Oil of Oregano] 1,500 mg PO DAILY 02/07/20 02/07/20 History Reishi Mushroom Extract 1 dose PO .TAKE DIRECTED 02/07/20 02/07/20 History Sertraline* [Zoloft*] 150 mg PO DAILY 02/07/20 02/07/20 History Ubidecarenone [Coq-10] 30 mg PO DAILY 02/07/20 02/07/20 History Allergies/Adverse Reactions: Allergies Allergy/AdvReac Type Severity Reaction Status Date / Time No Known Allergies Allergy Verified 08/03/17 13:12 Review of Systems - Review of Systems Constitutional: Positive: Weakness, Malaise Eyes: Negative: Pain, Vision Change, Conjunctivae Inflammation, Eyelid Inflammation, Redness, Other ENT: Negative: Ear Pain, Ear Discharge, Nose Pain, Nose Discharge, Nose Congestion, Mouth Pain, Mouth Swelling, Throat Pain, Throat Swelling, Other Respiratory: Positive: Hemoptysis Cardiovascular: Positive: Light Headedness Gastrointestinal: Positive: Vomiting, Melena Genitourinary: Negative: Dysuria, Frequency, Incontinence, Hematuria, Retention , Other Musculoskeletal: Positive: Leg Pain Skin: Positive: Other - bilateral leg chronic ulcer Neurological/Mental Status: Negative: Weakness, Numbness, Incoordination, Change in Speech, Confusion, Seizures, Other Exam Vital Signs: Vital Signs (72 hours) 02/07/20 02/07/20 02/07/20 10:46 10:51 11:03 Temperature 96.1 F Pulse Rate 109 106 103 Respiratory 25 27 23 Rate Blood Pressure 114/36 114/36 (mmHg) O2 Sat by Pulse 96 94 100 Oximetry 02/07/20 02/07/20 02/07/20 11:17 11:18 11:22 Temperature Pulse Rate 97 99 95 Respiratory 22 25 26 Rate Blood Pressure 66/27 82/28 102/41 (mmHg) O2 Sat by Pulse 100 100 100 Oximetry 02/07/20 02/07/20 02/07/20 11:27 11:32 11:35 Temperature Pulse Rate 90 96 92 Respiratory 20 24 22 Rate Blood Pressure 81/22 74/28 (mmHg) O2 Sat by Pulse 100 100 92 Oximetry 02/07/20 02/07/20 02/07/20 11:36 11:42 11:47 Temperature Pulse Rate 93 96 95 Respiratory 22 20 23 Rate Blood Pressure 75/32 84/57 (mmHg) O2 Sat by Pulse 94 100 94 Oximetry 02/07/20 02/07/20 02/07/20 11:52 11:57 11:58 Temperature Pulse Rate 95 101 101 Respiratory 22 22 22 Rate Blood Pressure 58/34 106/51 (mmHg) O2 Sat by Pulse 96 96 92 Oximetry 02/07/20 02/07/20 02/07/20 12:00 12:02 12:03 Temperature Pulse Rate 100 95 96 Respiratory 20 20 21 Rate Blood Pressure 52/38 (mmHg) O2 Sat by Pulse 90 100 89 Oximetry 02/07/20 02/07/20 02/07/20 12:06 12:12 12:18 Temperature Pulse Rate 93 99 104 Respiratory 15 22 20 Rate Blood Pressure 82/28 69/45 91/39 (mmHg) O2 Sat by Pulse 100 96 93 Oximetry 02/07/20 02/07/20 02/07/20 12:22 12:27 12:32 Temperature Pulse Rate 105 108 102 Respiratory 19 17 Rate Blood Pressure 125/56 132/44 130/48 (mmHg) O2 Sat by Pulse 94 92 95 Oximetry 02/07/20 02/07/20 02/07/20 12:37 12:42 12:47 Temperature Pulse Rate 102 104 104 Respiratory Rate Blood Pressure 141/50 130/66 130/69 (mmHg) O2 Sat by Pulse 93 94 94 Oximetry 02/07/20 02/07/20 02/07/20 12:52 12:57 13:00 Temperature Pulse Rate 105 109 108 Respiratory Rate Blood Pressure 113/54 113/77 (mmHg) O2 Sat by Pulse 93 93 92 Oximetry 02/07/20 02/07/20 02/07/20 13:02 13:07 13:12 Temperature Pulse Rate 106 106 116 Respiratory Rate Blood Pressure 118/54 137/55 126/71 (mmHg) O2 Sat by Pulse 95 100 100 Oximetry 02/07/20 02/07/20 02/07/20 13:18 13:23 13:27 Temperature Pulse Rate 118 112 111 Respiratory Rate Blood Pressure 75/60 95/74 116/74 (mmHg) O2 Sat by Pulse 100 100 100 Oximetry 02/07/20 02/07/20 02/07/20 13:32 13:37 13:42 Temperature Pulse Rate 102 94 94 Respiratory Rate Blood Pressure 118/47 114/43 97/38 (mmHg) O2 Sat by Pulse 100 100 100 Oximetry 02/07/20 02/07/20 02/07/20 13:47 13:52 13:57 Temperature Pulse Rate 95 98 96 Respiratory Rate Blood Pressure 114/49 100/66 107/51 (mmHg) O2 Sat by Pulse 100 100 100 Oximetry 02/07/20 02/07/20 02/07/20 14:00 14:02 14:08 Temperature Pulse Rate 96 97 99 Respiratory Rate Blood Pressure 113/53 109/44 (mmHg) O2 Sat by Pulse 100 100 98 Oximetry 02/07/20 02/07/20 02/07/20 14:12 14:17 14:22 Temperature Pulse Rate 96 97 94 Respiratory Rate Blood Pressure 103/54 91/57 105/72 (mmHg) O2 Sat by Pulse 100 100 97 Oximetry 02/07/20 02/07/20 02/07/20 14:27 14:30 14:32 Temperature Pulse Rate 92 94 92 Respiratory Rate Blood Pressure 103/47 118/48 (mmHg) O2 Sat by Pulse 100 100 100 Oximetry 02/07/20 02/07/20 02/07/20 14:42 15:00 15:05 Temperature 98.1 F 98.3 F Pulse Rate 94 112 109 Respiratory 16 17 Rate Blood Pressure 121/47 130/72 130/72 (mmHg) O2 Sat by Pulse 97 98 99 Oximetry 02/07/20 02/07/20 02/07/20 15:15 15:30 15:45 Temperature Pulse Rate 102 101 104 Respiratory 18 19 21 Rate Blood Pressure 117/71 122/74 130/89 (mmHg) O2 Sat by Pulse 100 100 100 Oximetry 02/07/20 02/07/20 02/07/20 16:00 16:15 16:30 Temperature 98.3 F Pulse Rate 103 106 96 Respiratory 14 19 18 Rate Blood Pressure 115/72 131/57 120/72 (mmHg) O2 Sat by Pulse 100 100 100 Oximetry 02/07/20 02/07/20 16:45 17:00 Temperature Pulse Rate 94 92 Respiratory 20 17 Rate Blood Pressure 133/70 123/78 (mmHg) O2 Sat by Pulse 100 100 Oximetry Exam: Constitutional: obese habitus, pale looking, awake, alert, no longer in distress after transfusion Head: normocephalic, atraumatic Eyes: no pallor, no icterus ENT: moist mucous membranes Neck: soft, supple, no jvd, no stridor CVS: normal rate, regular, no murmur Chest/Resp: bilateral air entry, no rhales, no wheeze, no rhonchi, no acc muscle use Abdomen/GI: soft, nontender, nondistended, BS+ Ext/Msk: cold, pulses+, no edema Skin: superficial weeping ulcer in bilateral lower legs, no surrounding erythema or swelling Neuro: awake, alert, orientedx3, moving all extremities, no gross focal deficit Psych: normal affect Result Diagrams: 02/07/20 18:15 02/07/20 15:16 Diagnostic Imaging: CXR: central line in situ, tip in superior vena cava. EKG Data: Tele: normal sinus rhythm ,HR 87 Assessment/Plan - Assessment/Plan Assessment: Gita Martinez is a 39 y/o female with history of unspecified liver disease, depression, anxiety, bilateral leg ulcer with chronic leg pain, "Morgellons disease", presented to [facility] for melena and hematemesis for 4 days after taking significant amount of ibuprofen, found to be hypotensive with Hb 3.0. Patient is currently in hemorrhagic shock, she will be admitted to ICU for stabilization. She was seen by gastrenterologist in ED who would like her to get hemodynamically stablized and reach Hb 7 for endoscopy. Plan: 1. Hemorrhagic shock due to GI bleed - Patient has been stablized hemodynamically with PRBC and crystalloid resucitation - keep npo - Will continue transfusion, target Hb 7 - FFP was also given in view of her underlying liver disease and coagulopathy - check H&H every 6 hours - iv PPI continuous and IV octreotide - in terms of source of bleeding, likely upper GI, PUD due to ibuprofen vs variceal bleeding - gastroenterology on board, will consider scope tomorrow after patient stablized - keep MAP>65 2. Leukocytosis - no fever, no infective symptoms - could be reactive due to significant GI bleed - one dose of vanco was given in ED - if patient spikes fever, will culture and cover with abx 3.JULIO with high AG metabolic acidosis - Due to volume depletion and organ hypoperfusion - continue to monitor and recheck 4. Possible underlying liver cirrhosis - unclear the etiology of her liver disease - liver enzyme normal, low albumin - will do further workup when patient stablized 5. Lower extremity wound - likely venous ulcer - will get wound consult 6. Psy issues - patient had depression, anxiety on Zoloft - no suicidal ideation, stable mood - social service assistant consult for insurance problem 7. DVT prophylaxis - SCD due to GI bleeding Attestation Documenting Resident: Angelica Peacock Supervising Physician: Lavern Johnson Attending/Supervising Physician Comment: Gita Martinez is a 39 year-old woman with a history of depression, anxiety, and possible liver disease who was brought to the ED for upper and lower GI bleed. The patient reports that she takes about 60 pills of ibuprofen each day for leg pain due to chronic wounds. She has been taking that amount of ibuprofen for a couple of years. However, she started to have hematemesis and bloody stools a couple of days ago. She denies chest pain, shortness of breath, or abdominal pain. Her appetite has not been as good recently, but she was still eating and weight has been stable. She was brought to the ED today for profuse bleeding. In the ED, hgb was 3, and she was hypotensive. Levophed was started. She was given 2L of crystalloid and 2 units of blood were ordered. 1 dose of vancomycin was given for BLE wounds. The patient denies any specific medical problems. She says about 3 years ago she was drinking maybe 1/2 bottle of vodka in addition to beer each day and developed liver failure. However, she reports her lab work normalized, and she was not told that she has persistent disease. She never had a liver biopsy. She continues to drink about 2 beers a night. She previously had a "problem with narcotics." The patient denies taking any narcotics for the past few years. She was on suboxone but when she lost her insurance, she stopped taking it. She was taking ibuprofen instead for leg pain due to chronic wounds of BLE. She had been followed by the wound clinic but again when she lost her insurance, she stopped going. She reports that she has been using a home salve made of crushed mustard seed, turmeric, and Vicks ointment. She feels the wounds are actually much better now than before. She has some difficulty walking due to pain but was able to walk to work. She reports there was a significant amount of clear, yellow drainage from the wounds. On exam, the patient is hypotensive and pale. She was awake, alert, oriented x3. Abdomen was soft and nontender. There are chronic wounds of the distal BLE with fibrinous material. There was no surrounding erythema although the skin had what appeared to be venous stasis changes. No fluctuance. There was clear fluid draining. IMPRESSION: 39F with GI bleed, likely upper GI due to NSAID use. GI bleed, likely upper Hemorrhagic shock due to GI bleed Metabolic acidosis JULIO due to hypovolemia Hypokalemia Chronic lower extremity wounds Depression Anxiety H/o opioid dependence H/o alcohol abuse H/o liver failure PLAN: Resuscitating with RBC and plasma. Anticipate levophed will be weaned off after transfusions. Goal MAP >65 GI is following, likely plan for scope tomorrow after resuscitated. Check H&H q6h. Goal Hgb >7. Check coags in AM. NPO. Protonix and octreotide infusions. Treat pain with Tylenol or tramadol for severe pain. Will try to avoid opioids if possible given h/o dependence. Wound consult for BLE wounds. No obvious infection. Will hold off on antibiotics and continue to monitor. Social work consulted since patient is uninsured. Critical care time: 50 min exclusive of teaching and procedures. Attestation: This service has been performed in part by a resident under the direction of a teaching physician.I, Lavern Johnson, performed the service, or was physically present during the critical, or escudero portions of the service, furnished by the resident. I participated in the management of the patient.
[2020-02-07] MEDS ORDERED: oxyCODONE TAB* 5 MG TAB PO PRN ×2 (18:12)
[2020-02-07 18:32] LABS: Hematocrit 14 % (35-47); Hemoglobin 4.4 g/dL (12.0-16.0)
[2020-02-07] MEDS: Pantoprazole* 80 mg IN NS 80 MG/250 ML BAG IV SCH (21:45)
--- NOTE | 2020-02-07 21:53 | OP ---
Operative Report - Blank - Operative Report Date of Operation: 02/07/20 Note: PRE-OP DX: Hemorrhagic shock due to GI bleed POST-OP DX: Same PROCEDURE: Placement of R IJ central line SURGEON: Lavern Johnson MD TANK BUILDER SUPERVISOR: Angelica Peacock MD ANESTHESIA: Lidocaine 1% EBL: Minimal INDICATION: Gita Martinez is a 39 year-old woman who presented with hemorrhagic shock due to GI bleed. Central line was discussed with the patient due to the need for vasopressor and multiple infusions. Due to the critical situation, verbal consent was obtained from the patient. DESCRIPTION: A time out was called confirming the patient's name, date of , and procedure. The patient was placed in Trendelenberg position. The right neck and upper chest were prepped and draped in the usual sterile fashion. Lidocaine was injected below the clavicle. I attempted to cannulate the right subclavian vein with the needle, but was unsuccessful. The ultrasound was draped with a sterile cover. The right internal jugular vein was easily found with ultrasound. Lidocaine was infected into the skin over the right internal jugular vein. The vein was cannulated under ultrasound guidance. The wire was placed through the needle, and the needle removed. The skin was dilated and the catheter placed into the vein using Seldinger technique. The catheter was advanced to 16 cm at the skin. The catheter was secured in place with 3-0 silk sutures. A biopatch was placed, and a sterile dressing placed. The patient tolerated the procedure well. CXR showed the line in the SVC without complication.
[2020-02-07] MEDS: traMADol TAB* 50 MG PO PRN (23:32)
[2020-02-08 00:10] LABS: Hematocrit 19 % (35-47); Hemoglobin 6.1 g/dL (12.0-16.0)
[2020-02-08] MEDS: Acetaminophen TAB* 325 MG PO PRN (01:11)
[2020-02-08] MEDS: Morphine INJ* 2 MG/ML 1 ML SYRINGE (TWO MG - NEW SYRINGE VERSION) IV PRN ×4 (03:13→22:14)
[2020-02-08] MEDS ORDERED: fentaNYL* 50 MCG/ML 2 ML VIAL (100 MCG VIAL) ONE (07:11)
[2020-02-08] MEDS ORDERED: diPHENhydraMINE IV* 50 MG/ML 1 ml VIAL (BENADRYL) ONE (07:11)
[2020-02-08] MEDS ORDERED: Midazolam* 1 MG/ML 10 ML VIAL (10 MG) ONE (07:11)
[2020-02-08 07:18] LABS: ABS Lymphocytes 1.2 10^3/ul (1.0-4.8); ABS Monocytes 0.3 10^3/ul (0-0.8); ABS Neutrophils 6.9 10^3/ul (1.5-7.7); Eosinophil % 0.3 %; Hematocrit 21 % (35-47); Hemoglobin 7.4 g/dL (12.0-16.0); Lymphocyte % 14.3 %; Mean Corpuscular HGB Conc 35 g/dL (31-36); Mean Corpuscular Hemoglobin 30 pg (27-31); Mean Corpuscular Volume 87 fL (80-97); Mean Platelet Volume 7.6 fL (7.4-10.4); Nucleated Red Blood Cells % 0.2; Platelet Count 148 10^3/uL (150-450); Red Blood Count 2.45 10^6 /uL (3.70-4.87); Red Cell Distribution Width 14 % (10-15); White Blood Count 8.5 10^3/uL (3.5-10.8)
[2020-02-08 07:25] LABS: Activated Partial Thrombo Time 28.2 seconds (26.0-38.0); INR 1.3 (0.82-1.09)
[2020-02-08 07:35] LABS: BUN/Creatinine Ratio 31.3 (8-20); Calcium 7.2 mg/dL (8.6-10.3); EGFR African American 75.2 (>60); EGFR Non-African American 62.1 (>60)
[2020-02-08] MEDS: Pantoprazole* 80 mg IN NS 80 MG/250 ML BAG IV SCH ×2 (08:05→18:57)
[2020-02-08] MEDS: Octreotide Acetate* 500 MCG in NS 0.9% 100 ML* 100 ML IV SCH ×2 (08:20→18:58)
[2020-02-08] MEDS: KCL 20 MEQ/100 ML IVPREMIX* 20 MEQ/100 ML BAG IV SCH ×3 (08:20→15:05)
[2020-02-08] MEDS: Lactated Ringers 1000 ML Bag* 1,000 ML IV SCH ×2 (08:24→17:25)
--- NOTE | 2020-02-08 09:22 | PN ---
<Angelica Peacock - Last Filed: 02/08/20 11:14> Date of Service: 02/08/20 Critical Care Services: Overnight events, One episode of mahagony stool, medium amount overnight. One episode of hemoptysis, dark blood clot according to patient. Received 6U PRBC and 1U FFP overnight. Hemodynamically stable overnight. Tele: NSR, HR 85 2L O2 for comfort Vital Signs: Temp Pulse Resp BP SpO2 FiO2 99.3 F 96 19 121/79 96 02/08/20 06:15 02/08/20 08:40 02/08/20 08:40 02/08/20 08:40 02/08/20 08:40 Physical Exam: Constitutional: obese habitus, not in distress, more comfortable looking, Head: normocephalic, atraumatic ENT: moist mucous membranes Neck: soft, supple, no jvd, no stridor CVS: normal rate, regular, no murmur Chest/Resp: bilateral air entry, no rhales, no wheeze, no rhonchi, no acc muscle use Abdomen/GI: central obesity, soft, nontender. Ext/Msk: warm ,pulses+ Skin: superficial weeping ulcer in bilateral lower legs, no surrounding erythema or swelling, dressed up Neuro: awake, alert, orientedx3, moving all extremities, no gross focal deficit Psych: normal affect Fluid Balance (Past 24 Hours): S=6076 O=250 Net= 5473 Intake & Output 02/06/20 02/07/20 02/08/20 02/09/20 06:59 06:59 06:59 06:59 Intake Total 5723 300 Output Total 250 800 Balance 5473 -500 Weight 108.286 kg Intake: IV Fluids 4200 LR 1988 NS (0.9%) 211 Medicated IV 773 CC - Norepinephrine/ 165 Levophed GEN - Octreotide 153 GEN - Pantoprazole/ 455 Protonix Oral 400 0 Whole Blood 350 300 Output: Urine 0 800 Emesis 250 Other: Estimated Void Large # Voids 1 Labs: Laboratory Results - last 24 hr 02/07/20 02/07/20 02/07/20 11:06 11:06 11:06 WBC 27.5 H RBC 0.95 L Hgb 3.0 L* Hct 10 L MCV 101 H MCH 31 MCHC 31 RDW 15 Plt Count 476 H MPV 8.7 Neut % (Auto) 83.4 Lymph % (Auto) 12.9 [place] % (Auto) 2.4 Eos % (Auto) 0.5 Baso % (Auto) 0.8 Absolute Neuts (auto) 23.0 H Absolute Lymphs (auto) 3.6 Absolute Monos (auto) 0.7 Absolute Eos (auto) 0.1 Absolute Basos (auto) 0.2 Absolute Nucleated RBC 0.3 Nucleated RBC % 1.0 Polychromasia 2+ Anisocytosis 2+ Macrocytosis 1+ INR (Anticoag Therapy) APTT Sodium 137 Potassium 3.3 L Chloride 109 Carbon Dioxide 7 L* Anion Gap 21 H BUN 39 H Creatinine 1.29 H Est GFR ( Amer) 55.4 Est GFR (Non-Af Amer) 45.8 BUN/Creatinine Ratio 30.2 H Glucose 286 H Calcium 7.5 L Phosphorus Magnesium Total Bilirubin 0.20 AST 18 ALT 11 Alkaline Phosphatase 57 Total Protein 4.8 L Albumin 2.1 L Globulin 2.7 Albumin/Globulin Ratio 0.8 L Salicylates < 2.50 Acetaminophen < 15 Blood Type O Positive Antibody Screen Negative Crossmatch See Detail Transfusion React Rpt Donor Unit # Post-Trans Blood Type Post-Trans INDU Reaction Interpretation 02/07/20 02/07/20 02/07/20 11:06 11:45 15:16 WBC RBC Hgb 2.9 L* Hct 10 L MCV MCH MCHC RDW Plt Count MPV Neut % (Auto) Lymph % (Auto) [place] % (Auto) Eos % (Auto) Baso % (Auto) Absolute Neuts (auto) Absolute Lymphs (auto) Absolute Monos (auto) Absolute Eos (auto) Absolute Basos (auto) Absolute Nucleated RBC Nucleated RBC % Polychromasia Anisocytosis Macrocytosis INR (Anticoag Therapy) 1.46 H APTT Sodium 139 Potassium 3.5 Chloride 115 H Carbon Dioxide 11 L* Anion Gap 13 H BUN 39 H Creatinine 1.27 H Est GFR ( Amer) 56.4 Est GFR (Non-Af Amer) 46.6 BUN/Creatinine Ratio 30.7 H Glucose 161 H Calcium 7.0 L Phosphorus 4.9 Magnesium 1.9 Total Bilirubin AST ALT Alkaline Phosphatase Total Protein Albumin Globulin Albumin/Globulin Ratio Salicylates Acetaminophen Blood Type Antibody Screen Crossmatch Transfusion React Rpt Donor Unit # Post-Trans Blood Type Post-Trans INDU Reaction Interpretation 02/07/20 02/07/20 02/07/20 15:16 15:40 18:15 WBC 42.5 H RBC 1.37 L Hgb 3.9 L* 4.4 L* Hct 13 L 14 L MCV 93 MCH 29 MCHC 31 RDW 15 Plt Count 461 H MPV 7.9 Neut % (Auto) Lymph % (Auto) [place] % (Auto) Eos % (Auto) Baso % (Auto) Absolute Neuts (auto) Absolute Lymphs (auto) Absolute Monos (auto) Absolute Eos (auto) Absolute Basos (auto) Absolute Nucleated RBC Nucleated RBC % Polychromasia Anisocytosis Macrocytosis INR (Anticoag Therapy) APTT Sodium Potassium Chloride Carbon Dioxide Anion Gap BUN Creatinine Est GFR ( Amer) Est GFR (Non-Af Amer) BUN/Creatinine Ratio Glucose Calcium Phosphorus Magnesium Total Bilirubin AST ALT Alkaline Phosphatase Total Protein Albumin Globulin Albumin/Globulin Ratio Salicylates Acetaminophen Blood Type Antibody Screen Crossmatch Transfusion React Rpt Donor Unit # [id number] Post-Trans Blood Type O Positive Post-Trans INDU Negative Reaction Interpretation 02/08/20 02/08/20 02/08/20 00:00 07:00 07:00 WBC RBC Hgb 6.1 L* Hct 19 L MCV MCH MCHC RDW Plt Count MPV Neut % (Auto) Lymph % (Auto) [place] % (Auto) Eos % (Auto) Baso % (Auto) Absolute Neuts (auto) Absolute Lymphs (auto) Absolute Monos (auto) Absolute Eos (auto) Absolute Basos (auto) Absolute Nucleated RBC Nucleated RBC % Polychromasia Anisocytosis Macrocytosis INR (Anticoag Therapy) 1.30 H APTT 28.2 Sodium 141 Potassium 3.0 L Chloride 117 H Carbon Dioxide 17 L Anion Gap 7 BUN 31 H Creatinine 0.99 H Est GFR ( Amer) 75.2 Est GFR (Non-Af Amer) 62.1 BUN/Creatinine Ratio 31.3 H Glucose 131 H Calcium 7.2 L Phosphorus Magnesium Total Bilirubin AST ALT Alkaline Phosphatase Total Protein Albumin Globulin Albumin/Globulin Ratio Salicylates Acetaminophen Blood Type Antibody Screen Crossmatch Transfusion React Rpt Donor Unit # Post-Trans Blood Type Post-Trans INDU Reaction Interpretation 02/08/20 07:00 WBC 8.5 RBC 2.45 L Hgb 7.4 L Hct 21 L MCV 87 MCH 30 MCHC 35 RDW 14 Plt Count 148 L MPV 7.6 Neut % (Auto) 81.5 Lymph % (Auto) 14.3 [place] % (Auto) 3.7 Eos % (Auto) 0.3 Baso % (Auto) 0.2 Absolute Neuts (auto) 6.9 Absolute Lymphs (auto) 1.2 Absolute Monos (auto) 0.3 Absolute Eos (auto) 0.0 Absolute Basos (auto) 0.0 Absolute Nucleated RBC 0.0 Nucleated RBC % 0.2 Polychromasia Anisocytosis Macrocytosis INR (Anticoag Therapy) APTT Sodium Potassium Chloride Carbon Dioxide Anion Gap BUN Creatinine Est GFR ( Amer) Est GFR (Non-Af Amer) BUN/Creatinine Ratio Glucose Calcium Phosphorus Magnesium Total Bilirubin AST ALT Alkaline Phosphatase Total Protein Albumin Globulin Albumin/Globulin Ratio Salicylates Acetaminophen Blood Type Antibody Screen Crossmatch Transfusion React Rpt Donor Unit # Post-Trans Blood Type Post-Trans INDU Reaction Interpretation Studies: EGD verbal result : large ulcer in duodenum Nutrition: NPO in view of high risk bleeding Impression: Gita Martinez is a 39 y/o female with history of unspecified liver disease, depression, anxiety, bilateral leg ulcer with chronic leg pain, "Morgellons disease", [place] [facility] [place] and hematemesis for 4 days after taking significant amount of ibuprofen, noted hemorrhagic shock with Hb 3.0, currently patient is hemodynamically stable, EGD confirmed large peptic ulcer. 1. Hemorrhagic shock 2 to upper GI bleed from PUD 2. Possible underlying liver cirrhosis, no decompensation 3. Lower extremity wound 4. Depression, anxiety, Morgellons disease Plan: Neuro-alert, oriented, no active issues -Delirium prec; avoid BDZ CVS-hemdodynamically stable Resp- -InO2 for comfort now, keep sat>92% ID- leukocytosis yesterday, likely reactive, resolving - bilateral LL wound but not infected looking - no other signs and symptoms of infection GI- -NPO for now in view of high risk bleeding -continue to monitor bleeding -iv ppi continuous and iv octreotide Renal- - iv kcl 20mmol 3cycles, recheck bmp tomorrow -strict I/O, replete to keep K>4, Mg>2 Heme-Keep Hb>7 Endo-Maintain BG<200, insulin protocol as needed Musculsk- pressure ulcer prophylaxis. Bedrest. Wounds- bilateral LL wound, consulted wound team, suggested calcium Alginate for the wound, soup and water wash for the feet. Nutrition-npo for now DVT prophylaxis:hold off due to GI bleed GI prophylaxis: iv ppi and octreotide for gi bleed Central Line: right IJ central line 02/06 Arterial Line: no Alatorre Cathetor: no Disposition: Patient can be transferred to medical floor if remains stable after scope Patient clinical status: improved Code Status:Full code <Vivian Calvert - Last Filed: 02/08/20 18:47> Vital Signs: Temp Pulse Resp BP SpO2 FiO2 98.7 F 78 17 135/83 96 02/08/20 12:00 02/08/20 18:15 02/08/20 18:15 02/08/20 18:00 02/08/20 18:15 Physical Exam: Gen: HEENT: Lungs: Cardiac: Abdomen: Extremities: Neuro: Fluid Balance (Past 24 Hours): I= O= Net Intake & Output 02/06/20 02/07/20 02/08/20 02/09/20 06:59 06:59 06:59 06:59 Intake Total 5723 1808.1 Output Total 250 1375 Balance 5473 433.1 Weight 238 lb 11.663 oz Intake: IV Fluids 4200 979 LR 1989 979 NS (0.9%) 211 IVPB 200 Potassiu m 200 Medicated IV 773 304.1 CC - Norepinephrine/ 165 Levophed GEN - Octreotide 153 87.1 GEN - Pantoprazole/ 455 217 Protonix Oral 400 25 Whole Blood 350 300 Output: Urine 0 1375 Emesis 250 Other: Estimated Void Large # Voids 1 Labs: Laboratory Results - last 24 hr 02/07/20 02/08/20 02/08/20 11:06 00:00 07:00 WBC RBC Hgb 6.1 L* Hct 19 L MCV MCH MCHC RDW Plt Count MPV Neut % (Auto) Lymph % (Auto) [place] % (Auto) Eos % (Auto) Baso % (Auto) Absolute Neuts (auto) Absolute Lymphs (auto) Absolute Monos (auto) Absolute Eos (auto) Absolute Basos (auto) Absolute Nucleated RBC Nucleated RBC % INR (Anticoag Therapy) APTT Sodium 141 Potassium 3.0 L Chloride 117 H Carbon Dioxide 17 L Anion Gap 7 BUN 31 H Creatinine 0.99 H Est GFR ( Amer) 75.2 Est GFR (Non-Af Amer) 62.1 BUN/Creatinine Ratio 31.3 H Glucose 131 H Calcium 7.2 L Blood Type O Positive Antibody Screen Negative Crossmatch See Detail 02/08/20 02/08/20 02/08/20 07:00 07:00 11:45 WBC 8.5 RBC 2.45 L Hgb 7.4 L 7.0 L Hct 21 L 21 L MCV 87 MCH 30 MCHC 35 RDW 14 Plt Count 148 L MPV 7.6 Neut % (Auto) 81.5 Lymph % (Auto) 14.3 [place] % (Auto) 3.7 Eos % (Auto) 0.3 Baso % (Auto) 0.2 Absolute Neuts (auto) 6.9 Absolute Lymphs (auto) 1.2 Absolute Monos (auto) 0.3 Absolute Eos (auto) 0.0 Absolute Basos (auto) 0.0 Absolute Nucleated RBC 0.0 Nucleated RBC % 0.2 INR (Anticoag Therapy) 1.30 H APTT 28.2 Sodium Potassium Chloride Carbon Dioxide Anion Gap BUN Creatinine Est GFR ( Amer) Est GFR (Non-Af Amer) BUN/Creatinine Ratio Glucose Calcium Blood Type Antibody Screen Crossmatch Plan: Attending physician statement: Pt seen and examined at bedside, plan of care discussed with Dr Angelica Peacock and bedside RN. Pt is 39 y o f admitted for GI bleed, s/p EGD found to have multiple small ulcers in stomach and large ulcer in duodenum with risk for rebleed. Pt is hemodynamically stable, most recent Hb 7.0. Will continue to monitor H&H closely. Will need close monitoring in ICU for 24hrs. Critical Care Time:
[2020-02-08 12:04] LABS: Hematocrit 21 % (35-47)
--- NOTE | 2020-02-08 18:19 | PN ---
Progress Note - Progress Note Date of Service: 02/08/20 Note: GI Brief EGD Note E: LA-D erosive reflux, no fresh or old blood G: multiple small gastric ulcers in antrum/body, subcentimeter. clean based, no fresh or old blood. D: Very large circumferential ulcer in D2-D3, likely GDA territory with high risk features. Due to size and no active bleeding. No therapy was done Beyond ulcer small bowel appeared normal Rec: PPI x 72 hours ICU tonight. Clears ok Very high risk ulcer, if develops overt signs of bleeding recommend surgical evaluation or embolization. 2nd look endoscopy could be considered but endoscopic treatment of this may not be feasible. Needs BID PPI x 3 months Repeat egd in 3 months time Absolutely NO NSAIDs. Antonio Amin DO 02/08/20 [id number]
[2020-02-09] MEDS: Lactated Ringers 1000 ML Bag* 1,000 ML IV SCH (03:03)
[2020-02-09] MEDS: Octreotide Acetate* 500 MCG in NS 0.9% 100 ML* 100 ML IV SCH (05:10)
[2020-02-09 05:46] LABS: BUN/Creatinine Ratio 29.1 (8-20); Calcium 7.7 mg/dL (8.6-10.3); EGFR African American 88.4 (>60); EGFR Non-African American 73.1 (>60); Potassium 3.2 mmol/L (3.5-5.0)
[2020-02-09] MEDS: Pantoprazole* 80 mg IN NS 80 MG/250 ML BAG IV SCH ×2 (06:17→17:05)
[2020-02-09] MEDS: Morphine INJ* 2 MG/ML 1 ML SYRINGE (TWO MG - NEW SYRINGE VERSION) IV PRN ×3 (07:24→13:01)
[2020-02-09 08:01] LABS: ABS Basophils 0.1 10^3/ul (0-0.2); ABS Eosinophils 0.1 10^3/ul (0-0.6); ABS Lymphocytes 1.6 10^3/ul (1.0-4.8); ABS Monocytes 0.2 10^3/ul (0-0.8); ABS Neutrophils 3.9 10^3/ul (1.5-7.7); Eosinophil % 1.1 %; Hematocrit 19 % (35-47); Hemoglobin 6.5 g/dL (12.0-16.0); Lymphocyte % 27.3 %; Mean Corpuscular HGB Conc 34 g/dL (31-36); Mean Corpuscular Hemoglobin 30 pg (27-31); Mean Corpuscular Volume 89 fL (80-97); Mean Platelet Volume 8.6 fL (7.4-10.4); Nucleated Red Blood Cells % 0.1; Platelet Count 135 10^3/uL (150-450); Red Blood Count 2.18 10^6 /uL (3.70-4.87); Red Cell Distribution Width 15 % (10-15); White Blood Count 5.9 10^3/uL (3.5-10.8)
[2020-02-09 08:58] LABS: INR 1.34 (0.82-1.09)
[2020-02-09 09:08] LABS: BUN/Creatinine Ratio 25.3 (8-20); Calcium 7.5 mg/dL (8.6-10.3); EGFR African American 87.3 (>60); EGFR Non-African American 72.1 (>60); Potassium 3.4 mmol/L (3.5-5.0)
[2020-02-09] MEDS: KCL 20 MEQ/100 ML IVPREMIX* 20 MEQ/100 ML BAG IV SCH ×3 (09:20→13:30)
[2020-02-09 10:01] LABS: ABS Basophils 0.1 10^3/ul (0-0.2); ABS Eosinophils 0.1 10^3/ul (0-0.6); ABS Lymphocytes 1.2 10^3/ul (1.0-4.8); ABS Monocytes 0.3 10^3/ul (0-0.8); ABS Neutrophils 3.8 10^3/ul (1.5-7.7); Eosinophil % 1.2 %; Hematocrit 19 % (35-47); Hemoglobin 6.5 g/dL (12.0-16.0); Lymphocyte % 22.7 %; Mean Corpuscular HGB Conc 34 g/dL (31-36); Mean Corpuscular Hemoglobin 30 pg (27-31); Mean Corpuscular Volume 89 fL (80-97); Mean Platelet Volume 7.4 fL (7.4-10.4); Nucleated Red Blood Cells % 0.1; Platelet Count 135 10^3/uL (150-450); Red Blood Count 2.16 10^6 /uL (3.70-4.87); Red Cell Distribution Width 15 % (10-15); White Blood Count 5.4 10^3/uL (3.5-10.8)
[2020-02-09 11:43] LABS: Hepatitis B Surface Antigen Nonreactive (Nonreactive)
[2020-02-09 12:00] LABS: Hepatitis B Surface Ab Immune (Immune); Hepatitis C Antibody Negative (Negative)
--- NOTE | 2020-02-09 13:24 | PN ---
Progress Note - Progress Note Date of Service: 02/09/20 Note: Progress Note -- Critical Care 24 hour events/significant events: - Hgb 6.5 - VSS - 1 dark bloody stool overnight ROS: negative except for pertinent positives mentioned above Tele: NSR Vitals: Vital Signs 02/08/20 02/08/20 02/08/20 13:00 13:15 13:30 Temperature Pulse Rate 78 77 86 Respiratory 23 24 20 Rate Blood Pressure 106/74 110/64 120/70 (mmHg) O2 Sat by Pulse 99 100 97 Oximetry 02/08/20 02/08/20 02/08/20 13:45 13:46 14:00 Temperature Pulse Rate 84 81 79 Respiratory 21 18 20 Rate Blood Pressure 113/76 137/70 (mmHg) O2 Sat by Pulse 94 99 99 Oximetry 02/08/20 02/08/20 02/08/20 14:15 14:30 14:45 Temperature Pulse Rate 81 79 76 Respiratory 16 15 16 Rate Blood Pressure 131/92 122/74 125/73 (mmHg) O2 Sat by Pulse 99 99 99 Oximetry 02/08/20 02/08/20 02/08/20 15:00 15:15 15:30 Temperature Pulse Rate 80 81 82 Respiratory 18 18 19 Rate Blood Pressure 106/65 117/69 (mmHg) O2 Sat by Pulse 98 96 97 Oximetry 02/08/20 02/08/20 02/08/20 15:45 16:00 16:15 Temperature Pulse Rate 85 80 82 Respiratory 19 18 17 Rate Blood Pressure 104/57 (mmHg) O2 Sat by Pulse 98 97 98 Oximetry 02/08/20 02/08/20 02/08/20 16:30 16:45 17:00 Temperature Pulse Rate 78 84 80 Respiratory 18 18 16 Rate Blood Pressure 103/54 129/72 (mmHg) O2 Sat by Pulse 97 100 97 Oximetry 02/08/20 02/08/20 02/08/20 17:15 17:25 17:30 Temperature Pulse Rate 78 82 Respiratory 17 20 17 Rate Blood Pressure 121/63 (mmHg) O2 Sat by Pulse 98 100 Oximetry 02/08/20 02/08/20 02/08/20 17:45 18:00 18:15 Temperature Pulse Rate 79 78 78 Respiratory 24 18 17 Rate Blood Pressure 135/83 (mmHg) O2 Sat by Pulse 100 99 96 Oximetry 03/02/08/20 02/08/20 18:30 18:45 19:00 Temperature Pulse Rate 80 82 80 Respiratory 20 18 16 Rate Blood Pressure (mmHg) O2 Sat by Pulse 98 97 98 Oximetry 02/08/20 02/08/20 02/08/20 19:01 19:15 19:30 Temperature Pulse Rate 78 82 76 Respiratory 16 18 34 Rate Blood Pressure 119/79 (mmHg) O2 Sat by Pulse 100 96 96 Oximetry 02/08/20 02/08/20 02/08/20 19:45 19:49 20:00 Temperature 98.6 F Pulse Rate 77 79 Respiratory 27 19 Rate Blood Pressure 110/74 (mmHg) O2 Sat by Pulse 96 95 Oximetry 02/08/20 02/08/20 02/08/20 20:12 20:15 20:30 Temperature Pulse Rate 82 75 Respiratory 22 17 14 Rate Blood Pressure (mmHg) O2 Sat by Pulse 99 92 Oximetry 02/08/20 02/08/20 02/08/20 20:45 21:00 21:10 Temperature Pulse Rate 74 73 Respiratory 14 18 18 Rate Blood Pressure 115/70 (mmHg) O2 Sat by Pulse 97 Oximetry 02/08/20 02/08/20 02/08/20 21:15 21:30 21:45 Temperature Pulse Rate 75 74 68 Respiratory 18 18 22 Rate Blood Pressure (mmHg) O2 Sat by Pulse 96 97 99 Oximetry 02/08/20 02/08/20 02/08/20 22:00 22:01 22:14 Temperature Pulse Rate 86 74 Respiratory 28 15 20 Rate Blood Pressure 130/68 (mmHg) O2 Sat by Pulse 93 100 Oximetry 02/08/20 02/08/20 02/08/20 22:15 22:30 22:45 Temperature Pulse Rate 93 70 70 Respiratory 17 19 18 Rate Blood Pressure (mmHg) O2 Sat by Pulse 94 100 99 Oximetry 02/08/20 02/08/20 02/08/20 23:00 23:10 23:15 Temperature Pulse Rate 69 66 71 Respiratory 16 17 15 Rate Blood Pressure 115/73 (mmHg) O2 Sat by Pulse 99 98 95 Oximetry 02/08/20 02/08/20 02/08/20 23:30 23:45 23:58 Temperature 98.6 F Pulse Rate 72 75 Respiratory 17 17 Rate Blood Pressure (mmHg) O2 Sat by Pulse 94 93 Oximetry 03/02/09/20 02/09/20 00:00 00:15 00:30 Temperature Pulse Rate 71 76 69 Respiratory 19 29 22 Rate Blood Pressure 108/62 (mmHg) O2 Sat by Pulse 94 93 99 Oximetry 02/09/20 02/09/20 02/09/20 00:45 01:00 01:15 Temperature Pulse Rate 71 72 72 Respiratory 26 18 18 Rate Blood Pressure 118/72 (mmHg) O2 Sat by Pulse 97 95 95 Oximetry 02/09/20 02/09/20 02/09/20 01:30 01:45 02:00 Temperature Pulse Rate 73 73 73 Respiratory 19 18 18 Rate Blood Pressure 115/74 (mmHg) O2 Sat by Pulse 93 92 93 Oximetry 02/09/20 02/09/20 02/09/20 02:15 02:30 02:45 Temperature Pulse Rate 74 74 74 Respiratory 21 19 19 Rate Blood Pressure (mmHg) O2 Sat by Pulse 94 93 94 Oximetry 02/09/20 02/09/20 02/09/20 03:00 03:15 03:30 Temperature Pulse Rate 76 75 76 Respiratory 16 17 18 Rate Blood Pressure 104/67 (mmHg) O2 Sat by Pulse 94 92 92 Oximetry 02/09/20 02/09/20 02/09/20 03:45 04:00 04:15 Temperature 98.4 F Pulse Rate 72 75 70 Respiratory 17 21 15 Rate Blood Pressure 119/69 (mmHg) O2 Sat by Pulse 97 92 95 Oximetry 02/09/20 02/09/20 02/09/20 04:30 04:45 05:00 Temperature Pulse Rate 72 73 69 Respiratory 16 17 17 Rate Blood Pressure 107/62 (mmHg) O2 Sat by Pulse 92 90 91 Oximetry 02/09/20 02/09/20 02/09/20 05:15 05:30 05:45 Temperature Pulse Rate 70 73 74 Respiratory 18 17 27 Rate Blood Pressure (mmHg) O2 Sat by Pulse 92 91 91 Oximetry 02/09/20 02/09/20 02/09/20 05:50 06:00 06:15 Temperature Pulse Rate 68 67 Respiratory 18 27 25 Rate Blood Pressure 133/74 (mmHg) O2 Sat by Pulse 97 94 Oximetry 02/09/20 02/09/20 02/09/20 06:30 06:45 07:00 Temperature Pulse Rate 68 68 69 Respiratory 32 17 18 Rate Blood Pressure 132/80 (mmHg) O2 Sat by Pulse 97 96 93 Oximetry 02/09/20 02/09/20 02/09/20 07:15 07:24 07:30 Temperature Pulse Rate 67 69 Respiratory 20 20 18 Rate Blood Pressure (mmHg) O2 Sat by Pulse 96 94 Oximetry 02/09/20 02/09/20 02/09/20 07:45 07:59 08:00 Temperature 99.1 F Pulse Rate 70 64 Respiratory 15 15 Rate Blood Pressure 130/82 (mmHg) O2 Sat by Pulse 97 98 Oximetry 02/09/20 02/09/20 02/09/20 08:15 08:30 08:45 Temperature Pulse Rate 70 65 75 Respiratory 18 19 15 Rate Blood Pressure (mmHg) O2 Sat by Pulse 98 99 97 Oximetry 02/09/20 02/09/20 02/09/20 08:48 09:00 09:15 Temperature Pulse Rate 68 69 Respiratory 16 17 15 Rate Blood Pressure 133/86 (mmHg) O2 Sat by Pulse 100 98 Oximetry 02/09/20 02/09/20 02/09/20 09:30 09:45 09:52 Temperature Pulse Rate 72 68 Respiratory 16 23 20 Rate Blood Pressure (mmHg) O2 Sat by Pulse 94 97 Oximetry 02/09/20 02/09/20 02/09/20 10:00 10:15 10:38 Temperature Pulse Rate 73 69 Respiratory 22 20 Rate Blood Pressure (mmHg) O2 Sat by Pulse 97 98 Oximetry 02/09/20 02/09/20 02/09/20 10:41 10:56 10:57 Temperature Pulse Rate 68 Respiratory 20 14 17 Rate Blood Pressure 120/67 (mmHg) O2 Sat by Pulse 100 Oximetry 02/09/20 02/09/20 02/09/20 11:00 11:15 11:17 Temperature 98 F Pulse Rate 70 73 Respiratory 25 18 Rate Blood Pressure 127/83 (mmHg) O2 Sat by Pulse 91 98 Oximetry 02/09/20 02/09/20 02/09/20 11:30 11:45 11:46 Temperature Pulse Rate 73 98 Respiratory 15 20 16 Rate Blood Pressure (mmHg) O2 Sat by Pulse 99 Oximetry 02/09/20 12:00 Temperature Pulse Rate 76 Respiratory 15 Rate Blood Pressure 121/74 (mmHg) O2 Sat by Pulse 99 Oximetry Intake and Output Last 24 Hours 02/07/20 02/08/20 02/09/20 02/10/20 06:59 06:59 06:59 06:59 Intake Total 5723 3736.9 375 Output Total 250 1625 800 Balance 5473 2111.9 -425 Weight 238 lb 11.663 oz 247 lb 5.738 oz Intake: IV Fluids 4200 2447 LR 1988 2447 NS (0.9%) 211 IVPB 200 Potassiu m 200 Medicated IV 773 749.9 CC - Norepinephrine/ 165 Levophed GEN - Octreotide 153 169.9 GEN - Pantoprazole/ 455 580 Protonix Oral 400 40 375 Whole Blood 350 300 Output: Urine 0 1625 800 Emesis 250 Other: Estimated Void Large Estimated Stool Amount Medium # Voids 1 O2: RA Infusions: LR @ 100 Medications: Acetaminophen (Tylenol Tab*) 650 mg PO Q4H PRN PRN Reason: PAIN - MILD Last Admin: 02/08/20 01:11 Dose: 650 mg Pantoprazole Sodium (Protonix Iv Bag*) 80 mg in 250 mls @ 25 mls/hr IV Q10H IRA Last Admin: 02/09/20 06:17 Dose: 25 mls/hr Morphine Sulfate (Morphine Inj (Syringe))*) 2 mg IV Q2H PRN PRN Reason: PAIN - SEVERE Last Admin: 02/09/20 10:41 Dose: 2 mg Tramadol HCl (Ultram*) 50 mg PO Q6H PRN PRN Reason: PAIN - MODERATE Last Admin: 02/07/20 23:32 Dose: 50 mg Physical Exam: Constitutional: awake, alert, no distress, no diaphoresis, pale, fatigued appearing Head: normocephalic, atraumatic Eyes: no icterus ENT: moist mucous membranes Neck: soft, supple CVS: normal rate, regular, no murmur Chest/Resp: bilateral air entry, no rhales, no wheeze, no rhonchi, no acc muscle use Abdomen/GI: soft, nontender, nondistended, BS+ Ext/Msk: warm, BLE wounds wrapped with kerlex, pitting edema BLE 2+ Skin: intact, warm Neuro: awake, alert, orientedx3, moving all extremities, no gross focal deficit Psych: normal affect Labs: Laboratory Results - last 24 hr 02/07/20 02/08/20 02/09/20 11:06 11:45 05:22 WBC RBC Hgb Hct MCV MCH MCHC RDW Plt Count MPV Neut % (Auto) Lymph % (Auto) [place] % (Auto) Eos % (Auto) Baso % (Auto) Absolute Neuts (auto) Absolute Lymphs (auto) Absolute Monos (auto) Absolute Eos (auto) Absolute Basos (auto) Absolute Nucleated RBC Nucleated RBC % INR (Anticoag Therapy) Sodium 140 Potassium 3.2 L Chloride 117 H Carbon Dioxide 19 L Anion Gap 4 BUN 25 H Creatinine 0.86 Est GFR ( Amer) 88.4 Est GFR (Non-Af Amer) 73.1 BUN/Creatinine Ratio 29.1 H Glucose 113 H Hemoglobin A1c 5.3 Calcium 7.7 L Hepatitis B Antibody Hep Bs Antigen Hepatitis C Antibody Hepatitis C Ab Index Blood Type O Positive Antibody Screen Negative Crossmatch See Detail 02/09/20 02/09/20 02/09/20 05:22 08:46 08:46 WBC 5.9 RBC 2.18 L Hgb 6.5 L Hct 19 L MCV 89 MCH 30 MCHC 34 RDW 15 Plt Count 135 L MPV 8.6 Neut % (Auto) 66.5 Lymph % (Auto) 27.3 [place] % (Auto) 4.2 Eos % (Auto) 1.1 Baso % (Auto) 0.9 Absolute Neuts (auto) 3.9 Absolute Lymphs (auto) 1.6 Absolute Monos (auto) 0.2 Absolute Eos (auto) 0.1 Absolute Basos (auto) 0.1 Absolute Nucleated RBC 0.0 Nucleated RBC % 0.1 INR (Anticoag Therapy) 1.34 H Sodium Potassium Chloride Carbon Dioxide Anion Gap BUN Creatinine Est GFR ( Amer) Est GFR (Non-Af Amer) BUN/Creatinine Ratio Glucose Hemoglobin A1c Calcium Hepatitis B Antibody Immune Hep Bs Antigen Nonreactive Hepatitis C Antibody Negative Hepatitis C Ab Index 0.01 Blood Type Antibody Screen Crossmatch 02/09/20 02/09/20 08:46 09:54 WBC 5.4 RBC 2.16 L Hgb 6.5 L Hct 19 L MCV 89 MCH 30 MCHC 34 RDW 15 Plt Count 135 L MPV 7.4 Neut % (Auto) 70.4 Lymph % (Auto) 22.7 [place] % (Auto) 4.6 Eos % (Auto) 1.2 Baso % (Auto) 1.1 Absolute Neuts (auto) 3.8 Absolute Lymphs (auto) 1.2 Absolute Monos (auto) 0.3 Absolute Eos (auto) 0.1 Absolute Basos (auto) 0.1 Absolute Nucleated RBC 0.0 Nucleated RBC % 0.1 INR (Anticoag Therapy) Sodium 141 Potassium 3.4 L Chloride 117 H Carbon Dioxide 19 L Anion Gap 5 BUN 22 Creatinine 0.87 Est GFR ( Amer) 87.3 Est GFR (Non-Af Amer) 72.1 BUN/Creatinine Ratio 25.3 H Glucose 113 H Hemoglobin A1c Calcium 7.5 L Hepatitis B Antibody Hep Bs Antigen Hepatitis C Antibody Hepatitis C Ab Index Blood Type Antibody Screen Crossmatch Imaging: [facility] x[facility] 02/06: right IJ tip in superior vena cava. Assessment: 39F with known medical history of unspecified liver disease, depression, anxiety, BLE wounds (possible undiagnosed Morgellon's disease), presents on 02/07/20 with 4 days of vomiting blood and having bloody stools. She' s been taking 60 tabs of ibuprofen daily for pain, for a significant amount of time. She came to the ED when she became so light headed she could not get up. Hgb 3 on arrival. She was cold, diaphoretic, pale, short of breath and tachycardic. She was given 6UPRBC total, under EGD, and bleeding has slowed down. - Hemorrhagic shock secondary to GI bleed - Multiple gastric ulcers - Blood loss anemia Plan: Neuro- - Depression/anxiety/?Morgellon's disease: continue to hold nonessential PO medications. Otherwise, she appears comfortable and appropriate -Delirium prec; avoid BDZ CVS- - No active issues -Maintain MAP>65 Resp- - No active issues -Keep sat>92% - Incentive spirometery ID- - No active issues - Goal temp<101 GI- - GI bleed d/t multiple gastric ulcers. - If hgb continues to trend down tomorrow, GI mentioned they may want to do another EGD. - Continue protonix gtt, DC octreotide -Nutrition: ok to start clears today. -GI prophylaxis Renal- -strict I/O, replete to keep K>4, Mg>2 -Voiding Heme- - Goal hgb >7 - Will be transfusing 1 unit for hgb 6.5 and recheck CBC q12hrs Endo-Maintain BG<200, insulin protocol as needed Musculsk- pressure ulcer prophylaxis. OOB Wounds- none Nutrition- clears DVT prophylaxis: SCDs GI prophylaxis: protonix gtt Central Line: Continue for 1 more day Disposition: Patient requires Critical Care/ICU for acute blood loss anemia Patient clinical status: stable Code Status: full Total Critical Care time is 30 minutes
--- NOTE | 2020-02-09 13:25 | CONSULT ---
Consult Consult: Patient seen and examined with Neisha Jacobs: Assessment 1. Upper GI bleed large Duodenal ulcer 2. abl anemia 3. LE wounds psychiatric disorder Plan montor in the ICU; still at high risk for decompensation. 1 unit of blood to be given. CBC every [address] scds 2nd to lower extremity wound. Octreotide gtt discontinued. ccm time 30 minutes.
[2020-02-09] MEDS: Gabapentin CAP(*) 100 MG PO SCH ×2 (14:13→19:57)
--- NOTE | 2020-02-09 14:40 | PN ---
Progress Note - Progress Note Date of Service: 02/09/20 Note: Gi Follow up Note Patient seen and examined. No black or blood in stool. Tolerating diet. No abdominal pain VS: 121/69, P-66, T- afebrile, R-18, 99% RA Gen: alert, oriented x3 HEENT: AT/NC, perrla, eomi, no jvp CVS: RRR s1s2 Resp: cta b/l Abd: soft, nt, nd, bs+ Ext: no c/c/e Lab Hgb 7->6.5->6.5 Plt: 135 BUN: 22 Impression Hemorrhagic shock 2/2 large DU ulcer compounded by gastric ulcers and possible cirrhosis LA-D erosive esophagitis Rec: Very high risk ulcer given size, features and location. Hgb stable, continue liquids today. If stable on 02/09 can go out of ICU. Needs at least 72 hours of PPI No NSAIDs and No etoh in future. She ultimately may have hepatic insufficiency or cirrhosis will need full outpatient workup in future. Needs to abstain from ETOH entirely. Would plan on advancing diet on 02/09, PPI 72 hours IV, the PO BID x 3 months. Will need repeat upper endoscopy at that time to ensure healing of both ulcers and esophagus. If evidence of overt bleeding or downtrending h/h on 02/09 will plan 2nd look EGD. Antonio Laugnardan DO 02/09/20 [id number]
[2020-02-09 15:54] LABS: Hematocrit 19 % (35-47); Hemoglobin 6.6 g/dL (12.0-16.0); Mean Corpuscular HGB Conc 34 g/dL (31-36); Mean Corpuscular Hemoglobin 31 pg (27-31); Mean Corpuscular Volume 89 fL (80-97); Mean Platelet Volume 7.8 fL (7.4-10.4); Platelet Count 118 10^3/uL (150-450); Red Blood Count 2.15 10^6 /uL (3.70-4.87); Red Cell Distribution Width 15 % (10-15); White Blood Count 6.2 10^3/uL (3.5-10.8)
[2020-02-09 18:04] LABS: Hematocrit 22 % (35-47); Hemoglobin 7.5 g/dL (12.0-16.0); Mean Corpuscular HGB Conc 34 g/dL (31-36); Mean Corpuscular Hemoglobin 30 pg (27-31); Mean Corpuscular Volume 89 fL (80-97); Mean Platelet Volume 7.6 fL (7.4-10.4); Platelet Count 139 10^3/uL (150-450); Red Blood Count 2.46 10^6 /uL (3.70-4.87); Red Cell Distribution Width 15 % (10-15); White Blood Count 6.8 10^3/uL (3.5-10.8)
[2020-02-09 18:18] LABS: BUN/Creatinine Ratio 24.4 (8-20); Calcium 7.8 mg/dL (8.6-10.3); EGFR Non-African American 81.8 (>60); Potassium 3.6 mmol/L (3.5-5.0)
[2020-02-10 02:01] LABS: Hematocrit 22 % (35-47); Hemoglobin 7.5 g/dL (12.0-16.0); Mean Corpuscular HGB Conc 34 g/dL (31-36); Mean Corpuscular Hemoglobin 30 pg (27-31); Mean Corpuscular Volume 90 fL (80-97); Mean Platelet Volume 7.6 fL (7.4-10.4); Platelet Count 143 10^3/uL (150-450); Red Blood Count 2.48 10^6 /uL (3.70-4.87); Red Cell Distribution Width 15 % (10-15); White Blood Count 5.9 10^3/uL (3.5-10.8)
[2020-02-10 02:16] LABS: BUN/Creatinine Ratio 20.5 (8-20); EGFR Non-African American 81.8 (>60); Potassium 3.4 mmol/L (3.5-5.0)
[2020-02-10] MEDS: Pantoprazole* 80 mg IN NS 80 MG/250 ML BAG IV SCH ×3 (03:02→14:43)
[2020-02-10] MEDS: traMADol TAB* 50 MG PO PRN ×3 (03:57→21:17)
[2020-02-10] MEDS: Gabapentin CAP(*) 100 MG PO SCH ×3 (08:10→21:17)
[2020-02-10] MEDS: Potassium Chlor TAB* 20 MEQ TAB.ER PO SCH ×2 (08:10→21:17)
--- NOTE | 2020-02-10 09:57 | PN ---
Date of Service: 02/10/20 - Doing well; have some non dark non bloody stools Vital Signs: Temp Pulse Resp BP SpO2 FiO2 99.0 F 74 12 118/69 100 02/10/20 08:00 02/10/20 09:15 02/10/20 09:15 02/10/20 09:00 02/10/20 09:15 Physical Exam: Gen: awake and alert resting in bed. HEENT: nc/at perrla Lungs: cta-b no wheezes and no rhonchi Cardiac: s1s2 rrr no murmurs and no rubs Abdomen: soft nt/nd bs+ Extremities: no edema. Lower extremities are bandadge. Neuro: AAO x3 and moving all extremities. Fluid Balance (Past 24 Hours): I= O= Net Intake & Output 02/08/20 02/09/20 02/10/20 02/11/20 06:59 06:59 06:59 06:59 Intake Total 5723 3736.9 2353 1530 Output Total 250 1625 2050 700 Balance 5473 2111.9 303 830 Weight 238 lb 11.663 oz 247 lb 5.738 oz 253 lb 15.56 oz Intake: IV Fluids 4200 2447 LR 1989 2447 NS (0.9%) 211 IVPB 200 Potassiu m 200 Medicated IV 773 749.9 583 CC - Norepinephrine/ 165 Levophed GEN - Octreotide 153 169.9 GEN - Pantoprazole/ 455 580 583 Protonix Oral 922 42 6894 1530 Whole Blood 350 300 Output: Urine 0 1625 2049 700 Emesis 250 Other: Estimated Void Large Date of Last Bowel 02/09/20 02/10/2020 Movement # Bowel Movements 1 1 Estimated Stool Amount Medium Large # Voids 1 Labs: Laboratory Results - last 24 hr 02/07/20 02/09/20 02/09/20 11:06 08:46 09:54 WBC 5.4 RBC 2.16 L Hgb 6.5 L Hct 19 L MCV 89 MCH 30 MCHC 34 RDW 15 Plt Count 135 L MPV 7.4 Neut % (Auto) 70.4 Lymph % (Auto) 22.7 [place] % (Auto) 4.6 Eos % (Auto) 1.2 Baso % (Auto) 1.1 Absolute Neuts (auto) 3.8 Absolute Lymphs (auto) 1.2 Absolute Monos (auto) 0.3 Absolute Eos (auto) 0.1 Absolute Basos (auto) 0.1 Absolute Nucleated RBC 0.0 Nucleated RBC % 0.1 Sodium Potassium Chloride Carbon Dioxide Anion Gap BUN Creatinine Est GFR ( Amer) Est GFR (Non-Af Amer) BUN/Creatinine Ratio Glucose Calcium Hepatitis B Antibody Immune Hep Bs Antigen Nonreactive Hepatitis C Antibody Negative Hepatitis C Ab Index 0.01 Blood Type O Positive Antibody Screen Negative Crossmatch See Detail 02/09/20 02/09/20 02/09/20 15:47 17:50 17:50 WBC 6.2 6.8 RBC 2.15 L 2.46 L Hgb 6.6 L 7.5 L Hct 19 L 22 L MCV 89 89 MCH 31 30 MCHC 34 34 RDW 15 15 Plt Count 118 L 139 L MPV 7.8 7.6 Neut % (Auto) Lymph % (Auto) [place] % (Auto) Eos % (Auto) Baso % (Auto) Absolute Neuts (auto) Absolute Lymphs (auto) Absolute Monos (auto) Absolute Eos (auto) Absolute Basos (auto) Absolute Nucleated RBC Nucleated RBC % Sodium 138 Potassium 3.6 Chloride 115 H Carbon Dioxide 19 L Anion Gap 4 BUN 19 Creatinine 0.78 Est GFR ( Amer) 99.0 Est GFR (Non-Af Amer) 81.8 BUN/Creatinine Ratio 24.4 H Glucose 102 H Calcium 7.8 L Hepatitis B Antibody Hep Bs Antigen Hepatitis C Antibody Hepatitis C Ab Index Blood Type Antibody Screen Crossmatch 02/10/20 02/10/20 01:35 01:35 WBC 5.9 RBC 2.48 L Hgb 7.5 L Hct 22 L MCV 90 MCH 30 MCHC 34 RDW 15 Plt Count 143 L MPV 7.6 Neut % (Auto) Lymph % (Auto) [place] % (Auto) Eos % (Auto) Baso % (Auto) Absolute Neuts (auto) Absolute Lymphs (auto) Absolute Monos (auto) Absolute Eos (auto) Absolute Basos (auto) Absolute Nucleated RBC Nucleated RBC % Sodium 139 Potassium 3.4 L Chloride 116 H Carbon Dioxide 19 L Anion Gap 4 BUN 16 Creatinine 0.78 Est GFR ( Amer) 99.0 Est GFR (Non-Af Amer) 81.8 BUN/Creatinine Ratio 20.5 H Glucose 129 H Calcium 8.0 L Hepatitis B Antibody Hep Bs Antigen Hepatitis C Antibody Hepatitis C Ab Index Blood Type Antibody Screen Crossmatch Impression: Assessment 1. Upper GI bleed large Duodenal ulcer 2. abl anemia 3. LE wounds psychiatric disorder 4. Questionable hx of liver dz 5. Anxiety and Depression Plan: -Doing well. hb is stable; monitor hb daily -protonix gtt to be continued for 72 hours -Advanced to full liquid diet -cannot wear scds 2nd to LE wounds -wound care treatment to continue -Gabapentin for pain -transferred to floor; spoke to Dr. Rivera. Critical Care Time:
[2020-02-10] MEDS: Acetaminophen TAB* 325 MG PO PRN (11:24)
--- NOTE | 2020-02-10 13:58 | PN ---
Progress Note - Progress Note Date of Service: 02/10/20 Note: GI Follow up Note: patient seen and examined. no black or blood in stool. tolerating diet. no abdominal pain VS: 108/61, P-67, R-18, T-97.8 96% TA Gen: alert and oriented x3, nad HEENT: AT/nc, perrla, eomi, no jvp CVS: RRR s1s2 Resp: cta b/l Abd: soft, nt, obese, bs+, nd. Lab: Hgb 7.5->7.5 Impression: Acute blood loss anemia 2/2 large DU ulcer etoh abuse NSAID abuse Rec: PPI IV to 02/10. if hgb stable may change to PO BID on 02/10 Advance diet as tolerated am 02/10 if tolerating can d/c PM 02/10 call with any questions needs 3 months of PO BID Pantoprazole 40mg at discharge. Repeat egd in 3 months and outpatient liver workup Antonio Amin DO 02/10/20 [id number]
[2020-02-11] MEDS: Pantoprazole* 80 mg IN NS 80 MG/250 ML BAG IV SCH ×2 (01:27→08:55)
[2020-02-11 05:04] LABS: ABS Basophils 0.1 10^3/ul (0-0.2); ABS Eosinophils 0.1 10^3/ul (0-0.6); ABS Lymphocytes 1.3 10^3/ul (1.0-4.8); ABS Monocytes 0.2 10^3/ul (0-0.8); ABS Neutrophils 3.1 10^3/ul (1.5-7.7); Eosinophil % 2.4 %; Hematocrit 21 % (35-47); Hemoglobin 7.1 g/dL (12.0-16.0); Lymphocyte % 27.3 %; Mean Corpuscular HGB Conc 34 g/dL (31-36); Mean Corpuscular Hemoglobin 30 pg (27-31); Mean Corpuscular Volume 90 fL (80-97); Nucleated Red Blood Cells % 0.1; Platelet Count 149 10^3/uL (150-450); Red Blood Count 2.35 10^6 /uL (3.70-4.87); Red Cell Distribution Width 15 % (10-15); White Blood Count 4.9 10^3/uL (3.5-10.8)
[2020-02-11] MEDS: traMADol TAB* 50 MG PO PRN (05:13)
[2020-02-11 05:19] LABS: INR 1.19 (0.82-1.09)
[2020-02-11 05:20] LABS: Albumin 2.7 g/dL (3.2-5.2); Albumin/Globulin Ratio 1.1 (1-3); Calcium 7.6 mg/dL (8.6-10.3); EGFR African American 103.6 (>60); EGFR Non-African American 85.6 (>60); Globulin 2.5 g/dL (2-4); Magnesium 1.8 mg/dL (1.9-2.7); Phosphorus 2.8 mg/dL (2.5-5.0); Potassium 3.8 mmol/L (3.5-5.0); Total Bilirubin 0.4 mg/dL (0.2-1.0); Total Protein 5.2 g/dL (6.4-8.9)
[2020-02-11] MEDS ORDERED: Magnesium Sulfate 1 GM IV* 1 GM/100 ML BAG IV ONE (08:11)
--- NOTE | 2020-02-11 08:25 | PN ---
Subjective Date of Service: 02/11/20 Interval History: Transferred out of ICU yesterday. Hgb remains stable. Pt tolerated clears and also breakfast of regular foods. She states she had soft brown BM this AM without recurrence in hematemasis, hematochezia, melena. She had lice discovered this AM - s/p treatment. She called her to treat her children before she returns home, likely later this afternoon. Objective Active Medications: Acetaminophen (Tylenol Tab*) 650 mg PO Q4H PRN PRN Reason: PAIN - MILD Last Admin: 02/10/20 11:24 Dose: 650 mg Gabapentin (Neurontin Cap(*)) 200 mg PO TID [facility] Last Admin: 02/10/20 21:17 Dose: 200 mg Pantoprazole Sodium (Protonix Iv Bag*) 80 mg in 250 mls @ 25 mls/hr IV Q10H [facility] Last Admin: 02/11/20 01:27 Dose: 25 mls/hr Magnesium Sulfate/Dextrose (Magnesium Sulfate 1 Gm Iv*) 1 gm in 100 mls @ 200 mls/hr IV ONCE ONE Stop: 02/11/20 08:40 Morphine Sulfate (Morphine Inj (Syringe))*) 2 mg IV Q2H PRN PRN Reason: PAIN - SEVERE Last Admin: 02/09/20 13:01 Dose: 2 mg Tramadol HCl (Ultram*) 50 mg PO Q6H PRN PRN Reason: PAIN - MODERATE Last Admin: 02/11/20 05:13 Dose: 50 mg Vital Signs - 8 hr 02/11/20 02/11/20 02/11/20 03:08 03:14 05:13 Temperature 98.2 F Pulse Rate 76 Respiratory 18 18 Rate Blood Pressure 96/58 106/62 (mmHg) O2 Sat by Pulse 99 Oximetry 02/11/20 07:34 Temperature 98.3 F Pulse Rate 66 Respiratory 16 Rate Blood Pressure 114/55 (mmHg) O2 Sat by Pulse 98 Oximetry Oxygen Devices in Use Now: None Appearance: well appearing, NAD, +pallor Eyes: No Scleral Icterus Ears/Nose/Mouth/Throat: Clear Oropharnyx, Mucous Membranes Moist Neck: NL Appearance and Movements; NL JVP, Trachea Midline Respiratory: Symmetrical Chest Expansion and Respiratory Effort, Clear to Auscultation Cardiovascular: NL Sounds; No Murmurs; No JVD, RRR Abdominal: NL Sounds; No Tenderness; No Distention, No Hepatosplenomegaly Extremities: - - 1+ lymphedema b/l with superficial chronic-appearing wounds Neurological: Alert and Oriented x 3 Result Diagrams: 02/11/20 04:51 02/11/20 04:51 Microbiology and Other Data: Microbiology 02/07/20 15:40 Transfusion Reaction Culture - Preliminary Blood Bag No Growth Day 3 Transfusion Reaction Gram Stain - Final 02/07/20 18:15 Nasal Screen MRSA (PCR) - Final Nasal Mrsa Not Detected 02/07/20 11:00 Stool Occult Blood (MARJORIE) - Final Stool Diagnostic Imaging: CXR: central line in situ, tip in superior vena cava. EKG Data: Tele: normal sinus rhythm ,HR 87 Assess/Plan/Problems-Billing Assessment: 39W with obesity, SAAVEDRA and likely alcoholic liver disease, anxiety/depression, h /o etoh/opioid abuse, h/o Morgellons disease, presents with hematemesis and hematochezia in the setting of significant NSAID use, found with duodenal ulcer. - Patient Problems (1) Duodenal ulcer Comment: Presented with hematemasis and melena after taking 60 tabs of ibuprofen daily for LE pain. Found with Hgb 3, now s/p transfusion and EGD. - switch PPI IV to PO - educated extensively to avoid all NSAIDs - will follow up with GI in 2 weeks and again in about 3 months for repeat EGD (2) Hepatic disease Comment: Likely from long history of SAAVEDRA and alcohol use disorder. - Continue to follow-up with PCP and GI outpatient - Continue lactulose, Spironolactone - encouraged complete alcohol cessation and weight loss (3) Lice infestation Comment: s/p treatment here with Lice . Pt called family to receive treatment at home before she returns from the hospital.
[2020-02-11] MEDS ORDERED: Dimethicone Lice Treatment 118 ML TOP.LOTION TOPICAL ONE (08:30)
[2020-02-11] MEDS: Gabapentin CAP(*) 100 MG PO SCH (08:51)
[2020-02-11] MEDS ORDERED: Pantoprazole TAB * 40 MG TAB PO SCH (09:00)
--- NOTE | 2020-02-11 09:53 | PN ---
Progress Note - Progress Note Date of Service: 02/11/20 Note: doing well, dx with Lice, stools with less dark blood, no abd pain, appetite good VS: 98.3, 114/55, 66, 98% RA nad, a and o x 3, pleasant rrr, no M lungs: CTA, no wrr +bs, obese, soft, NT/ND skin is warm and dry extrem: good cap refill hgb 7.5--->7.1, plts 149, BUN 16--->9 Large DU -change to oral PPI, advance diet, needs repeat EGD with Dr Amin in 2-3 months Everett Paz MD [facility]
[2020-02-11 12:14] VITALS: BP 116/55
--- NOTE | 2020-02-11 18:21 | DS ---
CC: Dr. Patricio Robertson * DISCHARGE SUMMARY: DATE OF ADMISSION: 02/07/20 DATE OF DISCHARGE: 02/11/20 PRIMARY CARE PHYSICIAN: Dr. Patricio Robertson. PRIMARY DIAGNOSES: 1. Gastrointestinal bleed from duodenal ulcer secondary to significant ibuprofen use. 2. Head lice. 3. Liver disease secondary to nonalcoholic steatohepatitis and alcoholic liver disease. SECONDARY DIAGNOSES: 1. Lymphedema with chronic venous stasis change of the lower extremities. 2. Obesity. 3. Anxiety/depression. 4. History of alcohol and opioid use disorders. CONSULTATION: Dr. Antonio Amin of GI. PROCEDURE: EGD on 02/08/20. DISCHARGE MEDICATIONS: 1. Pantoprazole 40 mg twice a day for at least 3 months. 2. Gabapentin 200 mg twice a day. 3. Tramadol 25 mg every 8 hours as needed for severe pain. 4. Buprenorphine 2 mg sublingual in the morning. 5. Spironolactone 100 mg daily. 6. Sertraline 150 mg daily. 7. Lactulose 15 mL every other day. 8. Multiple vitamins. HISTORY OF PRESENT ILLNESS: Ms. Martinez is a 39-year-old woman with obesity, SAAVEDRA and likely alcoholic liver disease, anxiety, depression, history of alcohol and opioid use disorders, and history of Morgellons disease, who is presenting with melena and hematemesis for 4 days. Four days ago, she began experiencing vomiting with dark brown emesis with black stool starting around that time. She began to become progressively more lightheaded to the point where she could not stand up. She reports chronic leg pain due to chronic venous stasis changes, leg ulcers, and lymphedema, so she was taking increasing doses of ibuprofen daily, eventually approximately 60 pills per day to treat the pain. The patient has a history of opioid dependence and she did not want to contact providers to switch to opioids for pain control given difficult insight with opioid use disorder. HOSPITAL COURSE: In the emergency room, the patient was cold, diaphoretic, pale , dyspneic, and tachycardic. She had hemoglobin of 3.0. She was given 4 units of packed red blood cells with 2 L of IV fluid, given a right IJ central line and required Levophed for blood pressure support. She was admitted to the ICU and GI was consulted emergently. GI recommended an IV PPI for hemorrhagic shock with signs of GI bleed. In total, she was given 7 units of red blood cells with 1 unit of fresh frozen plasma. When she was hemodynamically stable, she underwent an endoscopy, which occurred the next morning after admission. Endoscopy revealed erosive reflux without fresh or old blood in the esophagus. Her stomach had multiple small gastric ulcers in the antrum/body, which were subcentimeter, clean- based and without fresh or old blood. Her duodenum revealed a very large circumferential ulcer likely GDA territory with high risk features. Due to size and no active bleeding, no intervention was performed. Beyond small ulcer, the small bowel appeared normal. She completed a 72-hour course of an IV PPI and was initiated on clear diet. She was extensively educated on need to avoid NSAIDs and also importance of avoiding alcohol given its association with gastritis and also progression of her known liver disease. She will see the GI doctors in approximately 2 weeks in clinic, but will also need a repeat EGD in 3 months. After she tolerated food and had no recurrence of hematemesis, hematochezia or melena, she was transferred to the medical floor where it was discovered that she had head lice. The patient received treatment with [facility] and contacted her family to get treatment for lice before she returns from the hospital later that day. The patient was able to tolerate 2 diets with regular food and she felt well without recurrence in GI bleeding symptoms and felt ready to return home. To help the patient control chronic lower extremity pain for which she was previously taking significant amount of NSAIDs, she was discharged with gabapentin and tramadol low doses and encouraged to continue following up in wound clinic and likely vascular clinic for treatment of the underlying cause of her lower extremity pain. DIAGNOSTIC STUDIES/LAB DATA: Hemoglobin on discharge 7.1 with MCV 90 and platelets 149. The platelets seemed to be the patient's baseline. INR on discharge was 1.19, which is slightly elevated. BMP and LFTs largely unremarkable except for mildly elevated chloride and decreased carbon dioxide likely from significant amounts of normal saline with resuscitation. Hepatitis C and B screens negative for history of infection. Chest x-ray with no mediastinal shift noted, right IJ catheter in place. No pneumothorax. DISCHARGE PLAN: The patient will be discharged to follow up with her primary care physician as well as Dr. Antonio Amin of GI. She was extensively educated on importance of avoiding NSAID use forever. She was educated on alternative pain medications including Tylenol, although her maximum daily dose is 2000 mg or less given her liver disease. She was also given prescriptions for low doses of gabapentin and tramadol with referral for wound clinic and likely will eventually need a vascular appointment. For her history of liver disease, she was educated to avoid alcohol to prevent progression, which ultimately also help avoid gastritis. The patient was given return precautions, which included but are not limited to recurrence of GI bleed symptoms or new symptoms of fever, chest pain, cough. DIET: Healthy diet, low in processed foods. ACTIVITY: As tolerated. DISPOSITION: To home. CONDITION: Good. TIME SPENT: Approximately 60 minutes was spent on discharge of this patient, more than half of which was spent with care coordination at bedside for interview and exam. [id number]/[facility] #: [id number] ELPIDIO
--- NOTE | 2020-02-27 13:00 | PRO ---
CC: Dr. Patricio Robertson* DATE OF PROCEDURE: 02/08/2020. INDICATION FOR PROCEDURE: Hemorrhagic shock, acute blood loss anemia. PROCEDURE PERFORMED: Complete esophagogastroduodenoscopy. MEDICATIONS GIVEN: 10 mg IV Midazolam, 50 mcg IV Fentanyl, 25 mg IV Benadryl. DESCRIPTION OF PROCEDURE: After the EGD procedure, including the risks, benefits, and alternatives, with the risks not limited to perforation, surgery, missed lesions, and/or were explained to the patient, written informed consent was obtained. IV medication was given and a bite-block was placed between the teeth. The adult Olympus gastroscope was then inserted into the patient's oropharynx and into the tubular esophagus. The tubular esophagus had LA-D erosive reflux. No clear ulceration. No fresh oral blood. No clear evidence of varices. The scope was advanced through the lower esophageal sphincter into the stomach. Direct views showed multiple small gastric ulcers, about subcentimeter, in the antrum and body, clean based. No fresh oral blood seen. On retroflexion, a small sliding hiatal hernia was appreciated. The scope was then advanced through the widely patent pylorus into the duodenal bulb , C-loop and distal duodenum. In D2 to D3, there is a very large circumferential ulcer taking up the majority of the lumen, likely within the GDA territory with high risk features. No fresh oral blood was seen. No active bleeding was noted. Given the very large size and no fresh bleeding, no therapy was done. Beyond this ulcer, the small bowel did appear normal for the area visualized. The scope was then removed from the patient. She tolerated the procedure well. She remained in the ICU in stable condition. IMPRESSION: 1. LA-D erosive reflux. 2. Multiple small gastric ulcers, subcentimeter, clean based. 3. Very large circumferential ulcer in D2 to D3, likely GDA territory with high risk features, but no fresh oral blood or active bleeding. Due to the size of the ulcer and features, no therapy was done. RECOMMENDATIONS: PPI for at least 72 hours by IV. Keep in the ICU today. Clears are okay. It is a very risk ulcer. If overt signs of bleeding, recommend surgical evaluation versus embolizations. A second look endoscopy could be considered depending on clinical circumstances, but feel endoscopy treatment of this very large ulcer may not be feasible. Will need b.i.d. PPI therapy for three months and then a repeat EGD in three months' time. She should absolutely avoid NSAID's and no alcohol in the future. [id number]/[facility] #: [id number] ELPIDIO
== END 2020-02-11 14:31 | disposition home or self-care (01) | DRG 377 ==
LOC: ED 10:33 → ICU 13:52 → MEDTELE 02-10 12:25
PROVIDERS: ADMIT Surgery Surgical Critical Care; ATTEND Internal Medicine
PROC: 30233N1 Transfusion of Nonautologous Red Blood Cells into Peripheral Vein, Percutaneous Approach (ICD-10-PCS; principal; 2020-02-07)
PROC: 30233K1 Transfusion of Nonautologous Frozen Plasma into Peripheral Vein, Percutaneous Approach (ICD-10-PCS; 2020-02-07)
PROC: 05HM33Z Insertion of Infusion Device into Right Internal Jugular Vein, Percutaneous Approach (ICD-10-PCS; 2020-02-07)
PROC: B543ZZA Ultrasonography of Right Jugular Veins, Guidance (ICD-10-PCS; 2020-02-07)
PROC: 0DJ08ZZ Inspection of Upper Intestinal Tract, Via Natural or Artificial Opening Endoscopic (ICD-10-PCS; 2020-02-08)
DX: K26.0 Acute duodenal ulcer with hemorrhage (principal); R57.8 Other shock; D62 Acute posthemorrhagic anemia; N17.9 Acute kidney failure, unspecified; E87.2 Acidosis; I95.9 Hypotension, unspecified; K75.81 Nonalcoholic steatohepatitis (NASH); K70.9 Alcoholic liver disease, unspecified; T39.315A Adverse effect of propionic acid derivatives, initial encounter; B85.0 Pediculosis due to Pediculus humanus capitis; I89.0 Lymphedema, not elsewhere classified; I87.8 Other specified disorders of veins; E66.9 Obesity, unspecified; F41.8 Other specified anxiety disorders; K25.9 Gastric ulcer, unspecified as acute or chronic, without hemorrhage or perforation; K76.9 Liver disease, unspecified; L98.8 Other specified disorders of the skin and subcutaneous tissue; M79.662 Pain in left lower leg; M79.661 Pain in right lower leg; F11.21 Opioid dependence, in remission; M19.90 Unspecified osteoarthritis, unspecified site; D72.829 Elevated white blood cell count, unspecified; E86.1 Hypovolemia; E87.6 Hypokalemia; F17.210 Nicotine dependence, cigarettes, uncomplicated; F10.10 Alcohol abuse, uncomplicated; Y92.009 Unspecified place in unspecified non-institutional (private) residence as the place of occurrence of the external cause; Z68.39 Body mass index [BMI] 39.0-39.9, adult; Z79.899 Other long term (current) drug therapy; Z81.8 Family history of other mental and behavioral disorders
CPT/HCPCS: 36415; 71045; 80048; 80053; 80329; 82270; 83036; 83735; 84100; 85014; 85018; 85025; 85027; 85610; 85730; 86078; 86704; 86706; 86803; 86850; 86900; 86901; 86922; 86927; 87340; 87641; 96361; 96374; 99156; 99285; A9270-GY; G0480; J1200; J2250; J2270; J2354; J3010; J3370; J3475; J3480; P9017; P9040

== ENCOUNTER 2020-02-15 10:38 | Inpatient (IN) | payer SELFPAY ==
--- NOTE | 2020-02-15 10:45 | ED ---
GI/ HPI - HPI Summary HPI Summary: 39 year old F presenting to [facility] via EMS with a chief complaint of vomiting bright red blood 3 times and diarrhea with dark clots since yesterday. Patient reports bilateral leg wounds. The patient rates the pain 0/10 in severity. Symptoms aggravated by nothing. Symptoms alleviated by nothing. The patient was admitted to the hospital 8 days ago and was discharged 4 days ago. She denies taking any ibuprofen since being discharged. Medication list reviewed. Allergy list reviewed. Home Medications Medication Instructions Recorded Confirmed Type Folic Acid TAB* [Folvite TAB*] 1 mg PO DAILY #30 tab 03/02/17 02/07/20 Rx Multivitamins/Minerals TAB* 1 tab PO DAILY tab 03/02/17 02/07/20 Rx [Theragran/minerals TAB*] Thiamine TAB* [Vitamin B-1 TAB 100 100 mg PO DAILY #30 tab 03/02/17 02/07/20 Rx MG*] Buprenorphine TAB* [Subutex TAB*] 2 mg SL QAM 04/27/17 02/07/20 History Spironolactone TAB* [Aldactone TAB 100 mg PO DAILY 08/03/17 02/07/20 History 25 MG*] Ascorbic Acid TAB* [Vitamin C 500 mg PO DAILY 02/07/20 02/07/20 History TAB*] Cyanocobalamin TAB* [Vitamin B12 500 mcg PO DAILY 02/07/20 02/07/20 History TAB*] Iron Ps Complex/B12/Folic Acid 1 cap PO DAILY 02/07/20 02/07/20 History [Poly-Iron 150 Forte Capsule] L.acidoph,Paracasei, B.lactis 1 each PO DAILY 02/07/20 02/07/20 History [Probiotic] Lactulose* 15 ml PO EVERY OTHER DAY 02/07/20 02/07/20 History Magnesium Oxide TAB* [MagOx 400 400 mg PO DAILY 02/07/20 02/07/20 History TAB*] Methylsulfonylmethane [MSM] 1,000 mg PO DAILY 02/07/20 02/07/20 History Niacin ER CAP* [Niaspan ER CAP*] 500 mg PO DAILY 02/07/20 02/07/20 History Oregano Oil [Oil of Oregano] 1,500 mg PO DAILY 02/07/20 02/07/20 History Reishi Mushroom Extract 1 dose PO .TAKE DIRECTED 02/07/20 02/07/20 History Sertraline* [Zoloft*] 150 mg PO DAILY 02/07/20 02/07/20 History Ubidecarenone [Coq-10] 30 mg PO DAILY 02/07/20 02/07/20 History Gabapentin CAP(*) [Neurontin 100 200 mg PO BID #90 cap 02/11/20 Rx mg CAP(*)] Gabapentin [Neurontin] 200 mg PO BID #180 capsule 02/11/20 Rx Pantoprazole TAB * [Protonix TAB*] 40 mg PO BID #180 tab 02/11/20 Rx Pantoprazole TAB * [Protonix TAB*] 40 mg PO BID #180 tab 02/11/20 Rx traMADol TAB* [Ultram*] 25 mg PO Q8H PRN #30 tab MDD 3 tabs 02/11/20 Rx traMADol TAB* [Ultram*] 50 mg PO Q8H PRN #30 tab MDD 3 tabs 02/11/20 Rx - History of Current Complaint Time Seen by Provider: 02/15/20 10:42 Stated Complaint: GI BLEED PER EMS Hx Obtained From: Patient, EMS Onset/Duration: Started Days Ago Timing: Intermittent Current Severity: None Pain Intensity: 0 Location of Pain: None Associated Signs and Symptoms: Positive: Hematemesis, Diarrhea Aggravating Factor(s): Nothing Alleviating Factor(s): Nothing - Additional Pertinent History Primary Care Physician: [id number] - Allergy/Home Medications Allergies/Adverse Reactions: Allergies Allergy/AdvReac Type Severity Reaction Status Date / Time No Known Allergies Allergy Verified 08/03/17 13:12 Home Medications: Home Medications Folic Acid TAB* [Folvite TAB*] 1 mg PO DAILY #30 tab 03/02/17 [Rx Confirmed ] Multivitamins/Minerals TAB* [Theragran/minerals TAB*] 1 tab PO DAILY tab [Rx Confirmed 02/15/20] Thiamine TAB* [Vitamin B-1 TAB 100 MG*] 100 mg PO DAILY #30 tab 03/02/17 [Rx Confirmed 02/15/20] Buprenorphine TAB* [Subutex TAB*] 2 mg SL QAM 04/27/17 [History Confirmed ] Spironolactone TAB* [Aldactone TAB 25 MG*] 100 mg PO DAILY 08/03/17 [History Confirmed 02/15/20] Ascorbic Acid TAB* [Vitamin C TAB*] 500 mg PO DAILY 02/07/20 [History Confirmed 02/15/20] Cyanocobalamin TAB* [Vitamin B12 TAB*] 500 mcg PO DAILY 02/07/20 [History Confirmed 02/15/20] Iron Ps Complex/B12/Folic Acid [Poly-Iron 150 Forte Capsule] 1 cap PO DAILY [History Confirmed 02/15/20] L.acidoph,Paracasei, B.lactis [Probiotic] 1 each PO DAILY 02/07/20 [History Confirmed 02/15/20] Lactulose* 15 ml PO EVERY OTHER DAY 02/07/20 [History Confirmed 02/15/20] Magnesium Oxide TAB* [MagOx 400 TAB*] 400 mg PO DAILY 02/07/20 [History Confirmed 02/15/20] Methylsulfonylmethane [MSM] 1,000 mg PO DAILY 02/07/20 [History Confirmed ] Niacin ER CAP* [Niaspan ER CAP*] 500 mg PO DAILY 02/07/20 [History Confirmed ] Oregano Oil [Oil of Oregano] 1,500 mg PO DAILY 02/07/20 [History Confirmed 02/14] Reishi Mushroom Extract 1 dose PO .TAKE DIRECTED 02/07/20 [History Confirmed 02/15/20] Sertraline* [Zoloft*] 150 mg PO DAILY 02/07/20 [History Confirmed 02/15/20] Ubidecarenone [Coq-10] 30 mg PO DAILY 02/07/20 [History Confirmed 02/15/20] Gabapentin CAP(*) [Neurontin 100 mg CAP(*)] 200 mg PO BID #90 cap 02/11/20 [Rx Confirmed 02/15/20] Gabapentin [Neurontin] 200 mg PO BID #180 capsule 02/11/20 [Rx Confirmed ] Pantoprazole TAB * [Protonix TAB*] 40 mg PO BID #180 tab 02/11/20 [Rx Confirmed 02/15/20] Pantoprazole TAB * [Protonix TAB*] 40 mg PO BID #180 tab 02/11/20 [Rx Confirmed 02/15/20] traMADol TAB* [Ultram*] 25 mg PO Q8H PRN #30 tab MDD 3 tabs 02/11/20 [Rx Confirmed 02/15/20] traMADol TAB* [Ultram*] 50 mg PO Q8H PRN #30 tab MDD 3 tabs 02/11/20 [Rx Confirmed 02/15/20] PMH/Surg Hx/FS Hx/Imm Hx Endocrine/Hematology History: Denies: Hx Diabetes, Hx Thyroid Disease Cardiovascular History: Denies: Hx Hypertension, Hx Pacemaker/ICD Respiratory History: Denies: Hx Asthma, Hx Chronic Obstructive Pulmonary Disease (COPD) GI History: Reports: Other GI Disorders - ascites, liver failure History: Reports: Hx Kidney Stones - with stenting Sensory History: Denies: Hx Contacts or Glasses, Hx Hearing Aid Opthamlomology History: Denies: Hx Contacts or Glasses Psychiatric History: Reports: Hx Anxiety, Hx Depression, Hx Substance Abuse - ETOH, Other Psychiatric Issues/Disorders - Morgellan syndrome - Surgical History Surgery Procedure, Year, and Place: KIDNEY STENTS, C SECTION Infectious Disease History: Reports: Hx Shingles Denies: Hx Hepatitis, Hx Human Immunodeficiency Virus (HIV) - Family History Known Family History: Positive: Hypertension, Diabetes, Other - depression, no liver disease Negative: Cardiac Disease Family History: NEG GI FHx - Social History Alcohol Use: None Alcohol Amount: Admits to drinking alcohol in the past. Hx Substance Use: Yes Substance Use Type: Reports: Prescribed Substance Use Comment - Amount & Last Used: suboxone- currently denies Hx Tobacco Use: Yes Smoking Status (MU): Former Smoker Type: Cigarettes Amount Used/How Often: 1/2ppd Review of Systems Positive: Vomiting, Diarrhea, Other - Hematemesis Skin: Other - Bilateral leg wounds All Other Systems Reviewed And Are Negative: Yes Physical Exam - Summary Physical Exam Summary: Constitutional: Well-developed, Well-nourished, Alert. (-) Distressed Skin: Warm, Dry, patient is very pale HENT: Normocephalic; Atraumatic Eyes: Conjunctival palor Neck: Musculoskeletal ROM normal neck. (-) JVD, (-) Stridor, (-) Tracheal deviation Cardio: Rhythm regular, rate normal, Heart sounds normal; Intact distal pulses; Radial pulses are 2+ and symmetric. (-) Murmur Pulmonary/Chest wall: Effort normal. (-) Respiratory distress, (-) Wheezes, (-) Rales Abd: Soft, (-) tenderness, (-) Distension, (-) Guarding, (-) Rebound Rectal: Black stool present on DAMIEN Musculoskeletal: (-) Edema Lymph: (-) Cervical adenopathy Neuro: Alert, Oriented x3 Psych: Mood and affect Normal Triage Information Reviewed: Yes Vital Signs Reviewed: Yes Procedures - Sedation Patient Received Moderate/Deep Sedation with Procedure: No Diagnostics - Laboratory Result Diagrams: 02/15/20 10:54 02/15/20 10:54 Lab Statement: Any lab studies that have been ordered have been reviewed, and results considered in the medical decision making process. - Ultrasound Abdomen Ultrasound Ultrasound Interpretation Completed By: Radiologist Summary of Ultrasound Findings: 1. THE LIVER IS ECHOGENIC WITH A MACRONODULAR LOBULATED CONTOUR SUGGESTIVE OF EARLY CIRRHOSIS. 2. THE SPLEEN IS HETEROGENEOUS AND APPEARS PARTIALLY CALCIFIED. THIS IS INCOMPLETELY EVALUATED ON THE CURRENT EXAMINATION. THE DIFFERENTIAL INCLUDES AUTOINFARCTION. RECOMMEND CONSIDERATION OF FURTHER EVALUATION WITH CONTRAST-ENHANCED CT OF THE ABDOMEN. 3. CHOLELITHIASIS. 4. NO ASCITES. ED physician has reviewed this report. GIGU Course/Dx - Course Course Of Treatment: Patient is here with recurrence of her GI bleed. Patient had an EGD last week during her hospital stay which showed a large duodenal ulcer which was not treated as it was not actively bleeding during EGD. Patient had recurrence of bleeding that started yesterday. Patient has a hemoglobin of 3.7 and was given 2 units of packed red blood cells. Patient was given 80 mg of IV Protonix and then started on a Protonix drip. GI was called and saw patient at bedside. Patient was admitted to the ICU. - Diagnoses Provider Diagnoses: GI bleeding, Severe anemia, Hypotension, Duodenal ulcer - Physician Notifications Discussed Care Of Patient With: Brooke Meraz Time Discussed With Above Provider: 11:56 Instructed by Provider To: Other - Discussed with Dr. Meraz who will try to scope the patient today or tomorrow. [12:22] Discussed with Dr. Hagan who declined the patient, she wants her admitted to the ICU. [12:23] Discussed with Dr. Nugent who accepts the patient for admission. Discharge ED - Sign-Out/Discharge Documenting (check all that apply): Patient Departure - Discharge Plan Condition: Stable Disposition: ADMITTED TO [facility] - Billing Disposition and Condition Condition: STABLE Disposition: Admitted to [facility] - Attestation Statements Document Initiated by Carolannibfiliberto: Yes Documenting Scribe: Linda Alexandre Provider For Whom Deepak is Documenting (Include Credential): Hunter Nash MD Scribe Attestation: Linda Rocha, scribed for Hunter Nash MD on 02/15/20 at 1502. Scribe Documentation Reviewed: Yes Provider Attestation: The documentation as recorded by the Linda levin accurately reflects the service I personally performed and the decisions made by me, Hunter Nash MD Status of Scribe Document: Viewed
[2020-02-15] MEDS ORDERED: Pantoprazole IV* 40 MG IV ONE (10:54)
--- OUTSIDE RECORDS SUMMARY | 2020-02-15 11:26 | XMS REPORT | Continuity of Care Document ---
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 Medicine Problems Description No Information Available Social History Type Date Description Comments Sex Unknown ETOH Use Denies alcohol use Tobacco Use Start: Unknown Patient has never smoked Smoking Status Reviewed: 04/21/18 Patient has never smoked Allergies, Adverse Reactions, Alerts Description No Known Drug Allergies Medications Active Medications SIG Qnty Indications Ordering Date Provider Risperidone 1 tab po qpm Unknown 1mg Tablets Co Q-10 1 by mouth every Unknown 200mg Capsules day Sertraline HCL 1 by mouth every Unknown 100mg day Tablets Oil Of Oregano Unknown 1500mg Capsules Alfamin 1 tab po tid Unknown Tablets Spironolactone 1 by mouth bid Unknown 100mg Tablets Furosemide 1 by mouth every Unknown 40mg Tablets day Potassium Chloride ER 1 by mouth bid Unknown 20Meq Tablets ER Lactulose 15 milliliters once Unknown 10GM/15ML a day to aid bowel Solution movement Buprenorphine HCL 1 tab po qd Unknown 2mg Tablets Sub Multi Vitamin 1 by mouth every Unknown Tablets day Folic Acid 1 tab po qd Unknown Tablets Vitamin B-1 1 by mouth every Unknown 100mg Tablets day Ferrous Sulfate 1 by mouth every Unknown 325mg other day Tablets Poly-Iron 150 Take One Capsule By Unknown 150mg Mouth Every Day Capsules Immunizations Description No Information Available Vital Signs Date Vital Result Comment 04/21/2018 10:59am Height 66 inches 5'6" Weight 204.12 lb Heart Rate 84 /min BP Systolic Sitting 142 mmHg BP Diastolic Sitting 74 mmHg Respiratory Rate 14 /min Body Temperature 98.4 F BMI (Body Mass Index) 32.9 kg/m2 03/21/2018 10:01am Height 66 inches 5'6" Weight 201.50 lb Heart Rate 84 /min BP Systolic Sitting 132 mmHg BP Diastolic Sitting 70 mmHg Respiratory Rate 14 /min Body Temperature 97.6 F BMI (Body Mass Index) 32.5 kg/m2 Results Test Acquired Date Facility Test Result H/L Range Note CBC Auto 02/07/2020 [facility] White Blood 27.5 10^3/uL High 3.5-10.[address] [place] [address] [phone] Red Blood Count 0.95 10^6/uL Low 3.70-4.87 Hemoglobin 3.0 g/dL Critical low 12.0-16.0 1 Hematocrit 10 % Low 35-47 Mean Corpuscular Volume 101 fL High 80-97 Mean Corpuscular Hemoglobin 31 pg Normal 27-31 Mean Corpuscular HGB Conc 31 g/dL Normal 31-36 Red Cell Distribution Width 15 % Normal 10-15 Platelet Count 476 10^3/uL High 150-450 Mean Platelet Volume 8.7 fL Normal 7.4-10.4 Abs Neutrophils 23.0 10^3/uL High 1.5-7.7 Abs Lymphocytes 3.6 10^3/uL Normal 1.0-4.8 Abs Monocytes 0.7 10^3/uL Normal 0-0.8 Abs Eosinophils 0.1 10^3/uL Normal 0-0.6 Abs Basophils 0.2 10^3/uL Normal 0-0.2 Abs Nucleated RBC 0.3 10^3/uL Granulocyte % 83.4 % Lymphocyte % 12.9 % Monocyte % 2.4 % Eosinophil % 0.5 % Basophil % 0.8 % Nucleated Red Blood Cells % 1.0 Comp Metabolic 02/07/2020 [facility] Sodium 137 mmol/L Normal 135-[address] [place] [address] [phone] Potassium 3.3 mmol/L Low 3.5-5.0 Chloride 109 mmol/L Normal 101-111 Glucose 286 mg/dL High 70-100 Blood Urea Nitrogen 39 mg/dL High 6-24 Creatinine 1.29 mg/dL High 0.51-0.95 BUN/Creatinine Ratio 30.2 High 8-20 Calcium 7.5 mg/dL Low 8.6-10.3 Total Protein 4.8 g/dL Low 6.4-8.9 Albumin 2.1 g/dL Low 3.2-5.2 Globulin 2.7 g/dL Normal 2-4 Albumin/Globulin Ratio 0.8 Low 1-3 Total Bilirubin 0.20 mg/dL Normal 0.2-1.0 Alkaline Phosphatase 57 U/L Normal 34-104 Alt 11 U/L Normal 7-52 Ast 18 U/L Normal 13-39 Egfr Non- 45.8 >60 Egfr 55.4 >60 2 Co2 Carbon Dioxide 7 mmol/L Critical low 22-32 3 Anion Gap 21 mmol/L High 2-11 Cell Morphology 02/07/2020 [facility] Macrocytosis 1+ [address] [place] [address] [phone] Polychromasia 2+ Anisocytosis 2+ Laboratory test 02/07/2020 [facility] Acetaminophen < 15 g/mL [address] [place] [address] [phone] Salicylate < 2.50 mg/dL <30 Type & Screen 02/07/2020 [facility] Patient Blood Type O Positive [address] [place] [address] [phone] Antibody Screen NEGATIVE Laboratory test 02/07/2020 [facility] Packed Cells SEE RESULTS [address] [place] [address] BELO <SEE NOTE> [place] [address] [phone] Fresh Frozen Plasma SEE RESULTS BEL <SEE NOTE> 6 1 Critical Result HGB:3.0 Called to and read back by: [id number] at: 02/07/2020 11:29:15 by:[id number] 2 Because ethnic data is not always readily available, this report includes an eGFR for both -Americans and non- Americans. The National Kidney Disease Education Program (NKDEP) does not endorse the use of the MDRD equation for patients that are not between the ages of 18 and 70, are , have extremes of body size, muscle mass, or nutritional status, or are non- or non-. According to the National Kidney Foundation, irrespective of diagnosis, the stage of the disease is based on the level of kidney function: Stage Description GFR(mL/min/1.73 m(2)) 1 Kidney damage with normal or decreased GFR 90 2 Kidney damage with mild decrease in GFR 60-89 3 Moderate decrease in GFR 30-59 4 Severe decrease in GFR 15-29 5 Kidney failure <15 (or dialysis) 3 Critical Result CO2:[address] ADAME at: 11:43:41 by:[id number] Read back by:DR ADAME 4 Therapeutic concentration: <50 ug/mL Toxic concentration: >120 ug/mL 5 SEE RESULTS BELOW [id number] OP PC TRANSFUSED 02/07/20 1843 [id number] OP PC TRANSFUSED 02/07/20 1536 [id number] OP PC TRANSFUSED 02/08/20 0023 [id number] OP PC TRANSFUSED 02/07/20 1846 [id number] OP PC TRANSFUSED 02/07/20 1206 [id number] OP PC TRANSFUSED 02/08/20 0318 [id number] OP PC TRANSFUSED 02/09/20 1303 6 SEE RESULTS BELOW [id number] OP FFP TRANSFUSED 02/07/20 1714 Procedures Date Code Description Status 02/07/2020 92493 Insert Non-Tunneled Venous Catether Completed Medical Devices Description No Information Available Encounters Type Date Location Provider Dx Diagnosis Office Visit 02/10/2020 [facility] Presley Hamid, K25.4 Chronic or 10:38a damian Weeks MD unspecified gastric Hospitalists ulcer with hemorrhage Office Visit 02/09/2020 [facility] Julia D62 Acute posthemorrhagic 10:37a Assoc[facility] Stocking, CLIENT RENEWAL SPECIALIST anemia Hospitalists K25.4 Chronic or unspecified gastric ulcer with hemorrhage R57.1 Hypovolemic shock Office Visit 02/07/2020 10:31a Intensivists Lavern Johnson, K92.2 Gastrointestinal MD hemorrhage, unspecified N17.9 Acute kidney failure, unspecified R57.1 Hypovolemic shock Office Visit 10/03/2019 8:30a Wound Care Jefe [id number] Chronic venous Center AT [facility] MD [place] hypertension w ulcer of unsp low extrm Assessments Date Code Description Provider 02/10/2020 K25.4 Chronic or unspecified gastric ulcer with Presley Pastrana MD hemorrhage 02/09/2020 D62 Acute posthemorrhagic anemia Julia Stocking, CLIENT RENEWAL SPECIALIST 02/09/2020 K25.4 Chronic or unspecified gastric ulcer with Julia Stocking , [facility] [place] hemorrhage 02/09/2020 R57.1 Hypovolemic shock Julia Stocking, CLIENT RENEWAL SPECIALIST 02/07/2020 K92.2 Gastrointestinal hemorrhage, unspecified Lavern Johnson MD 02/07/2020 N17.9 Acute kidney failure, unspecified Lavern Johnson MD 02/07/2020 R57.1 Hypovolemic shock Lavern Johnson MD 10/03/2019 I87.319 Chronic venous hypertension (idiopathic) Jefe Bradshaw MD with ulcer of unspecified lower extremity Plan of Treatment 04/21/2018 - Rishi Aparicio M.D.I89.0 Lymphedema, not elsewhere classifiedComments:improving, continue elevationn and Dr Hatch is working on [id number] Unspecified open wound, left lower leg, subsequent encounterComments:not currently infected, call if return of redness or swelling Functional Status Description No Information Available Mental Status Description No Information Available Referrals Description No Information Available
--- OUTSIDE RECORDS SUMMARY | 2020-02-15 11:26 | XMS REPORT | Continuity of Care Document ---
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 Medicine Problems Description No Information Available Social [...] Result H/L Range Note CBC Auto 02/07/2020 [facility] White Blood 27.5 10^3/uL High 3.5-10.[address] [place] [address] [phone] Red Blood Count 0.95 10^6/uL Low 3.70-4.87 [...] Blood Cells % 1.0 Comp Metabolic 02/07/2020 [facility] Sodium 137 mmol/L Normal 135-[address] [place] [address] [phone] Potassium 3.3 mmol/L Low 3.5-5.0 Chloride 109 [...] 21 mmol/L High 2-11 Cell Morphology 02/07/2020 [facility] Macrocytosis 1+ [address] [place] [address] [phone] Polychromasia 2+ Anisocytosis 2+ Laboratory test 02/07/2020 [facility] Acetaminophen < 15 g/mL [address] [place] [address] [phone] Salicylate < 2.50 mg/dL <30 Type & Screen 02/07/2020 [facility] Patient Blood Type O Positive [address] [place] [address] [phone] Antibody Screen NEGATIVE Laboratory test 02/07/2020 [facility] Packed Cells SEE RESULTS [address] [place] [address] BEL <SEE NOTE> [place] [address] [phone] Fresh Frozen Plasma SEE RESULTS [facility] <SEE NOTE> 6 1 Critical Result HGB:3.0 Called to and read back by: [id number] at: 02/07/2020 11:29:15 by:[id number] 2 Because ethnic data is not always [...] CO2:[address] ADAME at: 11:43:41 by:[id number] Read back by:DR ADAME 4 Therapeutic concentration: <50 ug/mL Toxic concentration: >120 ug/mL 5 SEE RESULTS BELOW [id number] OP PC TRANSFUSED 02/07/20 1843 [id number] OP PC TRANSFUSED 02/07/20 1536 [id number] OP PC TRANSFUSED 02/08/20 0023 [id number] OP PC TRANSFUSED 02/07/20 1846 [id number] OP PC TRANSFUSED 02/07/20 1206 [id number] OP PC TRANSFUSED 02/08/20 0318 [id number] OP PC TRANSFUSED 02/09/20 1303 6 SEE RESULTS BELOW [id number] OP FFP TRANSFUSED 02/07/20 1714 Procedures Date Code Description Status 02/07/2020 37762 Insert Non-Tunneled Venous Catether Completed Medical Devices Description No Information Available Encounters Type Date Location Provider Dx Diagnosis Office Visit 02/10/2020 [facility] Presley Hamid, K25.4 Chronic or 10:38a damian Weeks MD unspecified gastric Hospitalists ulcer with hemorrhage Office Visit 02/09/2020 [facility] Julia D62 Acute posthemorrhagic 10:37a Assoc,pc Stocking, RN PROGRESSIVE CARE UNIT anemia Hospitalists K25.4 Chronic or unspecified gastric ulcer with hemorrhage R57.1 Hypovolemic shock Office Visit 02/07/2020 10:31a Intensivists Lavern Johnson, K92.2 Gastrointestinal MD hemorrhage, unspecified N17.9 Acute kidney failure, unspecified R57.1 Hypovolemic shock Office Visit 10/03/2019 8:30a Wound Care Jefe [id number] Chronic venous Center [facility] [place] hypertension w ulcer of unsp low extrm Assessments Date Code Description Provider 02/10/2020 K25.4 Chronic or unspecified gastric ulcer with Presley Pastrana MD hemorrhage 02/09/2020 D62 Acute posthemorrhagic anemia Julia Stocking, RN PROGRESSIVE CARE UNIT 02/09/2020 K25.4 Chronic or unspecified gastric ulcer with Julia Stocking , RN PROGRESSIVE CARE UNIT hemorrhage 02/09/2020 R57.1 Hypovolemic shock Julia Stocking, [facility] 02/07/2020 K92.2 Gastrointestinal hemorrhage, unspecified Lavern Johnson MD 02/07/2020 N17.9 Acute kidney failure, unspecified Lavern Johnson MD 02/07/2020 R57.1 Hypovolemic shock Lavern Johnson MD 10/03/2019 I87.319 Chronic venous hypertension (idiopathic) Jefe Bradshaw MD with ulcer of unspecified lower extremity Plan of Treatment 04/21/2018 - Rishi Aparicio M.D.I89.0 Lymphedema, not elsewhere classifiedComments:improving, continue elevationn and Dr Hatch is working on [id number] Unspecified open wound, left lower leg, subsequent encounterComments:not currently infected, call if return of redness or swelling Functional Status Description No Information Available Mental Status Description No Information Available Referrals Description No Information Available
--- OUTSIDE RECORDS SUMMARY | 2020-02-15 11:26 | XMS REPORT | Continuity of Care Document ---
:1980 External Reference #:[id number] Author Name Presley Pastrana MD (transmitted by agent of provider Ena Goncalves) Address [address], [address] [place] [address] Care Team Providers Name Role Phone Patricio Robertson MD - Internal Care Team Information Dental Office Manager Medicine Problems Description No Information Available Social [...] Result H/L Range Note CBC Auto 02/07/2020 [facility] White Blood 27.5 10^3/uL High 3.5-10.[address] [place] [address] [phone] Red Blood Count 0.95 10^6/uL Low 3.70-4.87 [...] Blood Cells % 1.0 Comp Metabolic 02/07/2020 [facility] Sodium 137 mmol/L Normal 135-[address] [place] [address] [phone] Potassium 3.3 mmol/L Low 3.5-5.0 Chloride 109 [...] 21 mmol/L High 2-11 Cell Morphology 02/07/2020 [facility] Macrocytosis 1+ [address] [place] [address] [phone] Polychromasia 2+ Anisocytosis 2+ Laboratory test 02/07/2020 [facility] Acetaminophen < 15 g/mL [address] [place] [address] [phone] Salicylate < 2.50 mg/dL <30 Type & Screen 02/07/2020 [facility] Patient Blood Type O Positive [address] [place] [address] [phone] Antibody Screen NEGATIVE Laboratory test 02/07/2020 [facility] Packed Cells SEE RESULTS 5 finding [address] [facility] BEL <SEE NOTE> [place] [address] [phone] Fresh Frozen Plasma SEE RESULTS BEL <SEE NOTE> 6 1 Critical Result HGB:3.0 Called to and read back by: [id number] at: 02/07/2020 11:29:15 by:[id number] 2 Because ethnic data is not always [...] CO2:[address] ADAME at: 11:43:41 by:[id number] Read back by:DR ADAME 4 Therapeutic concentration: <50 ug/mL Toxic concentration: >120 ug/mL 5 SEE RESULTS BELOW [id number] OP PC TRANSFUSED 02/07/20 1843 [id number] OP PC TRANSFUSED 02/07/20 1536 [id number] OP PC TRANSFUSED 02/08/20 0023 [id number] OP PC TRANSFUSED 02/07/20 1846 [id number] OP PC TRANSFUSED 02/07/20 1206 [id number] OP PC TRANSFUSED 02/08/20 0318 [id number] OP PC TRANSFUSED 02/09/20 1303 6 SEE RESULTS BELOW [id number] OP FFP TRANSFUSED 02/07/20 1714 Procedures Date Code Description Status 02/07/2020 47876 Insert Non-Tunneled Venous Catether Completed Medical Devices Description No Information Available Encounters Type Date Location Provider Dx Diagnosis Office Visit 02/10/2020 [facility] Presley Hamid, K25.4 Chronic or 10:38a damian Weeks MD unspecified gastric Hospitalists ulcer with hemorrhage Office Visit 02/09/2020 [facility] Julia D62 Acute posthemorrhagic 10:37a [facility], [employer] anemia Hospitalists K25.4 Chronic or unspecified gastric [...] 02/09/2020 D62 Acute posthemorrhagic anemia Julia [facility], [employer] 02/09/2020 K25.4 Chronic or unspecified gastric ulcer with Julia [facility] , [employer] hemorrhage 02/09/2020 R57.1 Hypovolemic shock Julia [facility], [employer] 02/07/2020 K92.2 Gastrointestinal hemorrhage, unspecified Lavern Johnson MD 02/07/2020 N17.9 Acute kidney failure, unspecified Lavern Johnson MD 02/07/2020 R57.1 Hypovolemic shock Lavern Johnson MD 10/03/2019 I87.319 Chronic venous hypertension (idiopathic) Jefe Bradshaw MD with ulcer of unspecified lower extremity Plan of Treatment 04/21/2018 - Rishi Aparicio M.D.I89.0 Lymphedema, not elsewhere classifiedComments:improving, continue elevationn and Dr Hatch is working on ftbfxH55.802D Unspecified open wound, left lower leg, subsequent encounterComments:not currently infected, call if return of redness or swelling Functional Status Description No Information Available Mental Status Description No Information Available Referrals Description No Information Available
[2020-02-15 11:30] LABS: Hematocrit 11 % (35-47); Hemoglobin 3.7 g/dL (12.0-16.0); Mean Corpuscular HGB Conc 34 g/dL (31-36); Mean Corpuscular Hemoglobin 31 pg (27-31); Mean Corpuscular Volume 91 fL (80-97); Mean Platelet Volume 8.6 fL (7.4-10.4); Platelet Count 244 10^3/uL (150-450); Red Blood Count 1.19 10^6 /uL (3.70-4.87); Red Cell Distribution Width 15 % (10-15); White Blood Count 8.4 10^3/uL (3.5-10.8)
[2020-02-15 11:32] LABS: INR 1.27 (0.82-1.09)
[2020-02-15 11:43] LABS: Albumin 2.2 g/dL (3.2-5.2); BUN/Creatinine Ratio 18.9 (8-20); Calcium 7.4 mg/dL (8.6-10.3); EGFR African American 78.8 (>60); EGFR Non-African American 65.2 (>60); Globulin 2.2 g/dL (2-4); Total Bilirubin 0.3 mg/dL (0.2-1.0); Total Protein 4.4 g/dL (6.4-8.9)
[2020-02-15 11:58] LABS: ABS Basophils 0.1 10^3/ul (0-0.2); ABS Eosinophils 0.1 10^3/ul (0-0.6); ABS Lymphocytes 1.2 10^3/ul (1.0-4.8); ABS Monocytes 0.3 10^3/ul (0-0.8); ABS Neutrophils 6.7 10^3/ul (1.5-7.7); Lymphocyte % 14.5 %; Nucleated Red Blood Cells % 0.1; Polychromasia 1+
[2020-02-15] MEDS ORDERED: Pantoprazole* 80 mg IN NS 80 MG/250 ML BAG IV ONE (12:00)
[2020-02-15] MEDS ORDERED: Phytonadione IV (Adult)* 10 MG/ML 1 ML AMP IV ONE (12:44)
[2020-02-15] MEDS ORDERED: Ondansetron INJ* 2 MG/ML VIAL IV ONE (12:57)
[2020-02-15] MEDS ORDERED: Phytonadione 10 mg in 50 mL NS over 30 min IV ONE (13:30)
[2020-02-15 13:33] LABS: C Reactive Protein 24.84 mg/L (<8.01)
[2020-02-15] MEDS ORDERED: Octreotide Acetate* 50 MCG in NS 0.9% 50 ML* 50 ML IV ONE (14:04)
--- NOTE | 2020-02-15 14:08 | CONS ---
GASTROENTEROLOGY CONSULT REPORT: DATE OF CONSULT: 02/15/20 LOCATION: The patient was seen in the ER. REQUESTING PROVIDER: ED. REASON FOR CONSULT: GI bleeding. HISTORY OF PRESENT ILLNESS: Ms. Martinez is a 39-year-old woman with a history of alcoholism, questionable underlying liver disease, bilateral leg ulcers, and recent GI bleeding related to esophagitis and peptic ulcer disease, who is admitted with recurrent GI bleeding. Ms. Martinez was hospitalized from 02/07/20 to 02/11/20. At that time, she was noted to have hemorrhagic shock related to an upper GI bleed. Hemoglobin was 3. She was given multiple units of blood and monitored in the ICU. She underwent an upper endoscopy, which demonstrated severe erosive esophagitis, multiple small gastric ulcers, and a large circumferential ulcer in the duodenum with high-risk features. No active bleeding seen at the time of scope. She was managed with a course of IV PPI and then transferred to the floor. She was noted to have head lice, which was treated. She was discharged with a hemoglobin of 7.1. Ms. Martinez presents today to the ED. She reported that yesterday morning, afternoon and evening she had episodes of hematemesis. She describes seeing dark red blood and clots in the vomit. Last episode of hematemesis was at 11 p.m. She has been having normal brown bowel movements, although yesterday she had looser stools. The stool yesterday did contain dark brown and dark red clotted blood. She reports weakness and shortness of breath with exertion. Denies any nausea or abdominal pain. Has been using PPI twice daily as recommended. Has no longer been using NSAIDs. In the ED, Ms. Martinez was noted to have a hemoglobin of 3.7 with a hematocrit of 11. She was noted to be febrile to 101.4. Heart rate was in the 110s to 120s. Blood pressure in the 80s to 90 systolic. She is being admitted to the ICU and given fluids and blood. GI consulted. PAST MEDICAL HISTORY: 1. Alcoholism. 2. Question of underlying hepatic insufficiency or liver disease. Reportedly has had ascites in the past. Not clear if she has ever been diagnosed with cirrhosis. 3. Depression/anxiety. 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 5. Osteoarthritis. 6. History of opioid dependence. PAST SURGICAL HISTORY: Kidney stent and . HOME MEDICATIONS: Include: 1. Folic acid daily. 2. Multivitamin daily. 3. Thiamine 100 mg daily. 4. Buprenorphine 2 mg every morning. 5. Spironolactone 100 mg daily. 6. Ascorbic acid 500 mg daily. 7. Vitamin B12 500 mcg daily. 8. Poly-Iron daily. 9. Probiotic daily. 10. Lactulose 15 mL every other day. 11. Magnesium oxide 400 mg daily. 12. MSM 1000 mg daily. 13. Niacin 500 mg daily. 14. Sertraline 150 mg daily. 15. Pantoprazole 40 mg twice daily. 16. Tramadol 25 to 50 mg every 8 hours as needed. 17. Gabapentin 200 mg twice daily. ALLERGIES: No known allergies. FAMILY HISTORY: No known GI or liver disease in the family. SOCIAL HISTORY: Lives at home with . Was noted to be actively drinking last week on her admission. Smokes cigarettes. REVIEW OF SYSTEMS: A complete 12-point review of systems is negative except as mentioned above. Of note, the patient reports shortness of breath with movement , although she denies any cough or shortness of breath at rest. She denies being febrile at home. She denies any sick contacts. She lives with children and . PHYSICAL EXAM: Vital Signs: Reviewed. Temp 101.4, heart rate 110s to 120s. Blood pressure low at 87/46, although stable. General: Very pale-appearing woman. Resting. No acute distress. HEENT: Mucous membranes moist. Cardiovascular: Regular rate and rhythm. Pulmonary: Breathing comfortably. No coughing. Abdomen: Soft, nondistended, nontender. Rectal: Melena per ED rectal exam, not repeated. Extremities: Bilateral leg wounds, which are currently wrapped. Positive edema. Neuro: A and O x3. Does not appear to be encephalopathic. DIAGNOSTIC STUDIES/LAB DATA: Labs reviewed. White count 8.4, hemoglobin 3.7, hematocrit 11. INR 1.27. Glucose 152, lactic acid 3, calcium 7.4. AST 15, ALT 15, alk phos 50, bilirubin 0.3. Albumin 2.2. Imaging: No imaging this admission yet. IMPRESSION AND RECOMMENDATIONS: Ms. Martinez is a 39-year-old woman with a history of alcoholism, possible underlying liver disease, and recent significant gastrointestinal bleed secondary to peptic ulcer disease, who is readmitted with severe acute anemia and hematemesis. The patient was noted to have severe esophagitis, multiple gastric erosions, and a very large concerning duodenal ulcer during her last hospitalization. Unfortunately, she presents with 3 episodes of hematemesis yesterday. Last episode was at 11 p.m. She is febrile today of unclear source. Blood pressure is borderline low in the 80s to 90 systolic. Heart rate is tachycardic in the 110s to 120s. Hemoglobin is extremely low at 3.7. The patient is not having any hematemesis within the last few hours, which is somewhat encouraging. I agree with transfer to the ICU and aggressive resuscitation. We will need to have a second-look upper endoscopy once she has a hemoglobin that is stable above 7. I am concerned based on prior description of the duodenal ulcer that this is quite high risk. If there is no clear endoscopic target, then we will need to consider discussing with IR colleagues versus Surgery. This decision making will likely be influenced by clinical course as well as the endoscopy findings. Agree with IV PPI. For her fever workup, I would recommend checking an abdominal ultrasound to evaluate for ascites. The possibility of underlying liver disease has been raised. If she in fact does have underlying cirrhosis with ascites, then bacterial translocation and spontaneous bacterial peritonitis can develop in the setting of a gastrointestinal bleed. If no significant ascites, then I would encourage the team to think broadly about infectious etiologies given the fever to 101.4. Hopefully, we will be able to perform an upper endoscopy tomorrow assuming she is able to be resuscitated and remain stable. We would keep n.p.o. Thank you very much for this consult. GI will continue to follow along closely. [id number]/[facility] #: [id number] ELPIDIO
[2020-02-15] MEDS ORDERED: cefTRIAXone(*) 1 GM in NS 0.9% 50 ML* 50 ML IVPB SCH (15:00)
[2020-02-15] MEDS ORDERED: Octreotide Acetate* 500 MCG in NS 0.9% 100 ML* 100 ML IV SCH (15:00)
[2020-02-15] MEDS: Morphine INJ* 2 MG/ML 1 ML SYRINGE (TWO MG - NEW SYRINGE VERSION) IV PRN ×3 (15:23→22:59)
--- NOTE | 2020-02-15 16:29 | HP ---
CC: Dr. Robertson * CRITICAL CARE HISTORY AND PHYSICAL: DATE OF ADMISSION: 02/15/20 PRIMARY CARE PHYSICIAN: Dr. Robertson. ATTENDING PHYSICIAN: Dr. Rob Nugent * (dictation provided by Palak Molina NP). CHIEF COMPLAINT: Vomiting of blood, black stool and lightheadedness. HISTORY OF PRESENT ILLNESS: Ms. Martinez is a 39-year-old female who was just discharged from our hospital on 02/11/20 after being treated for an upper GI bleed. She had been admitted to our hospital from 02/07/20 through 02/11/20. She had presented on 02/07/20 with concern for similar symptoms and a similarly low hemoglobin at 3.0. The patient had an upper endoscopy which revealed some esophagitis, no variceal bleeding, multiple small gastric ulcers in the antrum and body and very large circumferential ulcer in D2, D3 likely GDA territory with high risk features. During the admission, she received 8 units of blood and 1 unit of fresh frozen plasma. She was started on a protein pump inhibitor. It was determined that she had been taking copious amounts of ibuprofen because of bilateral lower extremity pain related to venous stasis ulcerations. She was discharged to home on 02/11/20 with a hemoglobin of 7.1 and asymptomatic with plan to follow up outpatient with GI. Ms. Martinez states she was feeling well for the first few days; however, yesterday she began vomiting bright red blood again, she also had black tarry stools. This continued through the night and then this morning she decided to come to the hospital for evaluation. She describes lightheadedness and dizziness. In the emergency room, Ms. Martinez had labs that showed her hemoglobin was again low at 3.7. She is mildly tachycardic, running heart rate about 110. She is also febrile with a temperature of 101.4. She denies fever at home. She denies any cough, upper respiratory symptoms. She has had no chest pain, no shortness of breath. She denies abdominal pain. She denies abdominal distention. PAST MEDICAL HISTORY: 1. Large duodenal ulcer with upper GI bleeding and symptomatic anemia. 2. Venous stasis ulcerations, chronic x2 to 3 years. 3. Unspecified liver disease, possible alcoholic with history of alcoholism. No known ascites or variceal bleeding. 4. Depression. 5. Anxiety. 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 7. History of alcohol abuse. 8. History of opioid dependency in 2009 to 2016, in remission. 9. History of cholestasis x2 in . MEDICATIONS: 1. Tramadol 25 mg q.8 hours p.r.n. pain. 2. CoQ10 30 mg p.o. daily. 3. Thiamine 100 mg p.o. daily. 4. Spironolactone 100 mg p.o. daily. 5. Sertraline 150 mg p.o. daily. 6. Mushroom extract as directed. 7. Pantoprazole 40 mg p.o. b.i.d. 8. Oregano oil 1500 mg p.o. daily. 9. Niacin ER 500 mg p.o. daily. 10. Multivitamin mineral 1 tab p.o. daily. 11. Methylsulfonylmethane 1000 mg p.o. daily. 12. Magnesium oxide 400 mg p.o. daily. 13. Lactulose 15 mL p.o. every other day. 14. Probiotic 1 tab each day. 15. Folic acid with iron 1 cap p.o. daily. 16. Gabapentin 200 mg p.o. b.i.d. 17. Cyanocobalamin 500 mcg p.o. daily. 18. Buprenorphine 2 mg sublingually q.a.m. 19. Ascorbic acid 500 mg p.o. daily. ALLERGIES: No known drug allergies. FAMILY HISTORY: The patient reports her father related to I believe a pulmonary problem and mother related to bladder cancer. SOCIAL HISTORY: The patient is a former smoker, stating that she quit 2 weeks ago. She is former alcoholic and former opioid abuse disorder. She lives with her , states he will be the healthcare proxy. REVIEW OF SYSTEMS: A 14-point review of systems was completed with Ms. Martinez and all those not mentioned above were negative. PHYSICAL EXAMINATION GENERAL: Ms. Martinez is lying in the bed. She appears very pale, but she is in no acute distress. VITAL SIGNS: Temperature 101.4, pulse rate 107, respiratory rate 15, O2 saturation 95% on 4 L nasal cannula, blood pressure 93/47. LUNGS: Clear to auscultation bilaterally with no accessory muscle use and good aeration. HEART: S1, S2. No murmur, rub, or gallop and regular. ABDOMEN: Soft and nontender with bowel sounds positive x4. EXTREMITIES: No cyanosis. Positive for bilateral lower extremity edema. NEURO: She is alert. She is oriented x3. She moves all extremities equally. There is no facial asymmetry or focal weakness. Extraocular movements are intact. SKIN: The patient has essentially circumferential ulcerations to bilateral ankles and calves. She also has ulcerations between multiple toes on bilateral feet. Chronic venous stasis changes noted. No erythema. Positive for clear drainage only. DIAGNOSTIC STUDIES/LAB DATA: WBC 8.4, hemoglobin 30.7, hematocrit 11, platelet count 244. INR 1.27. Sodium 137, potassium 4.0, chloride 107, serum carbonate 23, BUN 18, creatinine 0.95, glucose 152, lactic acid 3.0, CRP 24.84. The patient has had an abdominal ultrasound, which was read as follows: "Liver is echogenic with a micronodular lobulated contour suggestive of early cirrhosis. The spleen is heterogenous and appears partially calcified, this was then completely evaluated. On the current examination, the differential includes autoinfarction. Recommend consideration for further evaluation with contrast enhanced CT of the abdomen, cholelithiasis and no ascites." The chest x-ray is read as follows: "No active cardiopulmonary disease." ASSESSMENT AND PLAN: Ms. Martinez is a 39-year-old female with past medical history of upper gastrointestinal bleed secondary to duodenal ulcer with recent admission to the hospital and discharge on 02/11/20, who presents today with concern for upper gastrointestinal bleeding and vomiting of bright red blood. Her diagnoses are as follows: 1. Upper gastrointestinal bleed secondary to large duodenal ulcer thought to be secondary to excessive ibuprofen use. 2. Chronic venous stasis ulcers. 3. Fever and SIRS with no clear evidence of infection. 4. Chronic pain. 5. Opioid use disorder. 6. Smoking history. Plan is as follows: 1. Neuro: The patient's mentation is intact. There are no active issues. We will continue with thiamine and folic acid supplementation. 2. Cardiovascular: The patient is mildly tachycardic and I think this is secondary to her anemia and GI bleeding. Plan to continue with packed red blood cells, which are infusing now. Her blood pressure is running systolically in the 90s with a MAP greater than 60. If she has any hemodynamic instability, we will add vasopressors and intravenous fluids. 3. Pulmonary: The patient is on oxygen at the moment, but I will plan to wean as tolerated as she is at 100% right now. Again, her chest x-ray is clear. She says no report of pulmonary symptoms. 4. ID: She does have a fever. There is some suspicion that perhaps this is simply related to her GI bleed. There was concern for possible SBP, but the patient has no ascites on her abdominal ultrasound. Her abdomen is soft and nontender throughout. Plan to check urinalysis and blood cultures. I do not plan to start antibiotics now. 5. GI: Appreciate the consultation for Dr. Meraz who is considering upper endoscopy to evaluate the ulcer. If there is continued bleeding, it is anticipated that she will need surgery or Interventional Radiology intervention. For now, she will be n.p.o. She will continue on Protonix. 6. Renal: The patient's creatinine is normal. We will monitor closely. 7. Heme: The patient has an anemia secondary to GI bleeding. Plan to treat with packed red blood cells and have hemoglobin checked q.6 hours until stabilized. We will continue with thiamine and folic acid. 8. Endocrine: BGs are stable. No history of diabetes. 9. Musculoskeletal, skin: Plan to obtain a wound care consult. For now, I have added wound care instructions for the nursing staff. This is a chronic issue and does not appear to be acutely infected. 10. DVT prophylaxis: The patient cannot have SCDs due to significant bilateral lower extremity wounds and cannot have heparin subcu or other chemical prophylaxis due to anemia, but we will readdress daily and add when possible. 11. Disposition to the critical care unit, was need for management of concern for development of hemorrhagic shock in the setting of GI bleed with anemia with hemoglobin of 3. 12. Clinical status: Critical. 13. Code status is full code. TIME SPENT: Approximately 60 minutes was spent on the admission of this patient , more than half the time spent with the patient at the bedside reviewing the events leading up to this hospitalization, performing the physical examination, and reviewing my plan of care. PALAK MOLINA NP [id number]/[facility] #: [id number] ELPIDIO
[2020-02-15 20:21] LABS: Hematocrit 14 % (35-47)
[2020-02-15] MEDS: Pantoprazole* 80 mg IN NS 80 MG/250 ML BAG IV SCH (21:55)
[2020-02-16 03:24] LABS: Hematocrit 17 % (35-47); Hemoglobin 5.9 g/dL (12.0-16.0)
[2020-02-16 03:34] LABS: BUN/Creatinine Ratio 16.5 (8-20); Calcium 6.9 mg/dL (8.6-10.3); EGFR Non-African American 63.6 (>60); Potassium 3.9 mmol/L (3.5-5.0)
[2020-02-16] MEDS: Morphine INJ* 2 MG/ML 1 ML SYRINGE (TWO MG - NEW SYRINGE VERSION) IV PRN ×3 (04:41→14:37)
[2020-02-16] MEDS: Pantoprazole* 80 mg IN NS 80 MG/250 ML BAG IV SCH (08:06)
[2020-02-16] MEDS ORDERED: Lactated Ringers 1000 ML Bag* 1,000 ML IV SCH (12:00)
[2020-02-16] MEDS ORDERED: Lorazepam PYXIS KEY PRN (12:20)
[2020-02-16] MEDS ORDERED: LORazepam INJ* 2 MG/ML 1 ML VIAL IV PUSH PRN (12:20)
[2020-02-16 12:46] LABS: Hematocrit 21 % (35-47)
--- NOTE | 2020-02-16 13:06 | PN ---
Critical Care Services: Patient remains clinically stable - she has received 6 units packed cells, with Hb up to 7. Has been normotensive overnight. Vital Signs: Temp Pulse Resp BP SpO2 FiO2 97.9 F 68 17 122/56 99 RA Physical Exam: Gen: Alert, oriented, and resting comfortably Lungs: Clear Cardiac: Reg rhythm. No murmurs Abdomen: Nontender. Not distended Extremities: Warm. No cyanosis or edema. Fluid Balance (Past 24 Hours): 02/16/20 06:59 Intake Total 1908 Output Total 0 Balance 1908 Weight 255 lb 5 oz Intake: IV Fluids 46 Phytonadione 46 IVPB 56 Phytonadione 56 Medicated IV 439 GEN - Octreotide 56 GEN - Pantoprazole/ 383 Protonix Oral 0 Packed Cells 1367 Output: Urine 0 Other: Estimated Void Large Date of Last Bowel 02/15/20 Movement # Bowel Movements 1 Estimated Stool Amount Small # Voids 1 Labs: 02/15/20 02/15/20 02/15/20 10:54 10:54 19:50 Hgb 4.9 L* Hct 14 L Sodium 137 Potassium 4.0 Chloride 107 Carbon Dioxide 23 Anion Gap 7 BUN 18 Creatinine 0.95 Est GFR ( Amer) 78.8 Est GFR (Non-Af Amer) 65.2 BUN/Creatinine Ratio 18.9 Glucose 152 H Lactic Acid Calcium 7.4 L Total Bilirubin 0.30 AST 15 ALT 15 Alkaline Phosphatase 50 C-Reactive Protein 24.84 H Total Protein 4.4 L Albumin 2.2 L Globulin 2.2 Albumin/Globulin Ratio 1.0 Lipase 22 Blood Type O Positive Antibody Screen Negative Crossmatch See Detail 02/16/20 02/16/20 02/16/20 03:00 03:00 11:13 Hgb 5.9 L* Hct 17 L Sodium 137 Potassium 3.9 Chloride 110 Carbon Dioxide 23 Anion Gap 4 BUN 16 Creatinine 0.97 H Est GFR ( Amer) 77.0 Est GFR (Non-Af Amer) 63.6 BUN/Creatinine Ratio 16.5 Glucose 111 H Lactic Acid 0.7 Calcium 6.9 L Total Bilirubin AST ALT Alkaline Phosphatase C-Reactive Protein Total Protein Albumin Globulin Albumin/Globulin Ratio Lipase Blood Type Antibody Screen Crossmatch 02/16/20 11:59 Hgb 7.0 L Hct 21 L Sodium Potassium Chloride Carbon Dioxide Anion Gap BUN Creatinine Est GFR ( Amer) Est GFR (Non-Af Amer) BUN/Creatinine Ratio Glucose Lactic Acid Calcium Total Bilirubin AST ALT Alkaline Phosphatase C-Reactive Protein Total Protein Albumin Globulin Albumin/Globulin Ratio Lipase Blood Type Antibody Screen Crossmatch Studies: None Nutrition: NPO Impression: Upper GI bleeding, presumably from large duodenal ulcer, which has not caused hemodynamic compromise but has required blood replacement of 6 units so far Plan: Patient to be transferred to [facility] for GDA embolization. In mantime, will give another unit packed RBCs to get Hb above 7 g/dL. Critical Care Time: 30 minutes
--- NOTE | 2020-02-16 14:16 | DS ---
DISCHARGE SUMMARY: DATE OF ADMISSION: 02/15/20 DATE OF DISCHARGE: 02/16/20 REASON FOR ADMISSION: Acute upper GI hemorrhage. HOSPITAL COURSE: This patient is a 39-year-old female who was recently hospitalized here with upper GI bleeding secondary to gastroduodenal ulceration with a large duodenal ulcer, the main culprit. Th e patient was discharged on 02/11/20 and now returns on 02/15/20 with nausea, vomiting, and bloody st ools. Initial hemoglobin in the emergency department was 3.7 and the patient was subsequently admitte d and transfused with 6 units total of packed cells with an increase in the hemoglobin from 3.7 to 7. 0. Lactate on admission of 3.0, decreased to 0.7 the day following admission. The patient was hemod ynamically stable throughout the hospitalization and blood pressure on transfer was 122/78. Plan is to transfer the patient to [facility] for arterial embolization. The patient has been accepted by the designated hospital. FINAL DIAGNOSES: 1. Peptic ulcer disease with gastrointestinal bleeding. 2. 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 MANAGEMENT: 1. Protonix drip. 2. Infusion of saline at 75 cc per hour. 3. Blood products p.r.n. CONDITION ON DISCHARGE: Clinically stable. DISPOSITION: Immediate transfer to [facility] via ALS ambulance. [id number]/[facility] #: [id number]
[2020-02-16 14:30] LABS: Urine Appearance Clear; Urine Bilirubin Negative (Negative); Urine Blood 3+ (Negative); Urine Color Yellow; Urine Glucose Negative (Negative); Urine Ketones Negative (Negative); Urine Nitrite Negative (Negative); Urine Protein Negative (Negative); Urine Specific Gravity 1.015 (1.010-1.030); Urine Urobilinogen Negative (Negative)
[2020-02-16 14:31] LABS: Urine Bacteria Absent (Absent); Urine Red Blood Cell Trace(0-2/hpf) (Absent); Urine Squamous Epithelial Cell Present (Absent); Urine White Blood Cell Trace(0-5/hpf) (Absent)
[2020-02-16 15:50] VITALS: BP 100/56
[2020-02-16] MEDS ORDERED: Ondansetron INJ* 2 MG/ML VIAL IV ONE (16:07)
[2020-02-16] MEDS ORDERED: Ondansetron INJ* 2 MG/ML VIAL ONE (16:09)
[2020-02-19 13:18] LABS: Hemoglobin 4.9 g/dL (12.0-16.0)
== END 2020-02-16 16:15 | disposition short-term general hospital (02) | DRG 378 ==
LOC: ED 10:38 → UNDOADMIN 12:37 → ICU 12:37
PROVIDERS: ADMIT Internal Medicine Critical Care Medicine; ATTEND Internal Medicine Critical Care Medicine
PROC: 30233N1 Transfusion of Nonautologous Red Blood Cells into Peripheral Vein, Percutaneous Approach (ICD-10-PCS; principal; 2020-02-15)
DX: K26.0 Acute duodenal ulcer with hemorrhage (principal); D62 Acute posthemorrhagic anemia; R65.10 Systemic inflammatory response syndrome (SIRS) of non-infectious origin without acute organ dysfunction; L28.0 Lichen simplex chronicus; F55.8 Abuse of other non-psychoactive substances; I87.2 Venous insufficiency (chronic) (peripheral); F32.9 Major depressive disorder, single episode, unspecified; F41.9 Anxiety disorder, unspecified; F11.21 Opioid dependence, in remission; K70.9 Alcoholic liver disease, unspecified; F10.20 Alcohol dependence, uncomplicated; L98.8 Other specified disorders of the skin and subcutaneous tissue; Z79.899 Other long term (current) drug therapy; Z82.5 Family history of asthma and other chronic lower respiratory diseases; Z80.52 Family history of malignant neoplasm of bladder; Z87.891 Personal history of nicotine dependence
CPT/HCPCS: 36415; 71045; 76705; 80048; 80053; 81003; 81015; 82272; 83605; 83690; 85014; 85018; 85025; 85610; 86140; 86850; 86900; 86901; 86922; 87040; 87086; 96374; 96376; 99285; J0696; J2060; J2270; J2354; J2405; J3430; P9040

== ENCOUNTER 2023-12-29 18:06 | Inpatient (IN) ==
[2023-12-29] MEDS: Morphine 4 MG/ML VIAL (1 ml) IV ONE ×2 (19:59→22:17)
[2023-12-29 20:08] LABS: ABS Lymphocytes 0.9 10^3/uL (1.0-4.8); ABS Monocytes 0.6 10^3/uL (0.0-0.9); ABS Nucleated RBC 0.01 10^3/ul; Hematocrit 24.2 % (35-45); Hemoglobin 8.1 g/dL (11.5-14.3); Mean Corpuscular Hemoglobin 33.2 pg (27-33); Mean Corpuscular Hgb Conc 33.6 g/dL (31-36); Mean Corpuscular Volume 98.9 fL (80-97); Mean Platelet Volume 6.7 fL (7.5-11.2); Nucleated Red Blood Cells % 0.1 %/100WBC (0.0-0.8); Platelet Count 261 10^3/uL (150-450); Red Blood Count 2.45 10^6/uL (3.63-4.92); White Blood Count 11.6 10^3/uL (3.8-11.8)
[2023-12-29] MEDS: Cefepime 1 GM in Dextrose 1 GM/50 ML BAG IV ONE (20:23)
[2023-12-29 20:28] LABS: ALT 37 U/L (7-52); AST 80 U/L (13-39); Albumin 3.2 g/dL (3.2-5.2); Albumin/Globulin Ratio 0.6 (1-3); Alkaline Phosphatase 146 U/L (35-149); Anion Gap 15 mmol/L (2-16); Blood Urea Nitrogen 17 mg/dL (6-24); C Reactive Protein 392.64 mg/L (<8.01); CO2 Carbon Dioxide 19 mmol/L (22-32); Calcium 9.9 mg/dL (8.6-10.3); Chloride 100 mmol/L (101-111); Globulin 5.2 g/dL (2-4); Glucose 130 mg/dL (70-100); Potassium 2.9 mmol/L (3.5-5.0); Sodium 134 mmol/L (135-145); Total Bilirubin 0.6 mg/dL (0.2-1.0); Total Protein 8.4 g/dL (6.4-8.9); eGFR CKD-EPI 109.3 (>60)
[2023-12-29] MEDS: Vancomycin 1,500 MG in NS 0.9% 250 ml 250 ML IVPB ONE (20:28)
[2023-12-29 20:34] LABS: Alcohol, S < 13 mg/dL (<13); HCG Pregnancy < 0.60 mIU/mL
[2023-12-29] MEDS ORDERED: Ondansetron 4 mg VIAL 2 MG/ML 2 ml VIAL IV PRN ×2 (22:31→23:01)
[2023-12-29] MEDS ORDERED: Vancomycin per Pharmacy 1 EA NOTE FOLLOW UP SCH (23:00)
[2023-12-29 23:16] LABS: Magnesium 1.7 mg/dL (1.9-2.7)
[2023-12-29 23:29] LABS: Creatine Kinase 792 U/L (10-223)
[2023-12-29] MEDS: Enoxaparin 40 MG/0.4 ML SYR SUBCUT SCH (23:44)
[2023-12-29] MEDS: Potassium Chlor 20 meq TAB.ER PO ONE (23:45)
[2023-12-29] MEDS: Lactated Ringers 1000 ml BAG 1,000 ML IV ONE (23:50)
[2023-12-29] MEDS: Magnesium Sulfate 2 gm BAG 2 GM/50 ML BAG IVPB ONE (23:51)
[2023-12-30 00:04] LABS: % Iron Saturation 10 % (15-55); .Transferrin 140 mg/dL (203-362); Iron < 20 ug/dL (50-212); Total Iron Binding Capacity 196 mcg/dL (250-450); Unsaturated Iron Binding 176 ug/dL
[2023-12-30 00:26] LABS: Ferritin 283.7 ng/mL (11-307)
[2023-12-30 00:30] LABS: Folate 12.14 ng/mL (5.90-24.80)
[2023-12-30 00:31] LABS: Vitamin B12 > 1450 pg/mL (180-914)
[2023-12-30] MEDS: Iohexol 350 (CONTRAST) 500 ML MDV IV ONE (01:43)
[2023-12-30] MEDS: HYDROmorphone 1 MG/1 ML SYRINGE IV SLOW PU SCH (01:46)
[2023-12-30 01:56] LABS: INR 1.52 (0.83-1.13)
[2023-12-30 04:09] LABS: Vitamin D Total 25(OH) 9.6 ng/mL (20-50)
[2023-12-30] MEDS: Vancomycin 1,250 MG in NS 0.9% 250 ml 250 ML IVPB SCH (04:21)
[2023-12-30] MEDS: Phytonadione Oral Solution 5 MG/25 ML UDC PO ONE (04:21)
[2023-12-30 04:36] LABS: ABS Lymphocytes 1.2 10^3/uL (1.0-4.8); ABS Monocytes 0.6 10^3/uL (0.0-0.9); ABS Neutrophils 7.5 10^3/uL (1.5-7.6); ABS Nucleated RBC 0.01 10^3/ul; Eosinophil % 0.1 %; Hemoglobin 6.8 g/dL (11.5-14.3); Mean Corpuscular Hemoglobin 33.2 pg (27-33); Mean Corpuscular Hgb Conc 34.1 g/dL (31-36); Mean Corpuscular Volume 97.4 fL (80-97); Mean Platelet Volume 6.9 fL (7.5-11.2); Nucleated Red Blood Cells % 0.1 %/100WBC (0.0-0.8); Platelet Count 217 10^3/uL (150-450); Red Blood Count 2.06 10^6/uL (3.63-4.92); Red Cell Distribution Width 15.4 % (12-17); White Blood Count 9.3 10^3/uL (3.8-11.8)
[2023-12-30 04:39] LABS: INR 1.56 (0.83-1.13)
[2023-12-30 04:59] LABS: Albumin 2.6 g/dL (3.2-5.2); Albumin/Globulin Ratio 0.6 (1-3); Calcium 8.8 mg/dL (8.6-10.3); Creatinine, Serum 0.57 mg/dL (0.51-0.95); Globulin 4.1 g/dL (2-4); Magnesium 2.1 mg/dL (1.9-2.7); Potassium 2.5 mmol/L (3.5-5.0); Total Bilirubin 0.5 mg/dL (0.2-1.0); Total Protein 6.7 g/dL (6.4-8.9); eGFR CKD-EPI 114.8 (>60)
[2023-12-30] MEDS: Potassium Chlor 20 meq TAB.ER PO SCH (05:24)
[2023-12-30] MEDS: KCL 20 MEQ/100 ML IVPREMIX 20 MEQ/100 ML BAG IV SCH (05:25)
[2023-12-30] MEDS: Cefepime 2 GM in Dextrose 2 GM/50 ML BAG IV SCH (08:53)
[2023-12-30] MEDS ORDERED: Buprenorphine 2 mg SL TAB SL SCH (09:00)
[2023-12-30 10:13] LABS: Hematocrit 22.6 % (35-45); Hemoglobin 7.7 g/dL (11.5-14.3)
[2023-12-30 10:23] LABS: Calcium 8.7 mg/dL (8.6-10.3); Creatinine, Serum 0.6 mg/dL (0.51-0.95); Potassium 3.2 mmol/L (3.5-5.0); eGFR CKD-EPI 113.4 (>60)
[2023-12-30] MEDS: Multivitamins/Minerals TAB PO SCH (11:39)
[2023-12-30] MEDS: Collagenase 250 units/gm OINT 1 tube TOPICAL SCH (13:22)
[2023-12-30 22:41] LABS: Calcium 8.6 mg/dL (8.6-10.3); Creatinine, Serum 0.63 mg/dL (0.51-0.95); Potassium 3.8 mmol/L (3.5-5.0); eGFR CKD-EPI 112.1 (>60)
[2023-12-31] MEDS: HYDROmorphone 0.5 MG/0.5 ML SYRINGE IV SLOW PU PRN (00:15)
[2023-12-31] MEDS: Vancomycin 1,250 MG in NS 0.9% 250 ml 250 ML IVPB SCH (00:19)
[2023-12-31 07:12] LABS: ABS Monocytes 0.6 10^3/uL (0.0-0.9); ABS Neutrophils 5.4 10^3/uL (1.5-7.6); Eosinophil % 0.5 %; Hematocrit 19.8 % (35-45); Hemoglobin 6.8 g/dL (11.5-14.3); Lymphocyte % 14.1 %; Mean Corpuscular Hemoglobin 33.6 pg (27-33); Mean Corpuscular Hgb Conc 34.3 g/dL (31-36); Mean Corpuscular Volume 97.8 fL (80-97); Mean Platelet Volume 6.9 fL (7.5-11.2); Platelet Count 177 10^3/uL (150-450); Red Blood Count 2.03 10^6/uL (3.63-4.92); Red Cell Distribution Width 15.9 % (12-17); White Blood Count 7.1 10^3/uL (3.8-11.8)
[2023-12-31 08:31] LABS: Hematocrit 19.6 % (35-45); Hemoglobin 6.7 g/dL (11.5-14.3)
[2023-12-31] MEDS: Potassium Chlor 20 meq TAB.ER PO ONE (09:30)
[2023-12-31] MEDS: Magnesium Sulfate 2 gm BAG 2 GM/50 ML BAG IVPB ONE (10:04)
[2023-12-31 10:42] LABS: Immature Retic Fraction 0.41
[2023-12-31 10:49] LABS: Hematocrit for Retic CNT 19.8 % (35-45); RBC Retic Count 2.02 10^6/ul (3.63-4.92)
[2023-12-31] MEDS: Vancomycin Trough Check NOTE FOLLOW UP ONE (11:55)
[2023-12-31 15:01] LABS: Hematocrit 19.9 % (35-45); Hemoglobin 6.8 g/dL (11.5-14.3)
[2023-12-31 15:16] LABS: Creatinine, Serum 0.53 mg/dL (0.51-0.95); Potassium 3.6 mmol/L (3.5-5.0); eGFR CKD-EPI 116.9 (>60)
[2023-12-31] MEDS: Vancomycin 1000 MG in NS 0.9% 250 ML IVPB SCH (20:20)
[2023-12-31 21:14] LABS: Hematocrit 21.4 % (35-45); Hemoglobin 7.4 g/dL (11.5-14.3)
[2024-01-01 06:28] LABS: Hematocrit 23.2 % (35-45); Hemoglobin 7.8 g/dL (11.5-14.3); Mean Corpuscular Hemoglobin 32.7 pg (27-33); Mean Corpuscular Hgb Conc 33.9 g/dL (31-36); Mean Corpuscular Volume 96.5 fL (80-97); Mean Platelet Volume 7.4 fL (7.5-11.2); Platelet Count 156 10^3/uL (150-450); Red Cell Distribution Width 16.8 % (12-17); White Blood Count 5.8 10^3/uL (3.8-11.8)
[2024-01-01 06:46] LABS: Calcium 8.7 mg/dL (8.6-10.3); Creatinine, Serum 0.51 mg/dL (0.51-0.95)
[2024-01-01] MEDS: KCL 20 MEQ/100 ML IVPREMIX 20 MEQ/100 ML BAG IV SCH (09:24)
[2024-01-01] MEDS: Potassium Chloride LIQUID 20 MEQ/15 ML LIQUID PO ONE (09:25)
[2024-01-01] MEDS: Potassium EFFERVES 25 meq TAB PO ONE (13:48)
[2024-01-01] MEDS: Heparin 5000 UNITS/ML 1 mL VIAL SUBCUT ONE (22:43)
[2024-01-02 06:07] LABS: Hematocrit 22.5 % (35-45); Hemoglobin 7.7 g/dL (11.5-14.3); Mean Corpuscular Hemoglobin 33.2 pg (27-33); Mean Corpuscular Hgb Conc 34.2 g/dL (31-36); Mean Corpuscular Volume 97.1 fL (80-97); Mean Platelet Volume 7.4 fL (7.5-11.2); Platelet Count 165 10^3/uL (150-450); Red Blood Count 2.32 10^6/uL (3.63-4.92); Red Cell Distribution Width 16.5 % (12-17); White Blood Count 6.3 10^3/uL (3.8-11.8)
[2024-01-02 06:23] LABS: Calcium 8.5 mg/dL (8.6-10.3); Creatinine, Serum 0.6 mg/dL (0.51-0.95); Magnesium 1.9 mg/dL (1.9-2.7); Potassium 3.9 mmol/L (3.5-5.0); eGFR CKD-EPI 113.4 (>60)
[2024-01-02 08:33] LABS: ABS Eosinophils 0.1 10^3/uL (0.0-0.5); ABS Lymphocytes 1.4 10^3/uL (1.0-4.8); ABS Monocytes 0.7 10^3/uL (0.0-0.9); ABS Nucleated RBC 0.01 10^3/ul; Eosinophil % 2.1 %; Nucleated Red Blood Cells % 0.2 %/100WBC (0.0-0.8); RBC Morphology Normal (Normal)
[2024-01-02 12:23] LABS: Creatinine, Serum 0.53 mg/dL (0.51-0.95); eGFR CKD-EPI 116.9 (>60)
[2024-01-02 12:33] LABS: Vancomycin Trough 18.7 mcg/mL
[2024-01-02] MEDS ORDERED: Propofol 10 MG/ML 20 ML BTL ONE ×3 (13:12→16:34)
[2024-01-02] MEDS ORDERED: Lidocaine 2% PF 5 ML VIAL ONE (13:13)
[2024-01-02] MEDS: Vancomycin Trough Check NOTE FOLLOW UP ONE (13:46)
[2024-01-02] MEDS ORDERED: Midazolam 10 mg/10 ml VIAL 1 mg/ml 10 ml VIAL (10 mg) ONE (15:55)
[2024-01-02] MEDS ORDERED: Midazolam 5 mg/5 ml VIAL 1 mg/ml 5 ml VIAL (5 mg) ONE (15:55)
[2024-01-02] MEDS ORDERED: fentaNYL 100 mcg/2 ml 50 MCG/ML VIAL ONE ×5 (15:56→17:32)
[2024-01-02] MEDS ORDERED: KETAMINE HCL 10 MG/ML 20 ml VIAL (200 MG) ONE (16:21)
[2024-01-02] MEDS ORDERED: Naloxone 0.4 mg VIAL 0.4 mg/ml 1 ml VIAL IV PRN (16:26)
[2024-01-02] MEDS ORDERED: Ondansetron 4 mg VIAL 2 MG/ML 2 ml VIAL IV PRN (16:26)
[2024-01-02] MEDS ORDERED: Acetaminophen IV 1 GM/100ML 1,000 MG/100 ML BAG IV PRN (16:26)
[2024-01-02] MEDS ORDERED: HYDROmorphone 0.5 MG/0.5 ML SYRINGE ONE ×3 (16:33→16:41)
[2024-01-02] MEDS ORDERED: Dexmedetomidine 200 mcg/2 ml 2 ml VIAL (200 mcg) ONE (16:44)
[2024-01-02] MEDS ORDERED: Ondansetron 4 mg VIAL 2 MG/ML 2 ml VIAL ONE (16:49)
[2024-01-02] MEDS ORDERED: Dexamethasone IV 4 MG/ML VIAL 1 ml VIAL ONE (16:49)
[2024-01-02] MEDS ORDERED: HYDROmorphone 1 MG/1 ML SYRINGE ONE (17:12)
[2024-01-02] MEDS: HYDROmorphone 1 MG/1 ML SYRINGE IV PRN (17:13)
[2024-01-02] MEDS: fentaNYL 100 mcg/2 ml 50 MCG/ML VIAL IV PRN (17:14)
[2024-01-03] MEDS: HYDROmorphone 1 MG/1 ML SYRINGE IV SLOW PU SCH ×2 (00:10→14:54)
[2024-01-03] MEDS: Vancomycin 1000 MG in NS 0.9% 250 ML IVPB SCH (02:42)
[2024-01-03] MEDS ORDERED: Vancomycin 1000 MG in NS 0.9% 250 ML IVPB SCH (03:00)
[2024-01-03 05:37] LABS: Hematocrit 22.6 % (35-45); Hemoglobin 7.7 g/dL (11.5-14.3); Mean Corpuscular Hemoglobin 33.1 pg (27-33); Mean Corpuscular Hgb Conc 33.9 g/dL (31-36); Mean Corpuscular Volume 97.5 fL (80-97); Mean Platelet Volume 7.6 fL (7.5-11.2); Platelet Count 167 10^3/uL (150-450); Red Blood Count 2.31 10^6/uL (3.63-4.92); Red Cell Distribution Width 16.3 % (12-17); White Blood Count 7.5 10^3/uL (3.8-11.8)
[2024-01-03 05:57] LABS: Calcium 8.6 mg/dL (8.6-10.3); Creatinine, Serum 0.51 mg/dL (0.51-0.95); Magnesium 1.9 mg/dL (1.9-2.7); Phosphorus 3.7 mg/dL (2.5-5.0); Potassium 4.1 mmol/L (3.5-5.0)
[2024-01-03 06:22] LABS: ABS Lymphocytes 0.7 10^3/uL (1.0-4.8); ABS Monocytes 0.3 10^3/uL (0.0-0.9); ABS Neutrophils 6.6 10^3/uL (1.5-7.6); ABS Nucleated RBC 0.01 10^3/ul; Eosinophil % 0.1 %; Lymphocyte % 8.8 %; Nucleated Red Blood Cells % 0.1 %/100WBC (0.0-0.8)
[2024-01-03] MEDS ORDERED: HYDROmorphone 1 MG/1 ML SYRINGE IV SLOW PU PRN (13:57)
[2024-01-03] MEDS: Cefepime 2 GM in Dextrose 2 GM/50 ML BAG IV SCH (14:53)
[2024-01-03] MEDS: Enoxaparin 40 MG/0.4 ML SYR SUBCUT SCH (17:51)
[2024-01-03 19:40] LABS: Hepatitis C Antibody Negative (Negative)
[2024-01-04 07:13] LABS: Creatinine, Serum 0.62 mg/dL (0.51-0.95); eGFR CKD-EPI 112.5 (>60)
[2024-01-04] MEDS: HYDROmorphone 1 MG/1 ML SYRINGE IV SLOW PU PRN (16:53)
[2024-01-04] MEDS: Vancomycin Trough Check NOTE FOLLOW UP ONE (19:25)
[2024-01-05] MEDS: Vancomycin 1000 MG in NS 0.9% 250 ML IVPB SCH (05:58)
[2024-01-05 06:18] LABS: Hematocrit 22.9 % (35-45); Hemoglobin 7.7 g/dL (11.5-14.3); Mean Corpuscular Hemoglobin 33.3 pg (27-33); Mean Corpuscular Hgb Conc 33.8 g/dL (31-36); Mean Corpuscular Volume 98.6 fL (80-97); Mean Platelet Volume 8.1 fL (7.5-11.2); Platelet Count 188 10^3/uL (150-450); Red Blood Count 2.32 10^6/uL (3.63-4.92); Red Cell Distribution Width 16.5 % (12-17); White Blood Count 6.9 10^3/uL (3.8-11.8)
[2024-01-05 06:38] LABS: Calcium 9.3 mg/dL (8.6-10.3); Creatinine, Serum 0.69 mg/dL (0.51-0.95); Magnesium 1.9 mg/dL (1.9-2.7); Phosphorus 4.7 mg/dL (2.5-5.0); Potassium 4.1 mmol/L (3.5-5.0); eGFR CKD-EPI 109.7 (>60)
[2024-01-05 07:39] LABS: ABS Basophils 0.1 10^3/uL (0.0-0.1); ABS Eosinophils 0.1 10^3/uL (0.0-0.5); ABS Lymphocytes 2.1 10^3/uL (1.0-4.8); ABS Monocytes 0.5 10^3/uL (0.0-0.9); ABS Neutrophils 4.1 10^3/uL (1.5-7.6); ABS Nucleated RBC 0.01 10^3/ul; Eosinophil % 1.7 %; Lymphocyte % 29.7 %; Nucleated Red Blood Cells % 0.1 %/100WBC (0.0-0.8)
[2024-01-05 13:47] VITALS: BP 100/52
[2024-01-05] MEDS: HYDROmorphone 1 MG/1 ML SYRINGE IV PRN (15:28)
[2024-01-06] MEDS ORDERED: Vancomycin Trough Check NOTE FOLLOW UP ONE (06:00)
== END 2024-01-05 16:30 | disposition home or self-care (01) | DRG 872 ==
LOC: ED 18:06 → EDHOLD 22:50 → SUATTDRO 22:50 → EDHOLD 12-30 15:51 → MED 12-30 16:11
PROVIDERS: ADMIT Internal Medicine; ATTEND Internal Medicine